=== PATIENT | male | born 1955 | race Caucasian/White ===

== ENCOUNTER → 2016-12-13 | Outpatient (CLI) | payer BC ==
[~2016-12-13] MED LIST: ACHD5005 PO; AMLO5TAB2 PO; AMOX-358 PO; ASP325T PO; CALC-9 PO; CLON1PAT14; CYAN10006 PO; CYCL10TA9 PO; FENO135C PO; FENO45CA; FINA5TAB6 PO; FRSM20T PO; FURO20TA4 PO; GABA-488 PO; GABA300C PO; GABA600T2 PO; GBPN100C PO; HYDR-3062 PO; HYDR-34 PO; HYDR-3820 PO; LEVO5TAB12 PO; MELA1TAB10 PO; MELO-195 PO; META800T PO; MULT-608 PO; NEBI5TAB8 PO; NFNEB10T PO; OMEG1CAP51 PO; POTA10CA43 PO; POTA20PA3 PO; PRED5TAB PO; TAMS0.4C2 PO; TRAM50TA2 PO; VITA-187 PO
[2016-12-13 06:46] LABS: MEAN PLATELET VOLUME 10.1 FL (7.4-10.4); RED BLOOD COUNT 5.18 10^6/uL (4.35-5.85); RED CELL DISTRIBUTION WIDTH 14.5 % (10.0-14.5); WHITE BLOOD COUNT 8.5 10^3/uL (4.3-11.0)
[2016-12-13 07:14] LABS: ALANINE AMINOTRANSFERASE 23 U/L (0-55); ANION GAP 11 MMOL/L (5-14); ASPARTATE AMINO TRANSFERASE 22 U/L (5-34); BILIRUBIN,TOTAL 0.5 MG/DL (0.1-1.0); BLOOD UREA NITROGEN 24 MG/DL (7-18); BUN/CREATININE RATIO 23; CALCIUM 9.7 MG/DL (8.5-10.1); CARBON DIOXIDE 23 MMOL/L (21-32); CHLORIDE 106 MMOL/L (98-107); CHOLESTEROL 244 MG/DL (< 200); CREATININE SERUM 1.06 MG/DL (0.60-1.30); DIRECT LDL 160 MG/DL (1-129); GFR ESTIMATED > 60; GLUCOSE 96 MG/DL (70-105); POTASSIUM 3.8 MMOL/L (3.6-5.0); SODIUM 140 MMOL/L (135-145); TOTAL PROTEIN 7.3 GM/DL (6.4-8.2); VLDL CHOLESTEROL 86 MG/DL (5-40)
[2016-12-13 07:44] LABS: TRIGLYCERIDES 430 MG/DL (<150)
== END ==
LOC: LAB 06:04
PROVIDERS: ATTEND Internal Medicine
DX: Z00.00 Encounter for general adult medical examination without abnormal findings (principal); E29.8 Other testicular dysfunction
CPT/HCPCS: 36415; 80053; 80061; 82306; 84153; 84403; 85027

== ENCOUNTER → 2017-06-08 | Outpatient (CLI) | payer BC | LOC: LAB 07:03 | PROVIDERS: ATTEND Internal Medicine | DX: M06.89 Other specified rheumatoid arthritis, multiple sites (principal) | CPT/HCPCS: 36415; 82550; 84550; 85652; 86038; 86039; 86141; 86162; 86200; 86235; 86255; 86430 ==

== ENCOUNTER → 2017-07-27 | Outpatient (CLI) | payer BC ==
[2017-07-27 08:15] LABS: HEMOGLOBIN 14.8 G/DL (13.3-17.7); MEAN PLATELET VOLUME 9.8 FL (7.4-10.4); RED BLOOD COUNT 5.41 10^6/uL (4.35-5.85); RED CELL DISTRIBUTION WIDTH 15.3 % (10.0-14.5); WHITE BLOOD COUNT 7.9 10^3/uL (4.3-11.0)
[2017-07-27 08:34] LABS: ALANINE AMINOTRANSFERASE 25 U/L (0-55); ALBUMIN 4.1 GM/DL (3.2-4.5); ALKALINE PHOSPHATASE 80 U/L (40-136); BILIRUBIN,TOTAL 0.4 MG/DL (0.1-1.0); BUN/CREATININE RATIO 18; CALCIUM 9.1 MG/DL (8.5-10.1); CARBON DIOXIDE 21 MMOL/L (21-32); CHLORIDE 108 MMOL/L (98-107); CREATININE SERUM 0.93 MG/DL (0.60-1.30); GFR ESTIMATED > 60; GLUCOSE 109 MG/DL (70-105); POTASSIUM 3.7 MMOL/L (3.6-5.0); SODIUM 140 MMOL/L (135-145); TOTAL PROTEIN 7.8 GM/DL (6.4-8.2)
== END ==
LOC: LAB 08:02
PROVIDERS: ATTEND Internal Medicine
DX: N18.3 Chronic kidney disease, stage 3 (moderate) (principal)
CPT/HCPCS: 36415; 80053; 85027

== ENCOUNTER → 2017-12-22 | Outpatient (CLI) | payer BC ==
[~2017-12-22] MED LIST changes: -AMLO5TAB2 PO; +AMLO5TAB7 PO
[2017-12-22 06:36] LABS: BASOPHILS % (AUTO) 1 % (0-10); EOSINOPHILS # (AUTO) 0.3 10^3/uL (0.0-0.3); EOSINOPHILS % (AUTO) 4 % (0-10); HEMATOCRIT 44 % (40-54); HEMOGLOBIN 14.8 G/DL (13.3-17.7); LYMPHOCYTES % (AUTO) 24 % (12-44); MEAN CORPUSCULAR HEMOGLOBIN 29 PG (25-34); MEAN CORPUSCULAR HGB CONC 34 G/DL (32-36); MEAN CORPUSCULAR VOLUME 87 FL (80-99); MEAN PLATELET VOLUME 9.4 FL (7.4-10.4); MONOCYTES # (AUTO) 0.7 X 10^3 (0.0-1.0); MONOCYTES % (AUTO) 9 % (0-12); NEUTROPHILS # (AUTO) 5.3 X 10^3 (1.8-7.8); NEUTROPHILS % (AUTO) 63 % (42-75); PLATELET COUNT 213 10^3/uL (130-400); RED BLOOD COUNT 5.05 10^6/uL (4.35-5.85); RED CELL DISTRIBUTION WIDTH 14.4 % (10.0-14.5); WHITE BLOOD COUNT 8.4 10^3/uL (4.3-11.0)
[2017-12-22 06:51] LABS: ALANINE AMINOTRANSFERASE 28 U/L (0-55); ALBUMIN 4.3 GM/DL (3.2-4.5); ALKALINE PHOSPHATASE 77 U/L (40-136); BILIRUBIN,TOTAL 0.6 MG/DL (0.1-1.0); BUN/CREATININE RATIO 16; CALCIUM 9.5 MG/DL (8.5-10.1); CARBON DIOXIDE 24 MMOL/L (21-32); CHLORIDE 105 MMOL/L (98-107); CREATININE SERUM 0.99 MG/DL (0.60-1.30); GFR ESTIMATED > 60; GLUCOSE 108 MG/DL (70-105); POTASSIUM 3.5 MMOL/L (3.6-5.0); SODIUM 140 MMOL/L (135-145); TOTAL PROTEIN 7.6 GM/DL (6.4-8.2)
== END ==
LOC: LAB 06:11
PROVIDERS: ATTEND Internal Medicine
DX: L40.59 Other psoriatic arthropathy (principal); Z79.899 Other long term (current) drug therapy
CPT/HCPCS: 36415; 80053; 85025

== ENCOUNTER → 2018-09-04 | Outpatient (CLI) | payer BC ==
[~2018-09-04] MED LIST changes: -AMLO5TAB7 PO; +AMLO5TAB9 PO; -GABA600T2 PO; +GBPN600T PO
[2018-09-04 06:41] LABS: BASOPHILS # (AUTO) 0.1 10^3/uL (0.0-0.1); BASOPHILS % (AUTO) 1 % (0-10); EOSINOPHILS # (AUTO) 0.2 10^3/uL (0.0-0.3); EOSINOPHILS % (AUTO) 3 % (0-10); HEMATOCRIT 45 % (40-54); LYMPHOCYTES % (AUTO) 23 % (12-44); MEAN CORPUSCULAR HEMOGLOBIN 28 PG (25-34); MEAN CORPUSCULAR HGB CONC 34 G/DL (32-36); MEAN CORPUSCULAR VOLUME 83 FL (80-99); MEAN PLATELET VOLUME 9.8 FL (7.4-10.4); MONOCYTES # (AUTO) 0.8 X 10^3 (0.0-1.0); MONOCYTES % (AUTO) 9 % (0-12); NEUTROPHILS # (AUTO) 5.5 X 10^3 (1.8-7.8); NEUTROPHILS % (AUTO) 64 % (42-75); PLATELET COUNT 209 10^3/uL (130-400); RED CELL DISTRIBUTION WIDTH 14.3 % (10.0-14.5); WHITE BLOOD COUNT 8.6 10^3/uL (4.3-11.0)
[2018-09-04 06:54] LABS: ALANINE AMINOTRANSFERASE 31 U/L (0-55); ALBUMIN 4.3 GM/DL (3.2-4.5); ALKALINE PHOSPHATASE 100 U/L (40-136); BILIRUBIN,TOTAL 0.7 MG/DL (0.1-1.0); BUN/CREATININE RATIO 15; CALCIUM 9.5 MG/DL (8.5-10.1); CARBON DIOXIDE 23 MMOL/L (21-32); CHLORIDE 107 MMOL/L (98-107); CHOLESTEROL 229 MG/DL (< 200); CREATININE SERUM 1.17 MG/DL (0.60-1.30); GFR ESTIMATED > 60; GLUCOSE 111 MG/DL (70-105); HDL CHOLESTEROL 31 MG/DL (40-60); SODIUM 141 MMOL/L (135-145); TOTAL PROTEIN 7.7 GM/DL (6.4-8.2); TRIGLYCERIDES 366 MG/DL (<150); VLDL CHOLESTEROL 73 MG/DL (5-40)
== END ==
LOC: LAB 06:20
PROVIDERS: ATTEND Internal Medicine Cardiovascular Disease
DX: R07.9 Chest pain, unspecified (principal); R06.09 Other forms of dyspnea; I10 Essential (primary) hypertension; E78.2 Mixed hyperlipidemia; G47.33 Obstructive sleep apnea (adult) (pediatric); Z98.890 Other specified postprocedural states
CPT/HCPCS: 36415; 80053; 80061; 84443; 85025

== ENCOUNTER → 2018-09-12 | Outpatient (CLI) | payer BC ==
[~2018-09-12] VITALS: Ht 188 cm; Wt 124.7 kg
[~2018-09-12] MED LIST changes: +ASPI-983 PO; +CALC600T80 PO; +CHOL20003 PO; +LOSA25TA41 PO; +MELA10CA2 PO; +MV,M1TAB4 PO; +OMG1KC PO; +REGADENOSON 0.4 MG/5 ML SYR (LEXISCAN) IV ONE; +ROSU10TA22 PO; +TAMS0.4C98 PO; +VITA1CAP19 PO
[2018-09-12] MEDS: CATHETER FLUSH 10 ML SYR IV PRN ×2 (11:49→13:18)
[2018-09-12 13:15] VITALS: BP 159/95
--- NOTE | 2018-09-12 20:00 | STRESS TEST ---
DATE OF SERVICE: 09/12/2018 LEXISCAN MYOVIEW STRESS TEST REPORT REFERRING PHYSICIAN: Dr. Hunter Morales. Baseline heart rate is 67. Baseline blood pressure 159/95. Baseline EKG is sinus rhythm with no ischemic changes. In summary, the patient was injected with 10.64 mCi of technetium-99 Myoview and the resting images were obtained. Then, the patient received 0.4 mg of Lexiscan, followed by 29.3 mCi of technetium-99 Myoview. Throughout the test, there were no EKG changes. The resting and stress images were reviewed and compared in the short axis, horizontal long axis, and vertical long axis views. Review of the images showed diaphragmatic attenuation with reversible ischemia involving the mid to apical inferior wall and inferolateral wall. SSS is 7, SDS 5, TID value 1.02. On the gated images, the left ventricle appeared to be in normal size with normal contractility. Calculated ejection fraction 54%. IN CONCLUSION: 1. The patient tolerated Lexiscan well. 2. Diaphragmatic attenuation with reversible ischemia involving the mid to apical inferior wall and inferolateral wall. 3. Normal left ventricular size with normal contractility. Calculated ejection fraction 54%. Job ID: [id number] DocumentID: [id number] Dictated Date: 09/12/2018 16:31:17 Gravity Flow Irrigator Date: 09/12/2018 20:00:09 Dictated By: ELIER LUGO MD
== END ==
LOC: CARD 11:38
PROVIDERS: ATTEND Internal Medicine Cardiovascular Disease
DX: R07.9 Chest pain, unspecified (principal); R06.09 Other forms of dyspnea; I10 Essential (primary) hypertension; E78.2 Mixed hyperlipidemia; G47.33 Obstructive sleep apnea (adult) (pediatric); Z98.890 Other specified postprocedural states
CPT/HCPCS: 78452; 93017

== ENCOUNTER → 2018-09-13 | Outpatient (CLI) | payer BC ==
[~2018-09-13] MED LIST changes: -REGADENOSON 0.4 MG/5 ML SYR (LEXISCAN) IV ONE
== END ==
LOC: CARD 09-04 06:20
PROVIDERS: ATTEND Internal Medicine Cardiovascular Disease
DX: R07.9 Chest pain, unspecified (principal); R06.09 Other forms of dyspnea; I10 Essential (primary) hypertension; E78.2 Mixed hyperlipidemia; G47.33 Obstructive sleep apnea (adult) (pediatric); Z98.890 Other specified postprocedural states; I08.0 Rheumatic disorders of both mitral and aortic valves
CPT/HCPCS: 93306

== ENCOUNTER 2018-09-14 07:39 | Day surgery (SDC) | payer BC ==
[~2018-09-14] VITALS: Ht 188 cm; Wt 124.3 kg
[~2018-09-14 07:39] MED LIST changes: -ASPI-983 PO; -CALC600T80 PO; -CHOL20003 PO; -LOSA25TA41 PO; -MELA10CA2 PO; -MV,M1TAB4 PO; -OMG1KC PO; -ROSU10TA22 PO; -TAMS0.4C98 PO; -VITA1CAP19 PO
[2018-09-14] MEDS ORDERED: HEParin (CATH LAB) 2,000 ML IV ONE (07:43)
[2018-09-14] MEDS ORDERED: NS IV 1000 ML 1,000 ML ONE (07:43)
[2018-09-14] MEDS ORDERED: LIDOCAINE 1% INJ 20 ML 20 ML VIAL ONE (07:43)
[2018-09-14] MEDS ORDERED: NS IV 1000 ML 1,000 ML IV SCH ×2 (07:53→13:56)
[2018-09-14 08:04] VITALS: BP 153/95
[2018-09-14 08:13] VITALS: BP 153/95
--- NOTE | 2018-09-14 08:23 | Diagnostic Imaging Report ---
PATIENT HISTORY: CHEST PAIN. Abnormal stress test, hypertension, shortness of breath. TECHNIQUE: Single frontal view of the chest COMPARISON: 11/16/2015 FINDINGS: Lung volumes are mildly large. No focal consolidation is seen. There is no pleural effusion or pneumothorax. The cardiac silhouette appears mildly prominent, likely due to the AP technique. No acute osseous abnormality seen. IMPRESSION: No acute pulmonary abnormality seen. Dictated by: Dictated on workstation # [id number]
[2018-09-14 08:37] LABS: INR 0.9 (0.8-1.4); PROTHROMBIN TIME PATIENT 12.9 SEC (12.2-14.7)
[2018-09-14] MEDS ORDERED: ASPI-983 PO (08:51)
[2018-09-14] MEDS ORDERED: HYDR-3820 PO (08:51)
[2018-09-14] MEDS ORDERED: CHOL20003 PO (08:51)
[2018-09-14] MEDS ORDERED: LOSA25TA41 PO (08:51)
[2018-09-14] MEDS ORDERED: GBPN600T PO (08:51)
[2018-09-14] MEDS ORDERED: TAMS0.4C98 PO (08:51)
[2018-09-14] MEDS ORDERED: OMG1KC PO (08:51)
[2018-09-14] MEDS ORDERED: CALC600T80 PO (08:51)
[2018-09-14] MEDS ORDERED: VITA1CAP19 PO (08:51)
[2018-09-14] MEDS ORDERED: MELA10CA2 PO (08:51)
[2018-09-14] MEDS ORDERED: MV,M1TAB4 PO (08:51)
[2018-09-14] MEDS ORDERED: ROSU10TA22 PO (08:51)
--- NOTE | 2018-09-14 08:54 | NUR ---
SPOKE WITH THE PATIENT AND HIS ABOUT MEDICATIONS. SHE HAD A DETAILED MEDICATION LIST WITH HER AND I COMPARED WITH THE LIST SENT OVER FROM THE OFFICE.
[2018-09-14] MEDS ORDERED: MIDAZOLAM 5 MG/5 ML (VERSED) VIAL ONE (09:30)
--- NOTE | 2018-09-14 12:56 | Cardiac Procedure Note-CS/ASA ---
Pre-Procedure Note Pre-Op Procedure Note H&P Reviewed The H&P was reviewed, patient examined and no changes noted. Date H&P Reviewed: September 14, 2018 Time H&P Reviewed: 12:55 Conscious Sedation Pre-Proced Time 12:55 ASA Score 3 For ASA 3 and 4: Consider anesthesia and medical clearance. Also, for patients with a history of failed moderate sedation consider anesthesia. Airway Lungs Heart ASA score ASA 1: a normal healthy patient ASA 2: a patient with a mild systemic disease (mid diabetes, controlled hypertension, obesity x ASA 3: a patient with a severe systemic disease that limits activity (angina, COPD, prior Myocardial infarction) ASA 4: a patient with an incapacitating disease that is a constant threat to life (CHF, renal failure) ASA 5: a moribund patient not expected to survive 24 hrs. (ruptured aneurysm) ASA 6: a declared brain- patient whose organs are being harvested. For emergent operations, add the letter E after the classification Mallampati Classification Grade 3 Sedation Plan Analgesia, Amnesia, Plan communicated to team members, Discussed options with patient/fam, Discussed risks with patient/fam The patient is an appropriate candidate to undergo the planned procedure, sedation, and anesthesia. The patient immediately re-assessed prior to indication. ELIER LUGO MD September 14, 2018 12:56
--- NOTE | 2018-09-14 13:58 | Discharge Inst-Post CATH ---
Discharge Inst-CATH/EP Post Cardiac Cath/EP D/C Inst Follow Up/Plan Appointment with Dr. LUGO's office in 2-4 weeks <b>CARDIAC CATH/EP PROCEDURE DISCHARGE INSTRUCTIONS</b> Cardiac Rehab Please be expecting a follow up call from Cardiac Rehab within in one week. ACTIVITY * Go Home directly and rest. * Limit activity of the leg (or wrist if it was used) for 7 days including aerobics, swimming, jogging, bicycling, etc. * Restrict stair-climbing for 7 days if possible, if not, climb up with your non-cath leg, then bring together on the same step. * Avoid lifting, pushing, pulling or excessive movement of the affected extremity for 7 days. * Customary sexual activity may be resumed after 2 days-use caution not to use a position that strains or causes pain to the affected extremity. * No driving for 24 hours. * NO SMOKING. * Avoid straining for bowel movements for 7 days. * Gentle walking on level ground is allowed. * Returning to work will depend on the type of procedure and the results. Your doctor will discuss this with you. CALL YOUR DOCTOR FOR ANY OF THE FOLLOWING: *If bleeding from the puncture site occurs- Apply gentle pressure to site with clean cloth and call your doctor or EMS. * If a knot or lump forms under the skin, increases in size, or causes pain. * If bruising appears to be worsening or moving further down your leg instead of disappearing. * Temperature above 101 F. CARE OF YOUR GROIN INCISION; * Bruising or purple discoloration of the skin near the puncture site is common. * You may shower only, no bathtub bathing for 5 days. Be careful to avoid slipping as your leg may feel stiff. * If a closure device was used on your femoral artery, please see the attached guide regarding care of the device and your leg. * Leave dressing on FOR 24 hours. CARE OF YOUR WRIST INCISION; * Bruising or purple discoloration of the skin near the puncture site is common. * You may shower. * DO NOT submerge wrist. * Leave dressing on FOR 24 hours. ELIER LUGO MD September 14, 2018 13:58
[2018-09-14] MEDS ORDERED: PATIENT MAY USE OWN MEDS, ALL PO SCH (14:00)
--- NOTE | 2018-09-14 14:02 | Cardiac Cath Report ---
Cardiac Cath Report Physician (s)/Concrete [employer] Mason (s) Physician ELIER LUGO MD Pre-Procedure Diagnosis Pre-Procedure Diagnosis: coronary artery disease Post-Procedure Note Procedure Start Date: September 14, 2018 Name of Procedure: Left heart catheterization Left ventriculogram Aortic arch angiogram Findings/Procedure Note PROCEDURE NOTE: 62 years old gentleman with history of hypertension, recurrent chest pain, had an abnormal stress test, scheduled for cardiac catheterization, during the procedure noted to have significant tortuosity in the thoracic aorta. I did aortic arch angiogram to evaluate the aorta. After explaining the procedure to the patient, all pros and cons were explained, all questions were answered. The patient signed the consent and then he was placed on the cardiac catheterization laboratory. Groin was prepped SL fashion local anesthesia was used. Sheath placed in the Right femoral artery. Kimber[place] right and left catheter were used to access the coronary system. Pigtail was used to access the left ventricular cavity. Left ventriculogram was done Aortic arch angiogram was done At the end of the procedure the sheath was removed. Closure device was used FINDINGS: Hemodynamics LV 160/18, end-diastolic pressure of 18 Aorta 175/98 mean of 129 ANATOMY: Left Main is free of obstructive disease Left Anterior Descending has mild disease nonobstructive disease Left Circumflex has mild disease nonobstructive disease Right Coronory Artery is tortuous artery with 40-50 percent stenosis nonobstru ctive disease LV Gram is normal in size with normal contractility estimated ejection fraction 60 percent Aorta evaluation done with aortic arch angiogram which showed some tortuosity in the aorta, no dissection or aneurysm, origin of the innominate artery, left carotid artery and left subclavian artery showed mild plaque, no significant disease CONCLUSION: 1. Mild coronary artery disease, 40-50 percent proximal right coronary artery nonobstructive disease otherwise no significant obstructive disease 2. Normal left ventricular size and systolic function test and ejection fraction 60 percent 3. Normal aortic arch and great vessels of the neck DISCUSSION AND RECOMMENDATION: continue with medical therapy no intervention is needed Anesthesia Type: Conscious Sedation Estimated blood loss (mL): 20 ml Contrast Amount: 67 ml Total Radiation Dose: 728 mGy Post-Procedure Diagnosis Post-operative diagnosis: Chest pain Coronary artery disease Hypertension Hyperlipidemia ELIER LUGO MD September 14, 2018 14:02
[2018-09-14 14:15] VITALS: BP 144/101
[2018-09-14 14:30] VITALS: BP 174/117
--- NOTE | 2018-09-14 14:37 | NUR ---
PT REQUESTING PAIN MEDICATION, REQUESTING HIS BP MEDS BE GIVEN, PT AND INFORMED TO BRING MEDICATIONS FROM HOME, STATES "CAN'T HE JUST TAKE YOURS", PT AND EDUCATED ON USE OF HOME MEDS VS HOSPITAL. NEW ORDERS RECEIVED VIA TELEPHONE TO RESUME ALL HOME MEDICATIONS.
[2018-09-14 14:45] VITALS: BP 154/106
[2018-09-14] MEDS ORDERED: HYDROcodone/APAP 10 MG/325 MG (LORTAB) TAB PO PRN (14:45)
[2018-09-14 15:00] VITALS: BP 142/99
[2018-09-14] MEDS ORDERED: HYDROcodone/APAP 10 MG/325 MG (LORTAB) TAB PO ONE (15:14)
[2018-09-14] MEDS ORDERED: ASPIRIN E.C. 81 MG (ECOTRIN) TAB PO SCH (15:24)
[2018-09-14] MEDS ORDERED: FINASTERIDE (PROSCAR) 5 MG TAB PO SCH (15:26)
[2018-09-14] MEDS ORDERED: FUROSEMIDE 20 MG (LASIX) TAB PO SCH (15:27)
[2018-09-14] MEDS ORDERED: amLODIPine 5 MG (NORVASC) TAB PO SCH (15:28)
[2018-09-14] MEDS ORDERED: LOSARTAN 25 MG (COZAAR) TAB PO SCH (15:29)
[2018-09-14] MEDS ORDERED: VITAMIN D3 1,000 UNITS (CHOLECALCIFEROL) TABLET PO SCH (17:00)
[2018-09-14] MEDS ORDERED: CALCIUM CARBONATE 600 MG (CALCARB) TAB PO SCH (17:00)
[2018-09-14] MEDS ORDERED: KCL 10 MEQ TAB (MICRO K) PO SCH (17:00)
[2018-09-14] MEDS ORDERED: GABAPENTIN 600 MG (NEURONTIN) TAB PO SCH (17:00)
[2018-09-14] MEDS ORDERED: OMEGA 3 (FISH OIL) 1000 MG CAP PO SCH (17:00)
[2018-09-14] MEDS ORDERED: TAMSULOSIN 0.4 MG (FLOMAX) CAP PO SCH (18:00)
[2018-09-14] MEDS ORDERED: CYCLOBENZAPRINE 10 MG (FLEXERIL) TAB PO SCH (21:00)
[2018-09-14] MEDS ORDERED: NEBIVOLOL 5 MG TAB (BYSTOLIC) PO SCH (21:00)
[2018-09-14] MEDS ORDERED: LORATADINE (CLARITIN) 10 MG TAB PO SCH (21:00)
[2018-09-14] MEDS ORDERED: ROSUVASTATIN 10 MG (CRESTOR) TABLET PO SCH (21:00)
[2018-09-14] MEDS ORDERED: MELATONIN 3 MG TABLET PO SCH (21:00)
[2018-09-15] MEDS ORDERED: MULTIVIT W/MINERALS TAB (THERAGRAN M) PO SCH (07:00)
[2018-09-15] MEDS ORDERED: VITAMIN B COMPLEX PO SCH (09:00)
== END 2018-09-14 18:30 | disposition home or self-care (01) ==
LOC: CATH 07:39 → ICU 14:10 → CATH 18:30
PROVIDERS: ATTEND Internal Medicine Cardiovascular Disease
DX: R07.9 Chest pain, unspecified (principal); I25.10 Atherosclerotic heart disease of native coronary artery without angina pectoris; I77.1 Stricture of artery; I10 Essential (primary) hypertension; E78.2 Mixed hyperlipidemia; G47.33 Obstructive sleep apnea (adult) (pediatric); J44.9 Chronic obstructive pulmonary disease, unspecified; R94.31 Abnormal electrocardiogram [ECG] [EKG]; M19.91 Primary osteoarthritis, unspecified site; E66.9 Obesity, unspecified; Z68.35 Body mass index [BMI] 35.0-35.9, adult; Z87.891 Personal history of nicotine dependence; Z79.82 Long term (current) use of aspirin; Z79.899 Other long term (current) drug therapy
CPT/HCPCS: 36221; 36415; 71045; 85610; 85730; 87081; 93458

== ENCOUNTER → 2020-01-22 | Outpatient (CLI) | payer OTHER ==
[~2020-01-22] MED LIST changes: +ACHYD1T PO; +ASPI-1238 PO; +CALC600T80 PO; +CHOL20003 PO; +CYAN-41 PO; -CYAN10006 PO; -HYDR-3062 PO; -HYDR-3820 PO; +LOSA25TA41 PO; +MELA10CA2 PO; +MV,M1TAB4 PO; +OMG1KC PO; +ROSU10TA22 PO; +TMSL.4C PO; +TRM50T PO; +VITA1CAP19 PO
[2020-01-22 06:15] LABS: HEMOGLOBIN 14.1 g/dL (13.3-17.7); MEAN PLATELET VOLUME 9.6 fL (9.0-12.2); WHITE BLOOD COUNT 10.4 10^3/uL (4.3-11.0)
[2020-01-22 06:38] LABS: CHLORIDE 104 MMOL/L (98-107); POTASSIUM 4.1 MMOL/L (3.6-5.0); SODIUM 139 MMOL/L (135-145)
[2020-01-22 06:39] LABS: ALBUMIN 4.1 GM/DL (3.2-4.5)
[2020-01-22 06:40] LABS: CALCIUM 9.4 MG/DL (8.5-10.1); TRIGLYCERIDES 152 MG/DL (<150); VLDL CHOLESTEROL 30 MG/DL (5-40)
[2020-01-22 06:41] LABS: GLUCOSE 105 MG/DL (70-105); TOTAL PROTEIN 7.5 GM/DL (6.4-8.2)
[2020-01-22 06:42] LABS: CARBON DIOXIDE 25 MMOL/L (21-32)
[2020-01-22 06:43] LABS: BILIRUBIN,TOTAL 0.9 MG/DL (0.1-1.0)
[2020-01-22 06:45] LABS: ALKALINE PHOSPHATASE 76 U/L (40-136); CHOLESTEROL 133 MG/DL (< 200); CREATININE SERUM 1.04 MG/DL (0.60-1.30); GFR ESTIMATED > 60
[2020-01-22 06:46] LABS: BUN/CREATININE RATIO 18
[2020-01-22 06:47] LABS: HDL CHOLESTEROL 32 MG/DL (40-60)
[2020-01-22 06:48] LABS: ALANINE AMINOTRANSFERASE 19 U/L (0-55)
== END ==
LOC: LAB 05:49
PROVIDERS: ATTEND Internal Medicine
DX: Z00.00 Encounter for general adult medical examination without abnormal findings (principal); I10 Essential (primary) hypertension; M51.06 Intervertebral disc disorders with myelopathy, lumbar region
CPT/HCPCS: 80053; 80061; 82306; 85027; 86735; 86765; G0103; 36415; 84153

== ENCOUNTER → 2020-03-25 | Outpatient (CLI) | payer OTHER ==
[~2020-03-25] MED LIST changes: +AMLO-250 PO; -AMLO5TAB9 PO
--- NOTE | 2020-03-25 13:37 | Diagnostic Imaging Report ---
PROCEDURE: US Venous Lower Ext Royal. TECHNIQUE: Multiple real-time grayscale images were obtained over the lower extremities in various projections, bilaterally. Additional duplex Doppler and color Doppler images were also obtained. INDICATION: Bilateral leg pain and cramping. FINDINGS: There is no evidence of right or left lower extremity DVT. Both lower extremity deep venous systems show normal compressibility with normal response to augmentation and Valsalva. No fluid collection or mass is detected. IMPRESSION: No evidence of right or left lower extremity DVT. Dictated by: Dictated on workstation # [id number]
== END ==
LOC: RAD 12:45
PROVIDERS: ATTEND Internal Medicine
DX: I80.203 Phlebitis and thrombophlebitis of unspecified deep vessels of lower extremities, bilateral (principal)
CPT/HCPCS: 93970

== ENCOUNTER → 2020-04-03 | Outpatient (CLI) | payer OTHER ==
[2020-04-03 11:43] LABS: CREATININE SERUM 1.04 MG/DL (0.60-1.30)
== END ==
LOC: LAB 10:53
PROVIDERS: ATTEND Internal Medicine
DX: M79.669 Pain in unspecified lower leg (principal); Z87.891 Personal history of nicotine dependence
CPT/HCPCS: 36415; 82043; 82085; 82550; 82565; 85652; 86021; 86038; 86039; 86141; 86162; 86200; 86235; 86255; 86431

== ENCOUNTER → 2020-07-13 | Outpatient (CLI) | payer OTHER | LOC: WOUNDCARE 09:45 | PROVIDERS: ATTEND Surgery | DX: T23.322A Burn of third degree of single left finger (nail) except thumb, initial encounter (principal); I89.0 Lymphedema, not elsewhere classified; W86.1XXA Exposure to industrial wiring, appliances and electrical machinery, initial encounter | CPT/HCPCS: 16020; G0463 ==

== ENCOUNTER 2020-11-01 23:17 | Inpatient (IN) | payer OTHER ==
[~2020-11-01] VITALS: Ht 190 cm; Wt 118.2 kg
[2020-11-02] VITALS (7 sets, daily range): BP systolic 132–157; BP diastolic 79–91
[2020-11-02] MEDS ORDERED: NS IV 1000 ML 1,000 ML IV SCH
[2020-11-02] MEDS ORDERED: ACETAMINOPHEN 500 MG TAB (TYLENOL) PO ONE
--- NOTE | 2020-11-02 00:03 | ED Respiratory ---
General Chief Complaint: Respiratory Problems Stated Complaint: SOB / COUGH / CONGESTION Nursing Triage Note: c/o cough, soa for a few days. History of Present Illness Date Seen by Provider: Nov 01, 2020 Time Seen by Provider: 23:48 Initial Comments Patient is a 65-year-old male who presents to the emergency department today with a chief complaint of shortness of breath, cough, upper respiratory congestion and generalized feelings of malaise and headache for the last 4 to 5 days. Patient states he has become progressively more short of breath in the last 24 to 48 hours. He feels like he cannot catch his breath. He is having some diarrhea he is having body aches. He denies earache but has a mild sore throat. No chest pain but has the shortness of breath. He states his cough is occasionally productive but mostly dry. No problems with urination. He has a history of hypertension and high cholesterol he is not a diabetic. He is not a smoker. He is not Covid vaccinated. All other review of systems reviewed and negative except as stated above. Timing/Duration: week, getting worse Severity: moderate Prior Episodes/Possible Cause: illness exposure Modifying Factors: Improves With Coughing Associated Symptoms: cough, fever/chills, headache, muscle aches, nasal congestion, shortness of breath, sore throat Allergies and Home Medications Allergies Coded Allergies: hydromorphone HCl (Unverified Allergy, Intermediate, ITCHING, HAS RECEIVED HYDROCODONE IN THE PAST, 11/16/15) fentanyl (Unverified Allergy, Mild, 12/30/08) nalbuphine (Unverified Allergy, Mild, RECEIVED MORPHINE IN OR, 11/16/15) Home Medications Amlodipine Besylate 5 Mg Tablet, 5 MG PO DAILY, (Reported) Aspirin 81 Mg Tablet.dr, 81 MG PO DAILY, (Reported) Calcium Carbonate 600 Mg Tablet, 1,200 MG PO BID, (Reported) Cholecalciferol (Vitamin D3) 2,000 Unit Capsule, 2,000 UNIT PO BID, (Reported) Cyclobenzaprine HCl 10 Mg Tablet, 10 MG PO HS, (Reported) Finasteride 5 Mg Tablet, 5 MG PO DAILY, (Reported) Furosemide 20 Mg Tablet, 20 MG PO DAILY, (Reported) Gabapentin 600 Mg Tablet, 600 MG PO QID, (Reported) Hydrocodone Bit/Acetaminophen 1 Each Tablet, 1-2 TAB PO Q6H PRN for PAIN- MODERATE, (Reported) Levocetirizine Dihydrochloride 5 Mg Tablet, 5 MG PO HS, (Reported) Losartan Potassium 25 Mg Tablet, 25 MG PO DAILY, (Reported) Melatonin 10 Mg Capsule, 10 MG PO HS, (Reported) Metaxalone 800 Mg Tablet, 800 MG PO BID, (Reported) Mv,Minerals/FA/Lycopene/Ginkgo 1 Each Tablet, 1 TAB PO DAILY, (Reported) Nebivolol HCl 10 Mg Tab, 10 MG PO HS, (Reported) [place] 3 Polyunsat Fatty Acids 1,000 Mg Cap, 1,000 MG PO DAILY, (Reported) Potassium Chloride 10 Meq Capsule.er, 10 MEQ PO BID, (Reported) Rosuvastatin Calcium 10 Mg Tablet, 10 MG PO HS, (Reported) HAS NOT STARTED YET Tamsulosin HCl 0.4 Mg Cap, 0.4 MG PO DAILY, (Reported) Tramadol HCl 50 Mg Tablet, 50 MG PO QID, (Reported) Vitamin B Complex 1 Each Capsule, 1 CAP PO DAILY, (Reported) Patient Home Medication List Home Medication List Reviewed: Yes Review of Systems Review of Systems Constitutional: see HPI, chills, fever, malaise, weakness EENTM: throat pain Respiratory: cough, short of breath Cardiovascular: no symptoms reported Gastrointestinal: diarrhea Genitourinary: no symptoms reported Musculoskeletal: muscle cramps Skin: no symptoms reported Psychiatric/Neurological: No Symptoms Reported All Other Systems Reviewed Negative Unless Noted: Yes Past Lahglre-Ilfhic-Fcrvqz Hx Patient Social History Pt feels they are or have been: No Immunizations Up To Date Tetanus Booster (TDap): Unknown Seasonal Allergies Seasonal Allergies: No Past Medical History Gallbladder, Joint Replacement, Orthopedic Respiratory: Yes Sleep Apnea Currently Using CPAP: Yes Cardiac: Yes High Cholesterol, Hypertension Neurological: No Reproductive Disorders: No Genitourinary: No Gastrointestinal: No Degenerate Disk Disease, Back Injury, Chronic Back Pain Cancer: No Blood Disorders: No Adverse Reaction/Blood Tranf: No Family Medical History Unknown family medical history No Pertinent Family Hx Physical Exam Vital Signs - First Documented 11/01/20 11/02/20 23:55 00:20 Temp 38.9 Pulse 80 Resp 24 B/P (MAP) 154/89 (110) Pulse Ox 95 O2 Delivery Nasal Cannula O2 Flow Rate 3.00 Capillary Refill : Height: 6'2.00" Weight: 274lbs. 0.0oz. 124.577549zh; 32.00 BMI Method:Stated General Appearance: WD/WN, no apparent distress Eyes: Bilateral Eye Normal Inspection, Bilateral Eye PERRL HEENT: PERRL/EOMI, other (very dry oral mucosa) Neck: full range of motion Respiratory: no respiratory distress, no accessory muscle use, wheezing Cardiovascular: regular rate, rhythm Gastrointestinal: normal bowel sounds, non tender, soft Extremities: non-tender, normal inspection, no pedal edema, no calf tenderness Neurologic/Psychiatric: alert, normal mood/affect, oriented x 3 Skin: normal color, warm/dry Focused Exam Lactate Level 11/01/20 23:45: Lactic Acid Level 1.31 Lactic Acid Level Laboratory Tests Test 11/01/20 23:45 Lactic Acid Level 1.31 MMOL/L (0.50-2.00) Progress/Results/Core Measures Suspected Sepsis SIRS Temperature: Pulse: 80 Respiratory Rate: 24 Laboratory Tests 11/01/20 23:45: White Blood Count 5.6 Blood Pressure 154 /89 Mean: 110 11/01/20 23:45: Lactic Acid Level 1.31 Laboratory Tests 11/01/20 23:45: Creatinine 1.30, INR Comment 1.0, Platelet Count 239, Total Bilirubin 0.5 Results/Orders Lab Results Laboratory Tests Test 11/01/20 23:45 11/01/20 23:57 11/02/20 00:10 Range/Units White Blood Count 5.6 4.3-11.0 10^3/uL Red Blood Count 5.13 4.30-5.52 10^6/uL Hemoglobin 13.9 13.3-17.7 g/dL Hematocrit 43 40-54 % Mean Corpuscular Volume 84 80-99 fL Mean Corpuscular Hemoglobin 27 25-34 pg Mean Corpuscular Hemoglobin Concent 32 32-36 g/dL Red Cell Distribution Width 14.6 H 10.0-14.5 % Platelet Count 239 130-400 10^3/uL Mean Platelet Volume 9.9 9.0-12.2 fL Immature Granulocyte % (Auto) 1 % Neutrophils (%) (Auto) 71 42-75 % Lymphocytes (%) (Auto) 21 12-44 % Monocytes (%) (Auto) 6 0-12 % Eosinophils (%) (Auto) 1 0-10 % Basophils (%) (Auto) 0 0-10 % Neutrophils # (Auto) 4.0 1.8-7.8 10^3/uL Lymphocytes # (Auto) 1.2 1.0-4.0 10^3/uL Monocytes # (Auto) 0.4 0.0-1.0 10^3/uL Eosinophils # (Auto) 0.1 0.0-0.3 10^3/uL Basophils # (Auto) 0.0 0.0-0.1 10^3/uL Immature Granulocyte # (Auto) 0.0 0.0-0.1 10^3/uL Prothrombin Time 13.2 12.2-14.7 SEC INR Comment 1.0 0.8-1.4 Activated Partial Thromboplast Time 28 24-35 SEC D-Dimer 1.35 H 0.00-0.49 UG/ML Sodium Level 140 135-145 MMOL/L Potassium Level 4.3 3.6-5.0 MMOL/L Chloride Level 105 98-107 MMOL/L Carbon Dioxide Level 22 21-32 MMOL/L Anion Gap 13 5-14 MMOL/L Blood Urea Nitrogen 28 H 7-18 MG/DL Creatinine 1.30 0.60-1.30 MG/DL Estimat Glomerular Filtration Rate 56 BUN/Creatinine Ratio 22 Glucose Level 94 70-105 MG/DL Lactic Acid Level 1.31 0.50-2.00 MMOL/L Calcium Level 8.7 8.5-10.1 MG/DL Corrected Calcium 8.9 8.5-10.1 MG/DL Total Bilirubin 0.5 0.1-1.0 MG/DL Aspartate Amino Transf (AST/SGOT) 46 H 5-34 U/L Alanine Aminotransferase (ALT/SGPT) 48 0-55 U/L Alkaline Phosphatase 61 40-136 U/L Total Protein 7.3 6.4-8.2 GM/DL Albumin 3.8 3.2-4.5 GM/DL Procalcitonin 0.05 <0.10 NG/ML SARS-CoV-2 RNA (RT-PCR) Detected H Not Detecte Urine Color ORANGE Urine Clarity SL CLOUDY Urine pH 5.5 5-9 Urine Specific [place] 1.015 L 1.016-1.022 Urine Protein TRACE H NEGATIVE Urine Glucose (UA) NEGATIVE NEGATIVE Urine Ketones NEGATIVE NEGATIVE Urine Nitrite NEGATIVE NEGATIVE Urine Bilirubin NEGATIVE NEGATIVE Urine Urobilinogen 1.0 < = 1.0 MG/DL Urine Leukocyte Esterase NEGATIVE NEGATIVE Urine RBC (Auto) NEGATIVE NEGATIVE Urine RBC NONE /HPF Urine WBC NONE /HPF Urine Squamous Epithelial Cells 0-2 /HPF Urine Crystals NONE /LPF Urine Bacteria NEGATIVE /HPF Urine Casts NONE /LPF Urine Mucus SMALL H /LPF Urine Culture Indicated CULTURE PENDING My Orders Orders - NETO GRAYSON MD Cbc With Automated Diff (11/01/20 23:57) Comprehensive Metabolic Panel (11/01/20 23:57) Blood Culture (11/01/20 23:57) Sputum Culture (11/01/20 23:57) Urinalysis (11/01/20 23:57) Urine Culture (11/01/20 23:57) Protime With Inr (11/01/20 23:57) Partial Thromboplastin Time (11/01/20 23:57) Ed Iv/Invasive Line Start (11/01/20 23:57) Ed Iv/Invasive Line Start (11/01/20 23:57) Vital Signs Adult Sepsis Patie Q15M (11/01/20 23:57) O2 (11/01/20 23:57) Remove Rings In Anticipation O (11/01/20 23:57) Lactic Acid Analyzer (11/01/20 23:57) Fibrin Degradation Products (11/01/20 23:57) Procalcitonin (Pct) (11/01/20 23:57) Covid 19 Inhouse Test (11/01/20 23:57) Ns Iv 1000 Ml (Sodium Chloride 0.9%) (11/02/20 00:00) Acetaminophen Tablet (Tylenol Tablet) (11/02/20 00:00) Albuterol Inhaler (Ventolin Hfa) (11/02/20 02:00) Chest 1 View, Ap/Pa Only (11/02/20 00:01) Albuterol Inhaler (Ventolin Hfa) (11/02/20 00:11) Medications Given in ED Current Medications Medications Dose Ordered Sig/Jerry Route Start Time Stop Time Status Last Admin Dose Admin Acetaminophen 1,000 mg ONCE ONCE PO 11/02/20 00:00 11/02/20 00:01 DC 11/02/20 00:21 1,000 MG Vital Signs/I&O 11/01/20 11/02/20 23:55 00:20 Temp 38.9 Pulse 80 Resp 24 B/P (MAP) 154/89 (110) Pulse Ox 95 O2 Delivery Nasal Cannula O2 Flow Rate 3.00 Capillary Refill : Blood Pressure Mean: 110 Progress Note : Time: 01:34 Progress Note Patient looks much better after IV fluids, fever is down. Pulse is in the mid 90s. Oxygen saturations 96% on 3 L. No increased work of breathing and appears comfortable. Case is discussed with Dr. Solorio who accepts the patient for admission ECG Initial ECG Impression Date: Nov 02, 2020 Initial ECG Impression Time: 00:05 Initial ECG Rate: 82 Initial ECG Rhythm: Normal Sinus Initial ECG Intervals: Normal Initial ECG Impression: Normal Departure Communication (Admissions) Time/Spoke to Admitting Phy: 01:[address] Solorio who accepts the patient for admission Impression Primary Impression: Fever Qualified Codes: R50.9 - Fever, unspecified Additional Impression: Pneumonia due to COVID-19 virus Disposition: ADMITTED INPATIENT Condition: Stable Admissions Decision to Admit Reason: Admit from ER (General) Decision to Admit/Date: Nov 02, 2020 Time/Decision to Admit Time: 01:35 Departure-Patient Inst. Referrals: ROULA WHITING APRN (PCP) Primary Care Physician NETO GRAYSON MD Nov 02, 2020 00:03
[2020-11-02 00:06] LABS: BASOPHILS % (AUTO) 0 % (0-10); EOSINOPHILS # (AUTO) 0.1 10^3/uL (0.0-0.3); EOSINOPHILS % (AUTO) 1 % (0-10); HEMATOCRIT 43 % (40-54); HEMOGLOBIN 13.9 g/dL (13.3-17.7); LYMPHOCYTES # (AUTO) 1.2 10^3/uL (1.0-4.0); LYMPHOCYTES % (AUTO) 21 % (12-44); MEAN CORPUSCULAR HEMOGLOBIN 27 pg (25-34); MEAN CORPUSCULAR HGB CONC 32 g/dL (32-36); MEAN CORPUSCULAR VOLUME 84 fL (80-99); MEAN PLATELET VOLUME 9.9 fL (9.0-12.2); MONOCYTES # (AUTO) 0.4 10^3/uL (0.0-1.0); MONOCYTES % (AUTO) 6 % (0-12); NEUTROPHILS % (AUTO) 71 % (42-75); PLATELET COUNT 239 10^3/uL (130-400); WHITE BLOOD COUNT 5.6 10^3/uL (4.3-11.0)
[2020-11-02] MEDS ORDERED: RT-ALBUTEROL INHALER HFA (VENTOLIN HFA) 18 GM IH ONE (00:11)
[2020-11-02 00:12] LABS: ALBUMIN 3.8 GM/DL (3.2-4.5); POTASSIUM 4.3 MMOL/L (3.6-5.0)
[2020-11-02 00:13] LABS: CALCIUM 8.7 MG/DL (8.5-10.1)
[2020-11-02 00:14] LABS: TOTAL PROTEIN 7.3 GM/DL (6.4-8.2)
[2020-11-02 00:16] LABS: BILIRUBIN,TOTAL 0.5 MG/DL (0.1-1.0)
[2020-11-02 00:18] LABS: CREATININE SERUM 1.3 MG/DL (0.60-1.30)
[2020-11-02 00:20] LABS: BILIRUBIN,URINE NEGATIVE (NEGATIVE); CLARITY,URINE SL CLOUDY; COLOR,URINE ORANGE; GLUCOSE, URINE (UA) NEGATIVE (NEGATIVE); KETONES,URINE NEGATIVE (NEGATIVE); LEUKOCYTE ESTERASE ,URINE NEGATIVE (NEGATIVE); NITRITE,URINE NEGATIVE (NEGATIVE); PH,URINE 5.5 (5-9); PROTEIN,URINE TRACE (NEGATIVE)
[2020-11-02] MEDS: RT-ALBUTEROL INHALER HFA (VENTOLIN HFA) 18 GM IH SCH ×7 (00:22→22:08)
[2020-11-02 00:26] LABS: BACTERIA,URINE NEGATIVE /HPF; SQUAMOUS EPITHELIAL CELL,UR 0-2 /HPF
[2020-11-02 00:29] LABS: FIBRIN DEGRADATION PRODUCTS 1.35 UG/ML (0.00-0.49); PROTHROMBIN TIME PATIENT 13.2 SEC (12.2-14.7)
[2020-11-02] MEDS ORDERED: NS IV 1000 ML 1,000 ML ONE (02:15)
[2020-11-02] MEDS: KETOROLAC 15 MG/ML VIAL IVP PRN ×2 (02:39→11:32)
[2020-11-02] MEDS: NS IV 1000 ML 1,000 ML IV SCH ×3 (02:41→19:50)
[2020-11-02] MEDS ORDERED: ACETAMINOPHEN 500 MG TAB (TYLENOL) PO PRN (02:45)
[2020-11-02] MEDS ORDERED: ONDANSETRON 4 MG/2 ML (SDV) Z0FRAN IV PRN (02:45)
[2020-11-02] MEDS ORDERED: RT-ALBUTEROL INHALER HFA (VENTOLIN HFA) 18 GM IH PRN (04:15)
--- NOTE | 2020-11-02 06:52 | Diagnostic Imaging Report ---
Indication: Sepsis Comparison: 09/14/2018 Findings: Single view of the chest demonstrates new bilateral pulmonary infiltrates. The heart is prominent. There is no pneumothorax or large effusion. Osseous structures are stable. Impression: New bilateral pulmonary infiltrates. Dictated by: Dictated on workstation # [id number]
[2020-11-02] MEDS ORDERED: NS IV 500 ML 500 ML IV SCH (08:30)
[2020-11-02] MEDS ORDERED: REMDESIVIR INJ 200 MG in NS (IVPB) 210 ML IV ONE (08:30)
--- NOTE | 2020-11-02 08:40 | History & Physical-Hospitalist ---
History of Present Illness HPI/Chief Complaint Pt is a 65yoCM with a PMH of HLD, HTN, chronic pain, BPH who presented to the ER due to shortness of breath, weakness, malaise. He is unvaccinated against COVID. He reports his symptoms started about 5 days ago. His shortness of breath has been worsening over the last two days and he still feels "rough" this morning. He continues to cough. He was found to be hypoxic and tested positive for COVID. He was admitted for further care. Source: patient Date Seen 11/02/20 Time Seen by a Provider: 08:40 Attending Physician Sania Solorio MD PCP Pallavi Gu Aprn Referring Physician Date of Admission Nov 02, 2020 at 01:34 Home Medications & Allergies Home Medications Reviewed patient Home Medication Reconciliation performed by pharmacy medication reconciliations prepress technician and/or nursing. Patients Allergies have been reviewed. Allergies Allergies Coded Allergies hydromorphone HCl (Unverified Allergy, Intermediate, ITCHING, HAS RECEIVED HYDROCODONE IN THE PAST, 11/16/15) fentanyl (Unverified Allergy, Mild, 12/30/08) nalbuphine (Unverified Allergy, Mild, RECEIVED MORPHINE IN OR, 11/16/15) Past Zppndzo-Sxhehh-Pkvtto Hx Patient Social History Tobacco Use?: No Smoking Status: Never a Smoker Substance use?: No Alcohol Use?: No Pt feels they are or have been: No Immunizations Up To Date Date of Influenza Vaccine: Apr 12, 2013 Tetanus Booster (TDap): Unknown Date of Pneumonia Vaccine: Apr 24, 2016 Seasonal Allergies Seasonal Allergies: No Current Status Communicates: Verbally Primary Language: Zambian Preferred Spoken Language: Zambian Is interpretation needed?: No Past Medical History Surgeries: Gallbladder, Joint Replacement, Orthopedic Sleep Apnea Currently Using CPAP: Yes High Cholesterol, Hypertension Degenerate Disk Disease, Back Injury, Chronic Back Pain Blood Disorders: No Adverse Reaction/Blood Tranf: No Family Medical History Reviewed Nursing Family Hx Unknown family medical history No Pertinent Family Hx Review of Systems Constitutional: chills, fever, malaise, weakness EENTM: no symptoms reported Respiratory: cough, short of breath Cardiovascular: No chest pain, No edema Gastrointestinal: abdominal pain, diarrhea, loss of appetite; No nausea, No vomiting Genitourinary: no symptoms reported Musculoskeletal: muscle pain, muscle cramps, muscle weakness Skin: no symptoms reported Psychiatric/Neurological: No Symptoms Reported Physical Exam Physical Exam Vital Signs Vital Signs - First Documented 11/01/20 11/02/20 23:55 00:20 Temp 38.9 Pulse 80 Resp 24 B/P (MAP) 154/89 (110) Pulse Ox 95 O2 Delivery Nasal Cannula O2 Flow Rate 3.00 Capillary Refill : Height, Weight, BMI Height: 6'2.00" Weight: 274lbs. 0.0oz. 124.742303ls; 32.74 BMI Method:Stated General Appearance: No Apparent Distress, WD/WN HEENT: PERRL/EOMI, Moist Mucous Membranes; No Scleral Icterus (L), No Scleral Icterus (R) Neck: Normal Inspection, Supple Respiratory: Lungs Clear, No Accessory Muscle Use, No Respiratory Distress Cardiovascular: Regular Rate, Rhythm, No Murmur Gastrointestinal: Normal Bowel Sounds, Non Tender, Soft Neurologic/Psychiatric: Alert, Oriented x3, Normal Mood/Affect Results Results/Procedures Labs Laboratory Tests 11/01/20 23:45 Patient resulted labs reviewed. Imaging: Reviewed Imaging Report Assessment/Plan Admission Diagnosis Acute hypoxic respiratory failure due to COVDI19 Admission Status: Inpatient Order (span 2 midnights) Reason for Inpatient Admission: see below Assessment and Plan Acute hypoxic respiratory failure due to COVDI19 5 days since symptoms onset Consented to Remdesivir and convalescent plasma- ordered Continue decadron Discussed natural course with patient and anticipate he may get worse before he gets better TelePulm consulted, discussed with Dr Michelle Dodson IS MAT protocol HTN HLD Continue home meds when med rec done Chronic pain Continue home meds BMI 32 No acute needs, clinically significant DVT ppx: FLORIAN Swann MD Nov 02, 2020 08:40
[2020-11-02] MEDS ORDERED: FURO40TA4 PO (10:46)
[2020-11-02] MEDS ORDERED: LOSA50TA63 PO (10:46)
[2020-11-02] MEDS ORDERED: GBPN600T PO (10:46)
[2020-11-02] MEDS ORDERED: ROPI2TAB6 PO (10:46)
[2020-11-02] MEDS ORDERED: CHOL20002 PO (10:46)
[2020-11-02] MEDS ORDERED: CALC500T64 PO (10:46)
[2020-11-02] MEDS ORDERED: PRD20T PO (10:46)
--- NOTE | 2020-11-02 12:03 | Pulmonary Consultation ---
History of Present Illness History of Present Illness Date Seen by Provider: Nov 02, 2020 Time Seen by Provider: 11:58 History of Present Illness Pulm Consult 65 M admitted to MICU for COVID PNA, Sx started about 5 d ago,on 3 lpm NC with SpO2, Started on remdesivir, decadron, and to get convalescent plasma Not having increased WOB, CXR shows new mild infiltrates with increased HS Did not get COVID vaccine, Not working hard to breath, spont RR 22-24 Has LIANA, uses CPAP Allergies and Home Medications Allergies Coded Allergies: hydromorphone HCl (Unverified Allergy, Intermediate, ITCHING, HAS RECEIVED HYDROCODONE IN THE PAST, 11/16/15) fentanyl (Unverified Allergy, Mild, 12/30/08) nalbuphine (Unverified Allergy, Mild, RECEIVED MORPHINE IN OR, 11/16/15) Home Medications Amlodipine Besylate 5 Mg Tablet, 5 MG PO DAILY, (Reported) Aspirin 81 Mg Tablet.dr, 81 MG PO DAILY, (Reported) Calcium Carbonate 500 Mg Tablet, 500 MG PO BID, (Reported) Cholecalciferol (Vitamin D3) 50 Mcg Capsule, 50 MCG PO BID, (Reported) Cyclobenzaprine HCl 10 Mg Tablet, 10 MG PO HS, (Reported) Finasteride 5 Mg Tablet, 5 MG PO DAILY, (Reported) Furosemide 40 Mg Tablet, 40 MG PO DAILY, (Reported) Gabapentin 600 Mg Tablet, 600 MG PO 0700,1200, (Reported) Gabapentin 600 Mg Tablet, 1,200 MG PO HS, (Reported) TAKES 2 (600MG) TABS Levocetirizine Dihydrochloride 5 Mg Tablet, 5 MG PO HS, (Reported) Losartan Potassium 50 Mg Tablet, 50 MG PO DAILY, (Reported) Melatonin 10 Mg Capsule, 10 MG PO HS, (Reported) Metaxalone 800 Mg Tablet, 800 MG PO BID, (Reported) Mv,Minerals/FA/Lycopene/Ginkgo 1 Each Tablet, 1 TAB PO DAILY, (Reported) Nebivolol HCl 10 Mg Tab, 10 MG PO HS, (Reported) [place] 3 Polyunsat Fatty Acids 1,000 Mg Cap, 1,000 MG PO DAILY, (Reported) Potassium Chloride 10 Meq Capsule.er, 10 MEQ PO BID, (Reported) LAST FILLED 08-06-2020 #60/30 DAY SUPPLY Prednisone 20 Mg Tab, 20 MG PO DAILY, (Reported) Ropinirole HCl 2 Mg Tablet, 2 MG PO HS, (Reported) Rosuvastatin Calcium 10 Mg Tablet, 10 MG PO HS, (Reported) Tamsulosin HCl 0.4 Mg Cap, 0.4 MG PO DAILY, (Reported) Tramadol HCl 50 Mg Tablet, 50 MG PO QID PRN for PAIN-MODERATE (5-7), (Reported) Past Medical/Social/Family Hx Patient Social History Tobacco Use?: No Smoking Status: Never a Smoker Substance use?: No Alcohol Use?: No Pt stated abuse/neglect: No Immunizations Up To Date Tetanus Booster (TDap): Unknown Date of Pneumonia Vaccine: Apr 24, 2016 Current Status Communicates: Verbally Primary Language: Romanian Preferred Spoken Language: Romanian Is interpretation needed?: No Implanted or Applied Medical D: CPAP Past Medical History BPH, HTN, chronic back pain, HLD, LIANA on CPAP Review of Systems Constitutional: no symptoms reported Respiratory: see HPI Cardiovascular: no symptoms reported Sepsis Event Evaluation Height, Weight, BMI Height: 6'2.00" Weight: 274lbs. 0.0oz. 124.026914xj; 32.74 BMI Method:Stated Exam Exam Patient acknowledged, consented, and participated in this virtual visit which was conducted using real time audio/video Vital Signs Date Time Temp Pulse Resp B/P (MAP) Pulse Ox O2 Delivery O2 Flow Rate FiO2 11/02/20 11:29 36.1 80 18 149/82 (104) 96 Nasal Cannula 0.50 11/02/20 09:54 95 Nasal Cannula 0.50 11/02/20 08:02 96 Nasal Cannula 1.00 11/02/20 07:56 36.0 80 140/84 (102) 97 Nasal Cannula 2.00 11/02/20 06:47 98 Nasal Cannula 2.00 11/02/20 04:03 38.9 80 95 11/02/20 04:00 132/80 (97) 94 Nasal Cannula 2.00 11/02/20 02:18 36.9 75 18 136/82 (100) 95 Nasal Cannula 2.00 11/02/20 02:05 76 18 127/76 (110) 95 Nasal Cannula 3.00 11/02/20 00:20 Nasal Cannula 3.00 11/01/20 23:55 38.9 80 24 154/89 (110) 95 I & O 11/02/20 07:00 Intake Total 1150 ml Output Total 300 ml Balance 850 ml Height & Weight Height: 6'2.00" Weight: 274lbs. 0.0oz. 124.311835cs; 32.74 BMI Method:Stated General Appearance: No Apparent Distress, WD/WN HEENT: PERRL/EOMI, Moist Mucous Membranes; No Scleral Icterus (L), No Scleral Icterus (R) Neck: Normal Inspection, Supple Respiratory: Lungs Clear, No Accessory Muscle Use, No Respiratory Distress, Other (not working hard to breathe) Cardiovascular: Regular Rate, Rhythm, No Murmur Gastrointestinal: normal bowel sounds, non tender, soft Neurologic/Psychiatric: Alert, Oriented x3, Normal Mood/Affect Results Lab Laboratory Tests 11/01/20 23:45 Assessment/Plan Assessment/Plan Mild Sx but needs to be watched for worsening oxygenation, will continue present meds for DARRELL HIGH MD Nov 02, 2020 12:03
[2020-11-02] MEDS: KCL 10 MEQ TAB (MICRO K) PO SCH (17:44)
[2020-11-02] MEDS: ENOXAPARIN 40 MG/0.4 ML (LOVENOX) SYR SQ SCH (19:48)
[2020-11-02] MEDS: rOPINIRole 1 MG (REQUIP) TABLET PO SCH (19:49)
[2020-11-02] MEDS: ROSUVASTATIN 10 MG (CRESTOR) TABLET PO SCH (19:49)
[2020-11-02] MEDS: GABAPENTIN 600 MG (NEURONTIN) TAB PO SCH (19:49)
[2020-11-02] MEDS: LORATADINE (CLARITIN) 10 MG TAB PO SCH (19:49)
[2020-11-02] MEDS: MELATONIN 10 MG TABLET PO SCH (19:49)
[2020-11-02] MEDS: CYCLOBENZAPRINE 10 MG (FLEXERIL) TAB PO SCH (19:50)
[2020-11-02] MEDS ORDERED: METAXALONE 800 MG PO SCH (21:00)
[2020-11-02] MEDS ORDERED: LEVOCETIRIZINE 5 MG TAB (XYZAL) NON-FORMULARY PO SCH (21:00)
[2020-11-02] MEDS ORDERED: NON-FORMULARY MEDICATION 1 EA EA (Potassium Chloride 10 MEQ) PO SCH (21:00)
[2020-11-02] MEDS ORDERED: NON-FORMULARY MEDICATION 1 EA EA (Nebivolol HCl (Bystolic) 10 MG) PO SCH (21:00)
[2020-11-02] MEDS ORDERED: NON-FORMULARY MEDICATION 1 EA EA (Ropinirole HCl 2 MG) PO SCH (21:00)
[2020-11-02] MEDS ORDERED: NON-FORMULARY MEDICATION 1 EA EA (Melatonin 10 MG) PO SCH (21:00)
[2020-11-02] MEDS ORDERED: RX-CYCLOBENZAPRINE 10 MG (FLEXERIL) TAB PPK#3 PO SCH (21:00)
[2020-11-03] VITALS: BP 139/88
[2020-11-03] MEDS: RT-ALBUTEROL INHALER HFA (VENTOLIN HFA) 18 GM IH SCH ×6 (02:12→21:27)
[2020-11-03 04:00] VITALS: BP 128/81
[2020-11-03 04:52] LABS: HEMATOCRIT 39 % (40-54); HEMOGLOBIN 12.6 g/dL (13.3-17.7); MEAN CORPUSCULAR HEMOGLOBIN 27 pg (25-34); MEAN CORPUSCULAR HGB CONC 32 g/dL (32-36); MEAN CORPUSCULAR VOLUME 83 fL (80-99); PLATELET COUNT 274 10^3/uL (130-400); WHITE BLOOD COUNT 4.8 10^3/uL (4.3-11.0)
[2020-11-03 04:58] LABS: ALBUMIN 3.2 GM/DL (3.2-4.5); CHLORIDE 112 MMOL/L (98-107); POTASSIUM 4.7 MMOL/L (3.6-5.0); SODIUM 142 MMOL/L (135-145)
[2020-11-03 04:59] LABS: CALCIUM 8.1 MG/DL (8.5-10.1)
[2020-11-03 05:01] LABS: GLUCOSE 137 MG/DL (70-105); TOTAL PROTEIN 6.3 GM/DL (6.4-8.2)
[2020-11-03 05:02] LABS: BILIRUBIN,TOTAL 0.5 MG/DL (0.1-1.0); CARBON DIOXIDE 20 MMOL/L (21-32)
[2020-11-03 05:04] LABS: ALKALINE PHOSPHATASE 52 U/L (40-136); CREATININE SERUM 0.75 MG/DL (0.60-1.30); GFR ESTIMATED > 60
[2020-11-03 05:05] LABS: BUN/CREATININE RATIO 23
[2020-11-03 05:07] LABS: ALANINE AMINOTRANSFERASE 30 U/L (0-55)
[2020-11-03] MEDS: GABAPENTIN 600 MG (NEURONTIN) TAB PO SCH ×3 (06:10→20:03)
[2020-11-03] MEDS: NS IV 1000 ML 1,000 ML IV SCH ×2 (06:11→17:34)
--- NOTE | 2020-11-03 07:12 | Progress Note - Hospitalist ---
Subjective HPI/CC On Admission Date Seen by Provider: Nov 03, 2020 Time Seen by Provider: 07:08 Pt is a 65yoCM with a PMH of HLD, HTN, chronic pain, BPH who presented to the ER due to shortness of breath, weakness, malaise. He is unvaccinated against COVID. He reports his symptoms started about 5 days ago. His shortness of breath has been worsening over the last two days and he still feels "rough" this morning. He continues to cough. He was found to be hypoxic and tested positive for COVID. He was admitted for further care. Subjective/Events-last exam Pt reports feeling ok but still "rough." slightly better than yesterday. Has some mild chest "discomfort." Focused Exam Lactate Level 11/01/20 23:45: Lactic Acid Level 1.31 Objective Exam Vital Signs Vital Signs Date Time Temp Pulse Resp B/P (MAP) Pulse Ox O2 Delivery O2 Flow Rate FiO2 11/03/20 06:51 95 Nasal Cannula 2.00 11/03/20 04:00 128/81 (97) 11/03/20 00:00 36.0 62 18 Capillary Refill : General Appearance: No Apparent Distress, Chronically ill Respiratory: No Accessory Muscle Use; No Crackles; Decreased Breath Sounds, Other (on 2lpm NC) Cardiovascular: Regular Rate, Rhythm, No Murmur Gastrointestinal: Normal Bowel Sounds, Non Tender, Soft Extremity: No Calf Tenderness, No Pedal Edema Neurologic/Psychiatric: Alert, Oriented x3 Results/Procedures Lab Laboratory Tests 11/03/20 04:25 Patient resulted labs reviewed. Imaging: Reviewed Imaging Report Assessment/Plan Assessment and Plan Assess & Plan/Chief Complaint Acute hypoxic respiratory failure due to COVDI19 Chest discomfort Symptom onset about 10/27 Consented to Remdesivir and convalescent plasma- ordered, awaiting arrival of Continue decadron Discussed natural course with patient and anticipate he may get worse before he gets better, he expresses understanding again today TelePulm consulted, appreciate recs Lovenox IS MAT protocol Chest symptoms likely due to COVID but will check EKG and troponin, continue on tele HTN HLD Continue home meds Chronic pain Continue home meds BMI 32 No acute needs, clinically significant DVT ppx: LailanoFLORIAN Brasher MD Nov 03, 2020 07:12
[2020-11-03 07:52] VITALS: BP 137/87
[2020-11-03] MEDS: KCL 10 MEQ TAB (MICRO K) PO SCH ×2 (07:59→17:33)
[2020-11-03] MEDS: ASPIRIN E.C. 81 MG (ECOTRIN) TAB PO SCH (07:59)
[2020-11-03] MEDS: FUROSEMIDE 40 MG (LASIX) TAB PO SCH (08:00)
[2020-11-03] MEDS: FINASTERIDE (PROSCAR) 5 MG TAB PO SCH (08:00)
[2020-11-03] MEDS: TAMSULOSIN 0.4 MG (FLOMAX) CAP PO SCH (08:00)
[2020-11-03] MEDS: LOSARTAN 50 MG (COZAAR) TAB PO SCH (08:00)
[2020-11-03] MEDS: amLODIPine 5 MG (NORVASC) TAB PO SCH (08:00)
[2020-11-03] MEDS: REMDESIVIR INJ 100 MG in NS (IVPB) 230 ML IV SCH (08:45)
--- NOTE | 2020-11-03 10:04 | Pulmonary Progress Note ---
Subjective Date Seen by a Provider: Nov 03, 2020 Time Seen by a Provider: 09:59 Subjective/Events-last exam Patient today states that he is feeling somewhat better. He is currently on 2 L nasal cannula. Oxygen saturation is 94%. He was on a CPAP as he used to be on a CPAP at night at home. Currently switch her back to oxygen via nasal cannula. He has occasional dry cough. No fever present. Appetite is good. I have reviewed with the LEAN SPECIALIST Olga and also made a video visit and discussed with the patient. I have reviewed his x-rays and labs Sepsis Event Evaluation Height, Weight, BMI Height: 6'2.00" Weight: 274lbs. 0.0oz. 124.945140nh; 32.74 BMI Method:Stated Focused Exam Lactate Level 11/01/20 23:45: Lactic Acid Level 1.31 Exam Exam Patient acknowledged, consented, and participated in this virtual visit which was conducted using real time audio/video Vital Signs Date Time Temp Pulse Resp B/P (MAP) Pulse Ox O2 Delivery O2 Flow Rate FiO2 11/03/20 08:05 96 Nasal Cannula 2.00 11/03/20 07:52 36.0 62 20 137/87 (104) 94 Nasal Cannula 2.00 11/03/20 06:51 95 Nasal Cannula 2.00 11/03/20 04:00 128/81 (97) 94 Nasal Cannula 2.00 11/03/20 02:12 96 Nasal Cannula 2.00 11/03/20 00:00 36.0 62 18 95 Nasal Cannula 2.00 11/03/20 00:00 139/88 (105) Room Air 11/02/20 22:09 95 Room Air 11/02/20 20:00 36.0 67 20 157/91 (113) 98 Room Air 11/02/20 20:00 97 Nasal Cannula 2.00 11/02/20 18:29 97 Room Air 11/02/20 16:00 35.8 86 18 150/79 (102) 96 Room Air 11/02/20 14:57 Room Air 11/02/20 14:50 96 Room Air 11/02/20 11:29 36.1 80 18 149/82 (104) 96 Nasal Cannula 0.50 I & O 11/03/20 07:00 Intake Total 3600 ml Output Total 2150 ml Balance 1450 ml Height & Weight Height: 6'2.00" Weight: 274lbs. 0.0oz. 124.639002ry; 32.74 BMI Method:Stated General Appearance: No Apparent Distress HEENT: PERRL/EOMI, Moist Mucous Membranes; No Scleral Icterus (L), No Scleral Icterus (R) Neck: Normal Inspection, Supple Respiratory: No Accessory Muscle Use; No Crackles; Decreased Breath Sounds, Other (on 2lpm NC) Cardiovascular: Regular Rate, Rhythm, No Murmur Gastrointestinal: normal bowel sounds, non tender, soft Extremity: No Calf Tenderness, No Pedal Edema Neurologic/Psychiatric: Alert, Oriented x3 Results Lab Laboratory Tests 11/01/20 23:45 11/03/20 04:25 Assessment/Plan Assessment/Plan 1. Acute Covid viral pneumonia. 2. Hypoxic respiratory failure 3. History of sleep apnea. Recommendations 1. We will continue IV Decadron 2. Remdesivir as ordered 3. Convalescent plasma is ordered and awaiting to be arrived. 4. DVT prophylaxis 5. Continue symptomatic treatment and monitor for oxygenation abnormalities. Reviewed with the LEAN SPECIALIST. Time spent with patient (mins): 30 JENNIFER GROVER MD Nov 03, 2020 10:04
[2020-11-03 12:57] VITALS: BP 131/83
[2020-11-03 16:01] VITALS: BP 132/78
[2020-11-03 19:57] VITALS: BP 138/85
[2020-11-03] MEDS: ROSUVASTATIN 10 MG (CRESTOR) TABLET PO SCH (20:03)
[2020-11-03] MEDS: CYCLOBENZAPRINE 10 MG (FLEXERIL) TAB PO SCH (20:03)
[2020-11-03] MEDS: ENOXAPARIN 40 MG/0.4 ML (LOVENOX) SYR SQ SCH (20:03)
[2020-11-03] MEDS: MELATONIN 10 MG TABLET PO SCH (20:03)
[2020-11-03] MEDS: LORATADINE (CLARITIN) 10 MG TAB PO SCH (20:03)
[2020-11-03] MEDS: rOPINIRole 1 MG (REQUIP) TABLET PO SCH (20:03)
[2020-11-04 00:01] VITALS: BP 144/90
[2020-11-04] MEDS: RT-ALBUTEROL INHALER HFA (VENTOLIN HFA) 18 GM IH SCH ×5 (02:20→22:00)
[2020-11-04] MEDS: NS IV 1000 ML 1,000 ML IV SCH ×2 (03:47→14:16)
[2020-11-04 04:06] LABS: ALBUMIN 3.3 GM/DL (3.2-4.5); CHLORIDE 111 MMOL/L (98-107); POTASSIUM 4.2 MMOL/L (3.6-5.0); SODIUM 144 MMOL/L (135-145)
[2020-11-04 04:07] LABS: CALCIUM 8.2 MG/DL (8.5-10.1)
[2020-11-04 04:08] LABS: GLUCOSE 134 MG/DL (70-105)
[2020-11-04 04:09] LABS: TOTAL PROTEIN 6.3 GM/DL (6.4-8.2)
[2020-11-04 04:10] LABS: BILIRUBIN,TOTAL 0.5 MG/DL (0.1-1.0); CARBON DIOXIDE 20 MMOL/L (21-32)
[2020-11-04 04:12] LABS: ALKALINE PHOSPHATASE 53 U/L (40-136); CREATININE SERUM 0.77 MG/DL (0.60-1.30); GFR ESTIMATED > 60
[2020-11-04 04:13] LABS: BUN/CREATININE RATIO 21
[2020-11-04 04:15] LABS: ALANINE AMINOTRANSFERASE 28 U/L (0-55)
[2020-11-04] MEDS: GABAPENTIN 600 MG (NEURONTIN) TAB PO SCH ×3 (06:02→20:27)
[2020-11-04 07:45] VITALS: BP 155/95
[2020-11-04] MEDS: FINASTERIDE (PROSCAR) 5 MG TAB PO SCH (08:29)
[2020-11-04] MEDS: ASPIRIN E.C. 81 MG (ECOTRIN) TAB PO SCH (08:29)
[2020-11-04] MEDS: amLODIPine 5 MG (NORVASC) TAB PO SCH (08:29)
[2020-11-04] MEDS: FUROSEMIDE 40 MG (LASIX) TAB PO SCH (08:29)
[2020-11-04] MEDS: REMDESIVIR INJ 100 MG in NS (IVPB) 230 ML IV SCH (08:29)
[2020-11-04] MEDS: LOSARTAN 50 MG (COZAAR) TAB PO SCH (08:30)
[2020-11-04] MEDS: KCL 10 MEQ TAB (MICRO K) PO SCH ×2 (08:30→16:28)
[2020-11-04] MEDS: TAMSULOSIN 0.4 MG (FLOMAX) CAP PO SCH (08:30)
--- NOTE | 2020-11-04 08:37 | Progress Note - Hospitalist ---
Subjective HPI/CC On Admission Date Seen by Provider: Nov 04, 2020 Time Seen by Provider: 08:35 Pt is a 65yoCM with a PMH of HLD, HTN, chronic pain, BPH who presented to the ER due to shortness of breath, weakness, malaise. He is unvaccinated against COVID. He reports his symptoms started about 5 days ago. His shortness of breath has been worsening over the last two days and he still feels "rough" this morning. He continues to cough. He was found to be hypoxic and tested positive for COVID. He was admitted for further care. Subjective/Events-last exam Pt repors feeling ok. Not much better or worse but chest pain seems worse today. Describes as central chest pain. Focused Exam Lactate Level 11/01/20 23:45: Lactic Acid Level 1.31 Objective Exam Vital Signs Vital Signs Date Time Temp Pulse Resp B/P (MAP) Pulse Ox O2 Delivery O2 Flow Rate FiO2 11/04/20 07:45 35.8 64 18 155/95 (115) 97 Nasal Cannula 1.00 Capillary Refill : General Appearance: No Apparent Distress, WD/WN Respiratory: Chest Non Tender, Lungs Clear, No Respiratory Distress Cardiovascular: Regular Rate, Rhythm, No Murmur Neurologic/Psychiatric: Alert, Oriented x3 Results/Procedures Lab Laboratory Tests 11/04/20 03:33 Patient resulted labs reviewed. Imaging: Reviewed Imaging Report Assessment/Plan Assessment and Plan Assess & Plan/Chief Complaint Acute hypoxic respiratory failure due to COVDI19 Chest discomfort Symptom onset about 77 Consented to Remdesivir and convalescent plasma- ordered, awaiting arrival of still- will call blood bank today to assess status Continue decadron TelePulm consulted, appreciate recs [place] IS MAT protocol Chest pain Troponin and EKG normal yesterday Repeat today Discussed with Dr Robert who will see in consultation HTN HLD Continue home meds Chronic pain Continue home meds BMI 32 No acute needs, clinically significant DVT ppx: FLORIAN Swann MD Nov 04, 2020 08:37
[2020-11-04 12:00] VITALS: BP 133/79
[2020-11-04 15:51] VITALS: BP 146/79
--- NOTE | 2020-11-04 16:20 | Consultation-Cardiology ---
HPI-Cardiology Cardiology Consultation: Date of Consultation 11/04/20 Date of Admission Attending Physician Polina Ramon MD Admitting Physician Pallavi Gu Aprn Consulting Physician DUONG REN JR, MD HPI: Time Seen by a Provider: 14:45 Chief Complaint: Reason for consultation: Chest pain. I had the pleasure of seeing Duong on the medical/surgical unit today. He was admitted to the hospital 2 days ago after he presented to the emergency room wi th a several day history of cough and shortness of breath. On the day of admission, he tells me he was also lightheaded and somewhat confused. His urged him to come to the emergency room for further evaluation. At that time he was diagnosed with Covid and admitted to the intensive care unit. He states that since having the cough, every time he takes a deep breath he feels a discomfort in the left and right side of his chest at the sternal margin. If he take shallow breaths he does not have any chest discomfort. This chest discomfort has persisted for the 2 days that he has been in the hospital. As such, a cardiology consultation was requested. He does state that he had cardiomyopathy in the past and was treated for this and improved. He was pre viously being seen in our office but has not been seen in several years. Prior to developing Covid, he denied any chest discomfort. Prior to this hospitalization he did not report any significant dyspnea, paroxysmal nocturnal dyspnea, orthopnea, palpitations, lightheadedness, syncope, or lower extremity edema. Review of Systems-Cardiology Review of Systems Other comments Review of 10 organ systems is as per the history of present illness, otherwise negative. All Other Systems Reviewed Negative Unless Noted: Yes [id number]-[id number]-Pcaomo Hx Patient Social History Marrital Status: Smoking Status: Never a Smoker Have you traveled recently?: No Alcohol Use?: No Pt feels they are or have been: No Immunizations Up To Date Tetanus Booster (TDap): Unknown Date of Pneumonia Vaccine: Apr 24, 2016 Date of Influenza Vaccine: Apr 12, 2013 Past Medical History PMH As described under Assessment. Family Medical History Family History: Unknown family medical history Allergies and Home Medications Allergies Coded Allergies: hydromorphone HCl (Unverified Allergy, Intermediate, ITCHING, HAS RECEIVED HYDROCODONE IN THE PAST, 11/16/15) fentanyl (Unverified Allergy, Mild, 12/30/08) nalbuphine (Unverified Allergy, Mild, RECEIVED MORPHINE IN OR, 11/16/15) Home Medications Amlodipine Besylate 5 Mg Tablet, 5 MG PO DAILY, (Reported) Last Action: Continued Aspirin 81 Mg Tablet.dr, 81 MG PO DAILY, (Reported) Last Action: Continued Calcium Carbonate 500 Mg Tablet, 500 MG PO BID, (Reported) Last Action: Held Cholecalciferol (Vitamin D3) 50 Mcg Capsule, 50 MCG PO BID, (Reported) Last Action: Held Cyclobenzaprine HCl 10 Mg Tablet, 10 MG PO HS, (Reported) Last Action: Continued Finasteride 5 Mg Tablet, 5 MG PO DAILY, (Reported) Last Action: Continued Furosemide 40 Mg Tablet, 40 MG PO DAILY, (Reported) Last Action: Continued Gabapentin 600 Mg Tablet, 600 MG PO 0700,1200, (Reported) Last Action: Continued Gabapentin 600 Mg Tablet, 1,200 MG PO HS, (Reported) TAKES 2 (600MG) TABS Last Action: Continued Levocetirizine Dihydrochloride 5 Mg Tablet, 5 MG PO HS, (Reported) Last Action: Continued Losartan Potassium 50 Mg Tablet, 50 MG PO DAILY, (Reported) Last Action: Continued Melatonin 10 Mg Capsule, 10 MG PO HS, (Reported) Last Action: Converted Metaxalone 800 Mg Tablet, 800 MG PO BID, (Reported) Last Action: Continued Mv,Minerals/FA/Lycopene/Ginkgo 1 Each Tablet, 1 TAB PO DAILY, (Reported) Last Action: Held Nebivolol HCl 10 Mg Tab, 10 MG PO HS, (Reported) Last Action: Converted [place] 3 Polyunsat Fatty Acids 1,000 Mg Cap, 1,000 MG PO DAILY, (Reported) Last Action: Held Potassium Chloride 10 Meq Capsule.er, 10 MEQ PO BID, (Reported) LAST FILLED 08-06-2020 #60/30 DAY SUPPLY Last Action: Converted Prednisone 20 Mg Tab, 20 MG PO DAILY, (Reported) Last Action: Held Ropinirole HCl 2 Mg Tablet, 2 MG PO HS, (Reported) Last Action: Converted Rosuvastatin Calcium 10 Mg Tablet, 10 MG PO HS, (Reported) Last Action: Continued Tamsulosin HCl 0.4 Mg Cap, 0.4 MG PO DAILY, (Reported) Last Action: Continued Tramadol HCl 50 Mg Tablet, 50 MG PO QID PRN for PAIN-MODERATE (5-7), (Reported) Last Action: Continued Patient Home Medication List Home Medication List Reviewed: Yes Exam Vital Signs Vital Signs Date Time Temp Pulse Resp B/P (MAP) Pulse Ox O2 Delivery O2 Flow Rate FiO2 11/04/20 15:51 36.2 64 20 146/79 (101) 93 Room Air 11/04/20 15:15 21 11/04/20 07:45 1.00 Physical Exam General: Alert. No acute distress. Well nourished and appears stated age. Eye: Extraocular movements are intact. Conjunctivae are clear. There are no xanthelasma. HENT: Normocephalic. Atraumatic. Carotid pulsations 2/2 without bruits. Neck: Jugular venous pressure does not appear elevated. No thyromegaly appreciated. Respiratory: Lungs have some scattered inspiratory wheezes. Respirations are non-labored. Breath sounds are equal. Symmetrical chest wall expansion. Cardiovascular: Normal rate. Regular rhythm. No murmur. No gallop. Point of maximal impulse is not appear displaced. Good pulses equal in all extremities. No edema. Gastrointestinal: Soft. Normal bowel sounds. Skin: Skin turgor is normal. There is no pallor. Musculoskeletal: No kyphosis or scoliosis appreciated. Neurologic: Alert and oriented to person, place, time. Cranial nerves 3-12 appear grossly intact. The patient has good motor tone strength in the upper and lower extremities bilaterally. Psychiatric: Cooperative. Appropriate mood & affect. Labs Laboratory Tests Test 11/04/20 03:30 11/04/20 03:33 Range/Units Troponin I < 0.028 <0.028 NG/ML Sodium Level 144 135-145 MMOL/L Potassium Level 4.2 3.6-5.0 MMOL/L Chloride Level 111 H 98-107 MMOL/L Carbon Dioxide Level 20 L 21-32 MMOL/L Anion Gap 13 5-14 MMOL/L Blood Urea Nitrogen 16 7-18 MG/DL Creatinine 0.77 0.60-1.30 MG/DL Estimat Glomerular Filtration Rate > 60 BUN/Creatinine Ratio 21 Glucose Level 134 H 70-105 MG/DL Calcium Level 8.2 L 8.5-10.1 MG/DL Corrected Calcium 8.8 8.5-10.1 MG/DL Total Bilirubin 0.5 0.1-1.0 MG/DL Aspartate Amino Transf (AST/SGOT) 24 5-34 U/L Alanine Aminotransferase (ALT/SGPT) 28 0-55 U/L Alkaline Phosphatase 53 40-136 U/L Total Protein 6.3 L 6.4-8.2 GM/DL Albumin 3.3 3.2-4.5 GM/DL Radiology CARDIAC CATHETERIZATION (09/14/2018): 1. Mild coronary artery disease, 40-50 percent proximal right coronary artery nonobstructive disease otherwise no significant obstructive disease 2. Normal left ventricular size and systolic function test and ejection fraction 60 percent 3. Normal aortic arch and great vessels of the neck ECG Impression ECG Comment Sinus rhythm with left atrial abnormality, otherwise unremarkable tracing. Diagnosis/Problems Diagnosis/Problems (1) Chest pain Assessment & Plan: He has no acute ST changes and 2 negative troponin levels despite almost constant chest discomfort over the past 2 days. I suspect this is related to a musculoskeletal disorder from coughing. Nonetheless, given his previous history of a cardiomyopathy, at some point he warrants noninvasive cardiac testing. Since this does not appear to be an acute cardiac syndrome, I recommend waiting until he is discharged home and after 2 weeks of quarantine, we can arrange for outpatient nuclear stress test and echocardiogram. He should continue on aspirin, beta-stefan, and statin medication. (2) Coronary artery disease without angina pectoris Assessment & Plan: As above, his current chest pain sounds more consistent with a musculoskeletal disorder as opposed to an acute coronary syndrome. I recommend he continue the present guideline directed medical therapy. Once he is discharged and recovers from Covid, we can have him undergo outpatient noninvasive cardiac testing. If his clinical status changes while he is here in the hospital, then we may need to consider further evaluation with a cardiac catheterization. Due to his Covid infection, we are trying to avoid excessive testing on these patients to decrease the amount of contact with hospital employees. (3) Cardiomyopathy Assessment & Plan: His most recent echocardiogram from August 2018 shows a normal ejection fraction. He should continue on the present combination of medications. We will plan to obtain another assessment of his ejection fraction at the time of his outpatient noninvasive cardiac testing. (4) Essential hypertension Assessment & Plan: His blood pressures are intermittently elevated. If this persists, we may need to make some adjustments to his antihypertensive medication. (5) Mixed hyperlipidemia Assessment & Plan: Continue statin medication. DUONG REN JR, MD Nov 04, 2020 16:20
[2020-11-04] MEDS: CYCLOBENZAPRINE 10 MG (FLEXERIL) TAB PO SCH (20:26)
[2020-11-04] MEDS: ROSUVASTATIN 10 MG (CRESTOR) TABLET PO SCH (20:26)
[2020-11-04] MEDS: MELATONIN 10 MG TABLET PO SCH (20:26)
[2020-11-04] MEDS: ENOXAPARIN 40 MG/0.4 ML (LOVENOX) SYR SQ SCH (20:27)
[2020-11-04] MEDS: LORATADINE (CLARITIN) 10 MG TAB PO SCH (20:27)
[2020-11-04] MEDS: rOPINIRole 1 MG (REQUIP) TABLET PO SCH (20:27)
[2020-11-04 23:19] VITALS: BP 144/86
[2020-11-05] MEDS: RT-ALBUTEROL INHALER HFA (VENTOLIN HFA) 18 GM IH SCH ×2 (02:00→06:55)
[2020-11-05 03:48] VITALS: BP 145/83
[2020-11-05] MEDS: GABAPENTIN 600 MG (NEURONTIN) TAB PO SCH ×2 (06:18→12:46)
[2020-11-05 08:00] VITALS: BP 157/91
[2020-11-05] MEDS: FUROSEMIDE 40 MG (LASIX) TAB PO SCH (09:28)
[2020-11-05] MEDS: TAMSULOSIN 0.4 MG (FLOMAX) CAP PO SCH (09:28)
[2020-11-05] MEDS: KCL 10 MEQ TAB (MICRO K) PO SCH (09:28)
[2020-11-05] MEDS: LOSARTAN 50 MG (COZAAR) TAB PO SCH (09:28)
[2020-11-05] MEDS: FINASTERIDE (PROSCAR) 5 MG TAB PO SCH (09:28)
[2020-11-05] MEDS: amLODIPine 5 MG (NORVASC) TAB PO SCH (09:28)
[2020-11-05] MEDS: ASPIRIN E.C. 81 MG (ECOTRIN) TAB PO SCH (09:28)
[2020-11-05] MEDS: REMDESIVIR INJ 100 MG in NS (IVPB) 230 ML IV SCH (09:50)
[2020-11-05 09:52] VITALS: BP 145/83
--- NOTE | 2020-11-05 10:05 | Cardiology Progress Note ---
Progress Note-Cardiology Events since last exam Date Seen by Provider: Nov 05, 2020 Time Seen by Provider: 10:00 Events since last exam We are seeing him for chest pain. He states his chest discomfort has resolved. His breathing is improved. He denies palpitations, syncope, or lower extremity edema. He wants to go home. Vitals Last set of Vitals Signs Vital Signs 11/04/20 11/05/20 11/05/20 11/05/20 11/05/20 07:45 02:00 03:48 06:56 09:52 Temp 36.2 Pulse 62 Resp 20 B/P (MAP) 145/83 (103) Pulse Ox 96 O2 Delivery Room Air O2 Flow Rate 1.00 FiO2 21 Exam Vital Signs Vital Signs Date Time Temp Pulse Resp B/P (MAP) Pulse Ox O2 Delivery O2 Flow Rate FiO2 11/05/20 09:52 36.2 62 96 11/05/20 06:56 Room Air 11/05/20 03:48 20 145/83 (103) 11/05/20 02:00 21 11/04/20 07:45 1.00 Physical Exam I did not examine the patient today due to his Covid status. Diagnosis/Problems Diagnosis/Problems (1) Chest pain Assessment & Plan: He has no acute ST changes and 2 negative troponin levels despite almost constant chest discomfort over the past 2 days. I suspect this is related to a musculoskeletal disorder from coughing. His chest discomfort has now resolved. We will have our office arrange for an outpatient nuclear stress test and echocardiogram in approximately 2 weeks after he completes his quarantine. He will then follow-up with Dr. Cassidy in our office in 3 weeks. At this time, cardiology will sign off. Please call if you have other questions or concerns. (2) Coronary artery disease without angina pectoris Assessment & Plan: As above, his current chest pain sounds more consistent with a musculoskeletal disorder as opposed to an acute coronary syndrome. I recommend he continue the present guideline directed medical therapy with aspirin, beta-stefan and statin medication. As above, our office will arrange for outpatient testing and follow-up. I have placed an order in the chart for the nurse to get this information into the patient's departure summary. (3) Cardiomyopathy Assessment & Plan: His most recent echocardiogram from August 2018 showed a normal ejection fraction. He should continue on the present combination of medications. We will plan to obtain another assessment of his ejection fraction at the time of his outpatient noninvasive cardiac testing as outlined above. (4) Essential hypertension Assessment & Plan: His blood pressures are intermittently elevated. If this persists, we may need to make some adjustments to his antihypertensive medication. (5) Mixed hyperlipidemia Assessment & Plan: Continue statin medication. DUONG REN JR, MD Nov 05, 2020 10:05
--- NOTE | 2020-11-05 12:34 | Discharge Inst-Simple/Standard ---
Discharge Inst-Standard Patient Instructions/Follow Up Plan of Care/Instructions/FU: Please continue to take your medications as written. Please follow up with your primary care doctor to follow up this hospital stay. Activity as Tolerated: Yes Discharge Diet: No Restrictions Return to The Hospital For: Chest pain, shortness of breath, fever, weakness, confusion, low oxygen saturation, if you feel you are getting worse. FLORIAN ANDERSON MD Nov 05, 2020 12:34
--- NOTE | 2020-11-05 12:37 | Discharge Summary ---
Diagnosis/Chief Complaint Date of Admission Nov 02, 2020 at 08:00 Date of Discharge Discharge Date: Nov 05, 2020 Admission Diagnosis Acute hypoxic respiratory failure due to COVDI19 Primary Care No,Local Physician Discharge Diagnosis (1) Chest pain Assessment & Plan: He has no acute ST changes and 2 negative troponin levels despite almost constant chest discomfort over the past 2 days. I suspect this is related to a musculoskeletal disorder from coughing. His chest discomfort has now resolved. We will have our office arrange for an outpatient nuclear stress test and echocardiogram in approximately 2 weeks after he completes his quarantine. He will then follow-up with Dr. Cassidy in our office in 3 weeks. At this time, cardiology will sign off. Please call if you have other questions or concerns. (2) Coronary artery disease without angina pectoris Assessment & Plan: As above, his current chest pain sounds more consistent with a musculoskeletal disorder as opposed to an acute coronary syndrome. I recommend he continue the present guideline directed medical therapy with aspirin, beta-stefan and statin medication. As above, our office will arrange for outpatient testing and follow-up. I have placed an order in the chart for the nurse to get this information into the patient's departure summary. (3) Cardiomyopathy Assessment & Plan: His most recent echocardiogram from August 2018 showed a normal ejection fraction. He should continue on the present combination of medications. We will plan to obtain another assessment of his ejection fraction at the time of his outpatient noninvasive cardiac testing as outlined above. (4) Essential hypertension Assessment & Plan: His blood pressures are intermittently elevated. If this persists, we may need to make some adjustments to his antihypertensive medication. (5) Mixed hyperlipidemia Assessment & Plan: Continue statin medication. Discharge Summary Discharge Physical Exam Allergies: Coded Allergies: hydromorphone HCl (Unverified Allergy, Intermediate, ITCHING, HAS RECEIVED HYDROCODONE IN THE PAST, 11/16/15) fentanyl (Unverified Allergy, Mild, 12/30/08) nalbuphine (Unverified Allergy, Mild, RECEIVED MORPHINE IN OR, 11/16/15) Vitals & I&Os Vital Signs Date Time Temp Pulse Resp B/P (MAP) Pulse Ox O2 Delivery O2 Flow Rate FiO2 11/05/20 11:13 60 92 11/05/20 09:52 36.2 11/05/20 08:00 20 157/91 (113) Room Air 11/05/20 02:00 21 11/04/20 07:45 1.00 General Appearance: No Apparent Distress, WD/WN Respiratory: No Respiratory Distress Cardiovascular: Regular Rate, Rhythm, No Murmur Neurologic/Psychiatric: Alert, Oriented x3 Hospital Course Patient was admitted with acute hypoxic respiratory failure due to COVID-19. He was treated with Decadron and Remdesivir. Convalescent plasma was ordered but due to national backorder did not receive it prior to discharge. He did well and was able to be titrated off of oxygen completely. He was discharged home in stable and improved condition to follow-up with his primary care provider. Labs (last 24 hrs) Microbiology 11/02/20 Blood Culture - Preliminary, Resulted No growth 11/02/20 Urine Culture - Final, Complete NO GROWTH Patient resulted labs reviewed. Imaging: Reviewed Imaging Report Discussion & Recommendations Discharge Planning: >30 minutes discharge planning Discharge Home Medications: Active Scripts Active Reported Furosemide 40 Mg Tablet 40 Mg PO DAILY Prednisone 20 Mg Tab 20 Mg PO DAILY Ropinirole HCl 2 Mg Tablet 2 Mg PO HS Losartan Potassium 50 Mg Tablet 50 Mg PO DAILY Gabapentin 600 Mg Tablet 1,200 Mg PO HS TAKES 2 (600MG) TABS Vitamin D3 (Cholecalciferol (Vitamin D3)) 50 Mcg Capsule 50 Mcg PO BID Calcium Carbonate 500 Mg Tablet 500 Mg PO BID Gabapentin 600 Mg Tablet 600 Mg PO 0700,1200 Aspirin EC (Aspirin) 81 Mg Tablet.dr 81 Mg PO DAILY Crestor (Rosuvastatin Calcium) 10 Mg Tablet 10 Mg PO HS Flomax (Tamsulosin HCl) 0.4 Mg Cap 0.4 Mg PO DAILY Melatonin 10 Mg Capsule 10 Mg PO HS Fish Oil 1,000 mg Capsule ([place] 3 Polyunsat Fatty Acids) 1,000 Mg Cap 1,000 Mg PO DAILY One Daily Men's 50+ Tablet (Mv,Minerals/FA/Lycopene/Ginkgo) 1 Each Tablet 1 Tab PO DAILY Bystolic (Nebivolol HCl) 10 Mg Tab 10 Mg PO HS Metaxalone 800 Mg Tablet 800 Mg PO BID Levocetirizine Dihydrochloride 5 Mg Tablet 5 Mg PO HS Amlodipine Besylate 5 Mg Tablet 5 Mg PO DAILY Potassium Chloride 10 Meq Capsule.er 10 Meq PO BID LAST FILLED 08-06-2020 #60/30 DAY SUPPLY Cyclobenzaprine HCl 10 Mg Tablet 10 Mg PO HS Tramadol HCl 50 Mg Tablet 50 Mg PO QID PRN Finasteride 5 Mg Tablet 5 Mg PO DAILY Instructions to patient/family Please see electronic discharge instructions given to patient. Copy Copies To 1: MATTHEW CEDENO KATELYN M MD Nov 05, 2020 12:37
[2020-11-05 14:20] VITALS: BP 145/83
== END 2020-11-05 14:20 | disposition home or self-care (01) | DRG 177 ==
LOC: EDUNIT# 23:17 → ER 23:19 → ICU 11-02 01:34 → OBSVTOIN 11-02 08:00 → 4TH 11-04 09:32
PROVIDERS: ADMIT Internal Medicine; ATTEND Family Medicine
PROC: XW033E5 Introduction of Remdesivir Anti-infective into Peripheral Vein, Percutaneous Approach, New Technology Group 5 (ICD-10-PCS; principal; 2020-11-02)
DX: U07.1 COVID-19 (principal); J12.82 Pneumonia due to coronavirus disease 2019; J96.01 Acute respiratory failure with hypoxia; I42.9 Cardiomyopathy, unspecified; I25.10 Atherosclerotic heart disease of native coronary artery without angina pectoris; I10 Essential (primary) hypertension; E78.00 Pure hypercholesterolemia, unspecified; E78.2 Mixed hyperlipidemia; G47.33 Obstructive sleep apnea (adult) (pediatric); N40.0 Benign prostatic hyperplasia without lower urinary tract symptoms; Z88.6 Allergy status to analgesic agent; Z79.82 Long term (current) use of aspirin; Z79.52 Long term (current) use of systemic steroids
CPT/HCPCS: 36415; 71045; 80053; 81000; 83605; 84145; 84484; 85025; 85027; 85379; 85610; 85730; 86900; 86901; 87040; 87088; 87636; 93005; 94640; 94664; 94761; G0378

== ENCOUNTER → 2021-01-27 | Outpatient (CLI) | payer OTHER ==
[~2021-01-27] MED LIST changes: +CALC500T64 PO; +CHOL20002 PO; +FURO40TA4 PO; +LOSA50TA63 PO; +PRD20T PO; +ROPI2TAB6 PO
== END ==
LOC: LABNPT 06:34
PROVIDERS: ATTEND Orthopaedic Surgery
DX: Z01.812 Encounter for preprocedural laboratory examination (principal); Z20.822 Contact with and (suspected) exposure to COVID-19
CPT/HCPCS: 87635

== ENCOUNTER 2021-02-17 10:54 | Outpatient (RCR) | payer OTHER ==
[~2021-02-17 10:54] MED LIST changes: +CYCL10TA25 PO; -CYCL10TA9 PO
== END 2021-04-14 14:49 | disposition home or self-care (01) ==
PROVIDERS: ATTEND Physician Assistant Medical
DX: Z98.890 Other specified postprocedural states (principal); Z96.611 Presence of right artificial shoulder joint

== ENCOUNTER 2021-06-28 19:11 | Observation (INO) | payer OTHER ==
[~2021-06-28] VITALS: Ht 188 cm; Wt 141.3 kg
[2021-06-28] MEDS ORDERED: NITROGLYCERIN 2% OINT 1 GM UNIT DOSE PACKET TOP STA (19:21)
[2021-06-28] MEDS ORDERED: ASPIRIN 81 MG CHEW (CHILDREN'S ASA) PO ONE (19:30)
[2021-06-28 19:37] LABS: BASOPHILS # (AUTO) 0.1 10^3/uL (0.0-0.1); BASOPHILS % (AUTO) 1 % (0-10); EOSINOPHILS # (AUTO) 0.3 10^3/uL (0.0-0.3); EOSINOPHILS % (AUTO) 3 % (0-10); HEMATOCRIT 40 % (40-54); HEMOGLOBIN 12.4 g/dL (13.3-17.7); LYMPHOCYTES # (AUTO) 1.9 10^3/uL (1.0-4.0); LYMPHOCYTES % (AUTO) 19 % (12-44); MEAN CORPUSCULAR HEMOGLOBIN 27 pg (25-34); MEAN CORPUSCULAR HGB CONC 31 g/dL (32-36); MEAN CORPUSCULAR VOLUME 86 fL (80-99); MEAN PLATELET VOLUME 9.5 fL (9.0-12.2); MONOCYTES % (AUTO) 10 % (0-12); NEUTROPHILS # (AUTO) 6.7 10^3/uL (1.8-7.8); NEUTROPHILS % (AUTO) 67 % (42-75); PLATELET COUNT 216 10^3/uL (130-400); WHITE BLOOD COUNT 10.1 10^3/uL (4.3-11.0)
--- NOTE | 2021-06-28 19:52 | ED Cardiac General ---
History of Present Illness General Chief Complaint: Chest Pain Stated Complaint: SOA - CHEST PAIN Nursing Triage Note: Pt arrives via POV from PCP in [place] for c/o chest pain et SOB; onset "four to five days ago." Pt reports gaining 30lbs over the last week. Reports hx of kidney failure, denies hx of CHF. 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 DENIES ANY CARDIAC HISTORY, ONLY HTN AND HIGH TRIGLYCERIDES, AND DENIES ANY PRIOR CARDIAC PROCEDURES ( ON REVIEW OF OLD RECORDS, PT HAD A CARDIAC CATH DONE HERE 08/[address] LUGO--WITH MILD CAD/NO INTERVENTION AT THAT TIME) TOOK 1 HYDROCODONE AT NOON--TAKES FOR CHRONIC BACK PAIN/GENERALIZED PAIN TOOK HIS REGULAR MORNING MEDICATIONS, NO OTHER MEDICATIONS TODAY STATES HE HAS BEEN ON PREDNISONE FOR A LONG TIME FOR HIS BACK PAIN, BUT HAS NOT HAD ANY FOR THE LAST FEW DAYS STATES HE INCREASED HIS LASIX FROM 40 MG A DAY TO 60 MG A DAY IN THE LAST FEW DAYS SYMPTOMS ARE NOT ANY DIFFERENT TODAY HAS NOT SOUGHT CARE UNTIL TODAY WENT TO HIS PCP, DR. RICCO MUÑIZ IN [place] TODAY, AND WAS TOLD TO GO TO [facility]--STATES HE WENT THERE AND "DIDN'T WANT TO WAIT", SO LEFT WITHOUT BEING SEEN AND DROVE HERE HAS NOT HAD COVID OR FLU VACCINES STATES HE HAD COVID LAST OCTOBER AND WAS HOSPITALIZED HERE FOR SEVERAL DAYS HAD AN APPOINTMENT LAST WEEK WITH DR. LUGO FOR THIS PROBLEM, BUT "MISSED IT" AND HAS NOT ATTEMPTED TO RESCHEDULE STATES HE HAS A NEW PT APPOINTMENT AT THIS MONDAY WITH NEUROLOGY/NEUROSURGEON FOR HIS CHRONIC BACK AND BILATERAL LEG PAIN. 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 RICCO MUÑIZ, [place] HAS SEEN DR. LUGO FOR CARDIOLOGY FOR "ENLARGED HEART" Allergies and Home Medications Allergies Coded Allergies: hydromorphone HCl (Unverified Allergy, Intermediate, ITCHING, HAS RECEIVED HYDROCODONE IN THE PAST, 11/16/15) fentanyl (Unverified Allergy, Mild, 12/30/08) nalbuphine (Unverified Allergy, Mild, RECEIVED MORPHINE IN OR, 11/16/15) LIV Inhibitors (Verified Allergy, Unknown, 06/28/21) Patient Home Medication List Home Medication List Reviewed: Yes Amlodipine Besylate (Amlodipine Besylate) 5 Mg Tablet, 5 MG PO DAILY, (Reported) Entered as Reported by: GABRIELLE SHELTON on 11/17/15 1052 Aspirin (Aspirin EC) 81 Mg Tablet.dr, 81 MG PO DAILY, (Reported) Entered as Reported by: ANIRUDH PHILIPPE on 09/14/18 0851 Calcium Carbonate (Calcium Carbonate) 500 Mg Tablet, 500 MG PO BID, (Reported) Entered as Reported by: STONE ROBIN on 11/02/20 1046 Cholecalciferol (Vitamin D3) (Vitamin D3) 50 Mcg Capsule, 50 MCG PO BID, (Reported) Entered as Reported by: STONE ROBIN on 11/02/20 1046 Cyclobenzaprine HCl (Cyclobenzaprine HCl) 10 Mg Tablet, 10 MG PO HS, (Reported) Entered as Reported by: GABRIELLE SHELTON on 11/17/15 1052 Finasteride (Finasteride) 5 Mg Tablet, 5 MG PO DAILY, (Reported) Entered as Reported by: GABRIELLE SHELTON on 11/17/15 1052 Furosemide (Furosemide) 40 Mg Tablet, 40 MG PO DAILY, (Reported) Entered as Reported by: STONE ROBIN on 11/02/20 1046 Gabapentin (Gabapentin) 600 Mg Tablet, 600 MG PO 0700,1200, (Reported) Entered as Reported by: ANIRUDH PHILIPPE on 09/14/18 0851 Gabapentin (Gabapentin) 600 Mg Tablet, 1,200 MG PO HS, (Reported) Entered as Reported by: STONE ROBIN on 11/02/20 1046 Levocetirizine Dihydrochloride (Levocetirizine Dihydrochloride) 5 Mg Tablet, 5 MG PO HS, (Reported) Entered as Reported by: GABRIELLE SHELTON on 11/17/15 1052 Losartan Potassium (Losartan Potassium) 50 Mg Tablet, 50 MG PO DAILY, (Reported) Entered as Reported by: STONE ROBIN on 11/02/20 1046 Melatonin (Melatonin) 10 Mg Capsule, 10 MG PO HS, (Reported) Entered as Reported by: ANIRUDH PHILIPPE on 09/14/18 0851 Metaxalone (Metaxalone) 800 Mg Tablet, 800 MG PO BID, (Reported) Entered as Reported by: GABRIELLE SHELTON on 11/17/15 1052 Mv,Minerals/FA/Lycopene/Ginkgo (One Daily Men's 50+ Tablet) 1 Each Tablet, 1 TAB PO DAILY, (Reported) Entered as Reported by: ANIRUDH PHILIPPE on 09/14/18 08 Nebivolol HCl (Bystolic) 10 Mg Tab, 10 MG PO HS, (Reported) Entered as Reported by: GABRIELLE SHELTON on 11/17/15 1052 [place] 3 Polyunsat Fatty Acids (Fish Oil 1,000 mg Capsule) 1,000 Mg Cap, 1,000 MG PO DAILY, (Reported) Entered as Reported by: ANIRUDH PHILIPPE on 09/14/18 08 Potassium Chloride (Potassium Chloride) 10 Meq Capsule.er, 10 MEQ PO BID, (Reported) Entered as Reported by: GABRIELLE SHELTON on 11/17/15 105 Prednisone (Prednisone) 20 Mg Tab, 20 MG PO DAILY, (Reported) Entered as Reported by: STONE ROBIN on 11/02/20 1046 Ropinirole HCl (Ropinirole HCl) 2 Mg Tablet, 2 MG PO HS, (Reported) Entered as Reported by: STONE ROBIN on 11/02/20 1046 Rosuvastatin Calcium (Crestor) 10 Mg Tablet, 10 MG PO HS, (Reported) Entered as Reported by: ANIRUDH PHILIPPE on 09/14/18 0851 Tamsulosin HCl (Flomax) 0.4 Mg Cap, 0.4 MG PO DAILY, (Reported) Entered as Reported by: ANIRUDH PHILIPPE on 09/14/18 08 Tramadol HCl (Tramadol HCl) 50 Mg Tablet, 50 MG PO QID PRN for PAIN-MODERATE (5- 7), (Reported) Entered as Reported by: GABRIELLE SHELTON on 11/17/15 1052 Review of Systems Review of Systems Constitutional: no symptoms reported; No diaphoresis EENTM: No Symptoms Reported Respiratory: See HPI, Orthopnea, Shortness of Air Cardiovascular: See HPI, Chest Pain, Edema; Denies Lightheadedness, Denies Palpitations, Denies Syncope Gastrointestinal: Abdomen Distended; Denies Abdominal Pain, Denies Nausea, Denies Vomiting Genitourinary: See HPI Musculoskeletal: see HPI Skin: no symptoms reported Psychiatric/Neurological: No Symptoms Reported Endocrine: No Symptoms Reported Hematologic/Lymphatic: No Symptoms Reported Past Pmfuoyc-Jnspof-Wrymwh Hx Patient Social History Tobacco Use?: No ( A TEEN,NONE SINCE) Use of E-Cig and/or Vaping dev: No Substance use?: No Alcohol Use?: No Pt feels they are or have been: No Immunizations Up To Date Tetanus Booster (TDap): Unknown Influenza Vaccine Up-to-Date: No; Not Current Seasonal Allergies Seasonal Allergies: No Past Medical History Surgeries: Yes Appendectomy, Cardiac, Gallbladder, Joint Replacement, Orthopedic Respiratory: Yes Sleep Apnea Currently Using CPAP: Yes Cardiac: Yes ("ENLARGED HEART" ) Chronic Edema/Swelling, High Cholesterol, Hypertension Neurological: No Reproductive Disorders: No Genitourinary: Yes Prostate Problems Gastrointestinal: Yes (PT REPORTS PEPTIC ULCER A TEEN; C. DIF 2015) Abdominal Hernia, Crohns Disease, C-Diff, Ulcer Musculoskeletal: Yes (CHRONIC BILATERAL LEG PAIN; CHRONIC NECK AND BACK PAIN ) Degenerate Disk Disease, Back Injury, Chronic Back Pain Endocrine: No HEENT: No (GLASSES) Cancer: No Psychosocial: No Integumentary: No Blood Disorders: No Adverse Reaction/Blood Tranf: No Family Medical History Unknown family medical history No Pertinent Family Hx SOCIAL HISTORY : -SMOKED A TEEN, NO SMOKING SINCE -ETOH--DENIES USE -DRUGS--DENIES USE PAST SURGICAL HISTORY: -APPENDECTOMY 10/[address] CATHERINE -LEFT HIP REPLACEMENT 2004 -BACK SURGERY X 2 IN 2003 -C-SPINE SURGERY 2003 -LEFT INGUINAL HERNIA REPAIR CHILD -CHOLECYSTECTOMY CARDIAC CATH [address] LUGO--ESSENTIALLY NORMAL -CARDIAC CATH 08/[address] LUGO: CONCLUSION: 1. Mild coronary artery disease, 40-50 percent proximal right coronary artery nonobstructive disease otherwise no significant obstructive disease 2. Normal left ventricular size and systolic function test and ejection fraction 60 percent 3. Normal aortic arch and great vessels of the neck Physical Exam Vital Signs Vital Signs - First Documented Capillary Refill : Less Than 3 Seconds Height, Weight, BMI Height: 6'2.00" Weight: 274lbs. 0.0oz. 124.510432sd; 39.00 BMI Method:Stated General Appearance: No Apparent Distress, WD/WN, Obese Neck: Full Range of Motion, Normal Inspection, Non Tender, Supple; No Carotid Bruit, No JVD Respiratory: Normal Breath Sounds, No Accessory Muscle Use, No Respiratory Distress Cardiovascular: Regular Rate, Rhythm, No JVD, No Murmur Gastrointestinal: Non Tender, Other (LARGE, ROTUND, FIRM. 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 Norm as Tested Skin: Normal Color, Warm/Dry, Tattoos/Piercings (MULTIPLE TATTOOS, SOME VULGAR) Progress/Results/Core Measures Results/Orders Lab Results Laboratory Tests Test 06/28/21 19:24 06/28/21 19:30 06/28/21 20:06 06/28/21 22:12 Range/Units Influenza Type A (RT-PCR) Not Detected Not Detecte Influenza Type B (RT-PCR) Not Detected Not Detecte SARS-CoV-2 RNA (RT-PCR) Not Detected Not Detecte White Blood Count 10.1 4.3-11.0 10^3/uL Red Blood Count 4.64 4.30-5.52 10^6/uL Hemoglobin 12.4 L 13.3-17.7 g/dL Hematocrit 40 40-54 % Mean Corpuscular Volume 86 80-99 fL Mean Corpuscular Hemoglobin 27 25-34 pg Mean Corpuscular Hemoglobin Concent 31 L 32-36 g/dL Red Cell Distribution Width 15.0 H 10.0-14.5 % Platelet Count 216 130-400 10^3/uL Mean Platelet Volume 9.5 9.0-12.2 fL Immature Granulocyte % (Auto) 1 % Neutrophils (%) (Auto) 67 42-75 % Lymphocytes (%) (Auto) 19 12-44 % Monocytes (%) (Auto) 10 0-12 % Eosinophils (%) (Auto) 3 0-10 % Basophils (%) (Auto) 1 0-10 % Neutrophils # (Auto) 6.7 1.8-7.8 10^3/uL Lymphocytes # (Auto) 1.9 1.0-4.0 10^3/uL Monocytes # (Auto) 1.0 0.0-1.0 10^3/uL Eosinophils # (Auto) 0.3 0.0-0.3 10^3/uL Basophils # (Auto) 0.1 0.0-0.1 10^3/uL Immature Granulocyte # (Auto) 0.1 0.0-0.1 10^3/uL Prothrombin Time 13.0 12.2-14.7 SEC INR Comment 0.9 0.8-1.4 Activated Partial Thromboplast Time 31 24-35 SEC D-Dimer 1.12 H 0.00-0.49 UG/ML Sodium Level 140 135-145 MMOL/L Potassium Level 3.7 3.6-5.0 MMOL/L Chloride Level 102 98-107 MMOL/L Carbon Dioxide Level 25 21-32 MMOL/L Anion Gap 13 5-14 MMOL/L Blood Urea Nitrogen 13 7-18 MG/DL Creatinine 1.11 0.60-1.30 MG/DL Estimat Glomerular Filtration Rate 74 BUN/Creatinine Ratio 12 Glucose Level 111 H 70-105 MG/DL Calcium Level 8.9 8.5-10.1 MG/DL Corrected Calcium 9.0 8.5-10.1 MG/DL Magnesium Level 2.1 1.6-2.4 MG/DL Total Bilirubin 0.8 0.1-1.0 MG/DL Aspartate Amino Transf (AST/SGOT) 23 5-34 U/L Alanine Aminotransferase (ALT/SGPT) 22 0-55 U/L Alkaline Phosphatase 65 40-136 U/L Total Creatine Kinase 125 30-200 U/L Creatine Kinase MB 2.5 <6.6 NG/ML Myoglobin 60.5 10.0-92.0 NG/ML Troponin I < 0.028 < 0.028 <0.028 NG/ML B-Type Natriuretic Peptide 56.8 <100.0 PG/ML Total Protein 7.1 6.4-8.2 GM/DL Albumin 3.9 3.2-4.5 GM/DL Amylase Level 29 25-125 U/L Lipase 18 8-78 U/L TSH [place] Testing 3.75 0.35-4.94 UIU/ML Urine Color YELLOW Urine Clarity CLEAR Urine pH 7.0 5-9 Urine Specific [place] 1.010 L 1.016-1.022 Urine Protein NEGATIVE NEGATIVE Urine Glucose (UA) NEGATIVE NEGATIVE Urine Ketones NEGATIVE NEGATIVE Urine Nitrite NEGATIVE NEGATIVE Urine Bilirubin NEGATIVE NEGATIVE Urine Urobilinogen 0.2 < = 1.0 MG/DL Urine Leukocyte Esterase NEGATIVE NEGATIVE Urine RBC (Auto) NEGATIVE NEGATIVE Urine RBC NONE /HPF Urine WBC NONE /HPF Urine Squamous Epithelial Cells NONE /HPF Urine Renal Epithelial Cells NONE /HPF Urine Crystals NONE /LPF Urine Bacteria NEGATIVE /HPF Urine Casts NONE /LPF Urine Mucus NEGATIVE /LPF Urine Culture Indicated NO My Orders Orders - KIRA SOUZA DO Cbc With Automated Diff (06/28/21 19:21) Magnesium (06/28/21 19:21) Chest 1 View, Ap/Pa Only (06/28/21 19:21) Ekg Tracing (06/28/21 19:21) Comprehensive Metabolic Panel (06/28/21 19:21) Myoglobin Serum (06/28/21 19:21) Protime With Inr (06/28/21 19:21) Partial Thromboplastin Time (06/28/21 19:21) O2 (06/28/21 19:21) Monitor-Rhythm Ecg Trace Only (06/28/21 19:21) Ed Iv/Invasive Line Start (06/28/21 19:21) Creatine Kinase (06/28/21 19:21) Creatine Kinase Mb (06/28/21 19:21) Lipase (06/28/21 19:21) Amylase (06/28/21 19:21) Bnp Jose (06/28/21 19:21) Fibrin Degradation Products (06/28/21 19:21) Troponin I [place] (06/28/21 19:21) Nitroglycerin Ointment (Nitrobid Ointme (06/28/21 19:21) Aspirin Chewable Tablet (Baby Aspirin Ch (06/28/21 19:30) Thyroid Analyzer (06/28/21 19:21) Ua Culture If Indicated (06/28/21 19:21) Bladder Scan (06/28/21 19:21) Covid 19 Inhouse Test (06/28/21 19:21) Influenza A And B By Pcr (06/28/21 19:21) Isolation Central Supply Req (06/28/21 19:21) Ct Angio Chest W (06/28/21 20:28) Iohexol Injection (Omnipaque 350 Mg/Ml 1 (06/28/21 21:00) Received Contrast (Hold Metformin- Contr (06/28/21 21:00) Sodium Chloride Flush (Catheter Flush Sy (06/28/21 21:00) Ekg Tracing (06/28/21 22:07) Troponin I [place] (06/28/21 22:07) Medications Given in ED Current Medications Medications Dose Ordered Sig/Jerry Route Start Time Stop Time Status Last Admin Dose Admin Aspirin 324 mg ONCE ONCE PO 06/28/21 19:30 06/28/21 19:31 DC 06/28/21 19:30 324 MG Iohexol 100 ml ONCE ONCE IV 06/28/21 21:00 06/28/21 21:01 DC 06/28/21 21:17 100 ML Sodium Chloride 10 ml NEEDED PRN IV 06/28/21 21:00 06/28/21 21:18 10 ML Vital Signs/I&O 06/28/21 06/28/21 19:15 19:15 Temp 36.8 Pulse 87 Resp 18 B/P (MAP) 208/112 (144) Pulse Ox 95 95 O2 Delivery Room Air Room Air Blood Pressure Mean: 144 Progress Progress Note : Progress Note GIVEN ASPIRIN AND NITROPASTE BP DOWN AND CHEST PAIN EASED REPEAT EKG AND TROPONIN NORMAL/UNCHANGED. Initial ECG Impression Date: Jun 28, 2021 Initial ECG Impression Time: 19:14 Initial ECG Rate: 81 Initial ECG Rhythm: Normal Sinus EKG : EKG Time: 22:05 Rate: 71 Rhythm: Normal Sinus ECG Comparisson: Unchanged Diagnostic Imaging Comments CXR--PER RADIOLOGIST REPORT There is cardiomegaly and mild pulmonary venous congestion. No significant overt edema is identified. Aeration of lungs is improved when compared to previous study. There is no evidence of pneumothorax or significant pleural effusion. IMPRESSION: Cardiomegaly and pulmonary venous congestion without significant overt edema. CTA CHEST--PER RADIOLOGIST REPORT AT 2135 There is good opacification of pulmonary arteries without intraluminal filling defect. Thoracic aorta is of normal caliber. There is mild dependent atelectasis in the lung bases, greater on the right. Otherwise, no consolidation is identified in the lungs. There is no significant pleural or pericardial fluid. No pathologically enlarged adenopathy is identified. The gallbladder is surgically absent. IMPRESSION: No CTA evidence of pulmonary embolism although there is mild dependent atelectasis in the lung bases, greater on the right. Reviewed: Reviewed by Me Departure Communication (Admissions) 2299--SPOKE WITH DR. GARZA, NURSING HOME AIDE, ADVISES ADMIT TO HOSPITALIST WITH CARDIOLOGY TO CONSULT. ORDERS NOTED TO DC NITROPASTE AND GIVE NORVASC 10 MG NOW AND DAILY 2309--SPOKE WITH DR. SANDOVAL, HOSPITALIST. ACCEPTS PT FOR ADMIT. Impression Primary Impression: Chest pain Additional Impressions: HTN (hypertension) Edema Disposition: ADMITTED INPATIENT Condition: Improved Admissions Decision to Admit Reason: Admit from ER (General) Decision to Admit/Date: Jun 28, 2021 Time/Decision to Admit Time: 23:00 Departure-Patient Inst. Referrals: ELIER LUGO MD, SAMUEL K JR, DO (PCP) Primary Care Physician Add. Discharge Instructions: All discharge instructions reviewed with patient and/or family. Voiced un derstanding. KIRA SOUZA DO Jun 28, 2021 19:52
[2021-06-28 19:54] LABS: INR 0.9 (0.8-1.4)
[2021-06-28 20:04] LABS: ALBUMIN 3.9 GM/DL (3.2-4.5); BILIRUBIN,TOTAL 0.8 MG/DL (0.1-1.0); CALCIUM 8.9 MG/DL (8.5-10.1); CREATININE SERUM 1.11 MG/DL (0.60-1.30); MAGNESIUM 2.1 MG/DL (1.6-2.4); POTASSIUM 3.7 MMOL/L (3.6-5.0); TOTAL PROTEIN 7.1 GM/DL (6.4-8.2)
[2021-06-28 20:05] LABS: CREATINE KINASE MB 2.5 NG/ML (<6.6)
--- NOTE | 2021-06-28 20:07 | Diagnostic Imaging Report ---
INDICATION: Chest pain AP view of the chest is obtained with comparison made to study of 11/02/2020. There is cardiomegaly and mild pulmonary venous congestion. No significant overt edema is identified. Aeration of lungs is improved when compared to previous study. There is no evidence of pneumothorax or significant pleural effusion. IMPRESSION: Cardiomegaly and pulmonary venous congestion without significant overt edema. Dictated by: Dictated on workstation # [id number]
[2021-06-28 20:11] LABS: BILIRUBIN,URINE NEGATIVE (NEGATIVE); CLARITY,URINE CLEAR; COLOR,URINE YELLOW; GLUCOSE, URINE (UA) NEGATIVE (NEGATIVE); KETONES,URINE NEGATIVE (NEGATIVE); LEUKOCYTE ESTERASE ,URINE NEGATIVE (NEGATIVE); NITRITE,URINE NEGATIVE (NEGATIVE); PROTEIN,URINE NEGATIVE (NEGATIVE)
[2021-06-28 20:17] LABS: BACTERIA,URINE NEGATIVE /HPF
[2021-06-28 20:17] LABS: TSH (THYROID ANALYZER) 3.75 UIU/ML (0.35-4.94)
[2021-06-28] MEDS ORDERED: HOLD METFORMIN - RECEIVED CONTRAST 20 ML VIAL IV SCH (21:00)
[2021-06-28] MEDS ORDERED: IOHEXOL 350 MG/ML 100 ML (OMNIPAQUE 350) VIAL IV ONE (21:00)
[2021-06-28] MEDS ORDERED: CATHETER FLUSH 10 ML SYR IV PRN (21:00)
--- NOTE | 2021-06-28 21:32 | Diagnostic Imaging Report ---
PROCEDURE: CT angiography of the chest with contrast. TECHNIQUE: Multiple contiguous axial images were obtained through the chest after uneventful bolus administration of intravenous contrast. 3D reconstructed CTA MIP acquisitions were also performed. Auto Exposure Controls were utilized during the CT exam to meet ALARA standards for radiation dose reduction. INDICATION: High probability for pulmonary embolism with chest pain There is good opacification of pulmonary arteries without intraluminal filling defect. Thoracic aorta is of normal caliber. There is mild dependent atelectasis in the lung bases, greater on the right. Otherwise, no consolidation is identified in the lungs. There is no significant pleural or pericardial fluid. No pathologically enlarged adenopathy is identified. The gallbladder is surgically absent. IMPRESSION: No CTA evidence of pulmonary embolism although there is mild dependent atelectasis in the lung bases, greater on the right. Dictated by: Dictated on workstation # [id number]
[2021-06-28] MEDS ORDERED: amLODIPine 10 MG (NORVASC) TAB PO ONE (23:15)
[2021-06-29] VITALS (10 sets, daily range): BP systolic 117–179; BP diastolic 70–101
[2021-06-29] MEDS ORDERED: CATHETER FLUSH 10 ML SYR IVP PRN (01:00)
[2021-06-29] MEDS ORDERED: morphine INJ 4 MG/ML 1 ML (VIAL/SYRINGE) IV PRN (01:15)
[2021-06-29] MEDS ORDERED: NITROGLYCERIN 0.4 MG SL TABS BTL 25'S SL PRN (01:15)
[2021-06-29] MEDS ORDERED: ONDANSETRON 4 MG/2 ML (SDV) Z0FRAN IV PRN (01:15)
[2021-06-29 05:10] LABS: TRIGLYCERIDES 161 MG/DL (<150); VLDL CHOLESTEROL 32 MG/DL (5-40)
[2021-06-29 05:15] LABS: CHOLESTEROL 144 MG/DL (< 200)
[2021-06-29 05:16] LABS: HDL CHOLESTEROL 37 MG/DL (40-60)
[2021-06-29] MEDS ORDERED: FUROSEMIDE 20 MG (LASIX) TAB PO SCH (07:00)
[2021-06-29] MEDS: CATHETER FLUSH 10 ML SYR IVP SCH ×3 (07:09→21:13)
--- NOTE | 2021-06-29 08:21 | History & Physical-Hospitalist ---
History of Present Illness HPI/Chief Complaint Pt is a 65yoCM with past medical history of hypertension hyperlipidemia who presented to the emergency department due to chest pain and lower extremity edema. He states it came on all of a sudden roughly 4 or 5 days ago. He has never had anything similar to this. He has a long history of chronic back pain and is supposed to be seeing a neurosurgeon in the future for evaluation and thought it may be due to that. He developed shortness of breath with ambulation as well. He denies orthopnea. He does complain of chest tightness in the center of his chest. He states this does not radiate anywhere else. He denies any jaw pain, nausea, vomiting. Source: patient Date Seen 06/29/21 Time Seen by a Provider: 07:45 Attending Physician Khai Morley MD PCP Hunter Morales Jr,DO Referring Physician Date of Admission Jun 28, 2021 at 23:00 Home Medications & Allergies Home Medications Reviewed patient Home Medication Reconciliation performed by pharmacy medication reconciliations heating technician and/or nursing. Patients Allergies have been reviewed. Allergies Allergies Coded Allergies hydromorphone HCl (Unverified Allergy, Intermediate, ITCHING, HAS RECEIVED HYDROCODONE IN THE PAST, 11/16/15) fentanyl (Unverified Allergy, Mild, 12/30/08) nalbuphine (Unverified Allergy, Mild, RECEIVED MORPHINE IN OR, 11/16/15) LIV Inhibitors (Verified Allergy, Unknown, 06/28/21) Past Nnhgcqk-Pinwnx-Kzishl Hx Patient Social History Employed/Student: employed Tobacco Use?: No Smoking Status: Never a Smoker Use of E-Cig and/or Vaping dev: No Substance use?: No Alcohol Use?: No Pt feels they are or have been: No Immunizations Up To Date Date of Influenza Vaccine: Jan 29, 2021 Tetanus Booster (TDap): Unknown Date of Pneumonia Vaccine: Apr 24, 2016 Seasonal Allergies Seasonal Allergies: No Current Status Advance Directives: No Communicates: Verbally Primary Language: Lithuanian Preferred Spoken Language: Lithuanian Is interpretation needed?: No Implanted or Applied Medical D: None Past Medical History Surgeries: Appendectomy, Cardiac, Gallbladder, Joint Replacement, Orthopedic Sleep Apnea Currently Using CPAP: Yes Chronic Edema/Swelling, High Cholesterol, Hypertension Prostate Problems Abdominal Hernia, Crohns Disease, C-Diff, Ulcer Degenerate Disk Disease, Back Injury, Chronic Back Pain Blood Disorders: No Adverse Reaction/Blood Tranf: No BPH, HTN, chronic back pain, HLD, LIANA on CPAP Family Medical History Reviewed Nursing Family Hx Unknown family medical history No Pertinent Family Hx SOCIAL HISTORY : -SMOKED A TEEN, NO SMOKING SINCE -ETOH--DENIES USE -DRUGS--DENIES USE PAST SURGICAL HISTORY: -APPENDECTOMY 10/[address] CATHERINE -LEFT HIP REPLACEMENT 2004 -BACK SURGERY X 2 IN 2003 -C-SPINE SURGERY 2003 -LEFT INGUINAL HERNIA REPAIR CHILD -CHOLECYSTECTOMY CARDIAC CATH [address] LUGO--ESSENTIALLY NORMAL -CARDIAC CATH 08/[address] LUGO: CONCLUSION: 1. Mild coronary artery disease, 40-50 percent proximal right coronary artery nonobstructive disease otherwise no significant obstructive disease 2. Normal left ventricular size and systolic function test and ejection fraction 60 percent 3. Normal aortic arch and great vessels of the neck Review of Systems Constitutional: No chills, No fever EENTM: no symptoms reported Respiratory: dyspnea on exertion; No orthopnea; short of breath Cardiovascular: see HPI, chest pain, edema Gastrointestinal: No abdominal pain, No constipation, No diarrhea, No nausea, No vomiting Genitourinary: No decreased output, No frequency, No hesitancy Musculoskeletal: no symptoms reported Skin: no symptoms reported Psychiatric/Neurological: No Symptoms Reported Physical Exam Physical Exam Vital Signs Vital Signs - First Documented Capillary Refill : Less Than 3 Seconds Height, Weight, BMI Height: 6'2.00" Weight: 274lbs. 0.0oz. 124.749237qk; 40.00 BMI Method:Stated General Appearance: No Apparent Distress, Chronically ill, Obese HEENT: PERRL/EOMI, Moist Mucous Membranes Neck: Normal Inspection, Supple Respiratory: Lungs Clear, No Respiratory Distress Cardiovascular: Regular Rate, Rhythm, No JVD, No Murmur Gastrointestinal: Normal Bowel Sounds, Non Tender, Soft Extremity: Normal Capillary Refill, Pedal Edema Neurologic/Psychiatric: Alert, Oriented x3, Normal Mood/Affect Results Results/Procedures Labs Laboratory Tests 06/28/21 19:30 Patient resulted labs reviewed. Imaging: Reviewed Imaging Films Imaging [facility], [place] NAME: DUONG RODRÍGUEZ [facility] REC#: [id number] PT STATUS: REG ER : 1955 PHYSICIAN: KIRA SOUZA DO ADMIT DATE: 06/28/21/ER Signed Date of Exam:06/28/21 CHEST 1 VIEW, AP/PA ONLY INDICATION: Chest pain AP view of the chest is obtained with comparison made to study of 11/02/2020. There is cardiomegaly and mild pulmonary venous congestion. No significant overt edema is identified. Aeration of lungs is improved when compared to previous study. There is no evidence of pneumothorax or significant pleural effusion. IMPRESSION: Cardiomegaly and pulmonary venous congestion without significant overt edema. Dictated by: Dictated on workstation # [id number] Dict: 06/28/212003 Trans: 06/28/212053 [facility] [id number] Interpreted by: SAIDA DAVIS MD Electronically signed by: SAIDA DAVIS MD 06/28/212053 [facility], [place] NAME: DUONG RODRÍGUEZ [facility] REC#: [id number] PT STATUS: ADM Daija : 1955 PHYSICIAN: KIRA SOUZA DO ADMIT DATE: 06/28/21/ICU Signed Date of Exam:06/28/21 CT ANGIO CHEST W PROCEDURE: CT angiography of the chest with contrast. TECHNIQUE: Multiple contiguous axial images were obtained through the chest after uneventful bolus administration of intravenous contrast. 3D reconstructed CTA MIP acquisitions were also performed. Auto Exposure Controls were utilized during the CT exam to meet ALARA standards for radiation dose reduction. INDICATION: High probability for pulmonary embolism with chest pain There is good opacification of pulmonary arteries without intraluminal filling defect. Thoracic aorta is of normal caliber. There is mild dependent atelectasis in the lung bases, greater on the right. Otherwise, no consolidation is identified in the lungs. There is no significant pleural or pericardial fluid. No pathologically enlarged adenopathy is identified. The gallbladder is surgically absent. IMPRESSION: No CTA evidence of pulmonary embolism although there is mild dependent atelectasis in the lung bases, greater on the right. Dictated by: Dictated on workstation # [id number] Dict: 06/28/212125 Trans: 06/29/2144 B [id number] Interpreted by: SAIDA DAVIS MD Electronically signed by: SAIDA DAVIS MD 06/29/21 0844 [facility] [place], [place] NAME: DUONG RODRÍGUEZ [facility] REC#: [id number] PT STATUS: ADM Daija : 1955 PHYSICIAN: LASHONDA BROOKS ADMIT DATE: 06/28/21/ICU Draft Date of Exam:06/29/21 US VENOUS LOWER EXT DONNA PROCEDURE: US Venous Lower Ext Donna. TECHNIQUE: Multiple real-time grayscale images were obtained over the lower extremities in various projections, bilaterally. Additional duplex Doppler and color Doppler images were also obtained. INDICATION: Lower extremity swelling and pain. COMPARISON: None. FINDINGS: Visualized deep and superficial venous system is patent. There is no DVT. IMPRESSION: Negative lower extremity venous Doppler. Dictated on workstation # [id number] Dict: 06/29/21 1006 Trans: 06/29/21 1008 [id number] Interpreted by: VERONICA CHAVEZ Electronically signed by: Assessment/Plan Admission Diagnosis Chest pain Admission Status: Observation Assessment and Plan Chest pain Lower extremity edema Troponins negative Echo ordered Cardiology consulted telemetry Concerning for heart failure but no known history Continue IV lasix HTN HLD Continue home meds BP improved with Norvasc Chronic back pain Continue home meds DVT ppx: Lovenox Diagnosis/Problems Diagnosis/Problems (1) Mixed hyperlipidemia (2) Essential hypertension (3) HTN (hypertension) Status: Acute Qualifiers: Hypertension type: primary hypertension Qualified Codes: I10 - Essential (primary) hypertension (4) Coronary artery disease without angina pectoris Status: Chronic Qualifiers: Coronary Disease-Associated Artery/Lesion type: unspecified vessel or lesion type [place] vs. transplanted heart: [place] heart Qualified Codes: I25.10 - Atherosclerotic heart disease of [place] coronary artery without angina pectoris (5) Edema Status: Acute (6) Chest pain Clinical Quality Measures AMI/AHF: ASA po Prior to arrival: FLORIAN Garcia MD Jun 29, 2021 08:21
[2021-06-29] MEDS: CALCIUM CARBONATE 600 MG (CALCARB) TAB PO SCH ×2 (08:51→20:07)
[2021-06-29] MEDS: CYANOCOBALAMIN 1,000 MCG (VITAMIN B-12) TABLET PO SCH (08:51)
[2021-06-29] MEDS: VITAMIN D3 25 MCG (1,000 UNITS) TABLET PO SCH ×2 (08:51→20:08)
[2021-06-29] MEDS: ASPIRIN E.C. 81 MG (ECOTRIN) TAB PO SCH (08:51)
[2021-06-29] MEDS: MAGNESIUM OXIDE (MAG-OX)400 MG TAB PO SCH ×2 (08:51→17:36)
[2021-06-29] MEDS: GABAPENTIN 600 MG (NEURONTIN) TAB PO SCH ×2 (08:52→12:47)
[2021-06-29] MEDS: ZINC SULFATE 220 MG CAPSULE PO SCH (08:52)
[2021-06-29] MEDS: OMEGA 3 (FISH OIL) 1000 MG CAP PO SCH ×3 (08:52→17:36)
[2021-06-29] MEDS: predniSONE 20 MG TAB PO SCH (08:52)
[2021-06-29] MEDS: MULTIVIT W/MINERALS TAB (THERAGRAN M) PO SCH (08:52)
--- NOTE | 2021-06-29 08:52 | Consultation-Cardiology ---
HPI-Cardiology Cardiology Consultation Date of Consultation 06/29/21 Date of Admission Time Seen by Provider: 08:47 Indication: Peripheral edema HPI 65-year-old gentleman with history of hypertension, has been having worsening pedal edema over the past few days associated with increasing shortness of breath, weight gain. Denied any chest pain. No palpitation. No syncope or camilla r syncopal episodes. No claudications. Reported that his dyspnea is mainly related to his weight gain and edema. Home Medications & Allergies Allergies: Coded Allergies: hydromorphone HCl (Unverified Allergy, Intermediate, ITCHING, HAS RECEIVED HYDROCODONE IN THE PAST, 11/16/15) fentanyl (Unverified Allergy, Mild, 12/30/08) nalbuphine (Unverified Allergy, Mild, RECEIVED MORPHINE IN OR, 11/16/15) LIV Inhibitors (Verified Allergy, Unknown, 06/28/21) Home Medication List Reviewed: Yes HZN-Ksejqc-Mrwcgk Hx Patient Social History Marital Status: Employed/Student: employed Smoking Status: Never a Smoker Recent Hopitalizations: No Have you traveled recently?: No Alcohol Use?: No Immunizations Up To Date Tetanus Booster (TDap): Unknown Date of Pneumonia Vaccine: Apr 24, 2016 Date of Influenza Vaccine: Jan 29, 2021 Past Medical History Discussed below Family Medical History Significant Family History: No Pertinent Family Hx Family Medical Hx Noncontributory Family History: Unknown family medical history Review of Systems-General Review of Systems Constitutional: no symptoms reported; No diaphoresis EENTM: see HPI, no symptoms reported Respiratory: see HPI; No cough; dyspnea on exertion; No hemoptysis, No orthopnea, No phlegm, No short of breath, No stridor, No wheezing, No other Cardiovascular: see HPI; No chest pain; edema; No Hx of Intervention, No palpitations, No syncope, No vascular heart diseas, No other Gastrointestinal: no symptoms reported, see HPI Genitourinary: no symptoms reported, see HPI Musculoskeletal: see HPI Skin: no symptoms reported Psychiatric/Neurological: No Symptoms Reported Reviewed Test Results Reviewed Test Results Lab Laboratory Tests Test 06/28/21 19:24 06/28/21 19:30 06/28/21 20:06 06/28/21 22:12 Range/Units Influenza Type A (RT-PCR) Not Detected Not Detecte Influenza Type B (RT-PCR) Not Detected Not Detecte SARS-CoV-2 RNA (RT-PCR) Not Detected Not Detecte White Blood Count 10.1 4.3-11.0 10^3/uL Red Blood Count 4.64 4.30-5.52 10^6/uL Hemoglobin 12.4 L 13.3-17.7 g/dL Hematocrit 40 40-54 % Mean Corpuscular Volume 86 80-99 fL Mean Corpuscular Hemoglobin 27 25-34 pg Mean Corpuscular Hemoglobin Concent 31 L 32-36 g/dL Red Cell Distribution Width 15.0 H 10.0-14.5 % Platelet Count 216 130-400 10^3/uL Mean Platelet Volume 9.5 9.0-12.2 fL Immature Granulocyte % (Auto) 1 % Neutrophils (%) (Auto) 67 42-75 % Lymphocytes (%) (Auto) 19 12-44 % Monocytes (%) (Auto) 10 0-12 % Eosinophils (%) (Auto) 3 0-10 % Basophils (%) (Auto) 1 0-10 % Neutrophils # (Auto) 6.7 1.8-7.8 10^3/uL Lymphocytes # (Auto) 1.9 1.0-4.0 10^3/uL Monocytes # (Auto) 1.0 0.0-1.0 10^3/uL Eosinophils # (Auto) 0.3 0.0-0.3 10^3/uL Basophils # (Auto) 0.1 0.0-0.1 10^3/uL Immature Granulocyte # (Auto) 0.1 0.0-0.1 10^3/uL Prothrombin Time 13.0 12.2-14.7 SEC INR Comment 0.9 0.8-1.4 Activated Partial Thromboplast Time 31 24-35 SEC D-Dimer 1.12 H 0.00-0.49 UG/ML Sodium Level 140 135-145 MMOL/L Potassium Level 3.7 3.6-5.0 MMOL/L Chloride Level 102 98-107 MMOL/L Carbon Dioxide Level 25 21-32 MMOL/L Anion Gap 13 5-14 MMOL/L Blood Urea Nitrogen 13 7-18 MG/DL Creatinine 1.11 0.60-1.30 MG/DL Estimat Glomerular Filtration Rate 74 BUN/Creatinine Ratio 12 Glucose Level 111 H 70-105 MG/DL Calcium Level 8.9 8.5-10.1 MG/DL Corrected Calcium 9.0 8.5-10.1 MG/DL Magnesium Level 2.1 1.6-2.4 MG/DL Total Bilirubin 0.8 0.1-1.0 MG/DL Aspartate Amino Transf (AST/SGOT) 23 5-34 U/L Alanine Aminotransferase (ALT/SGPT) 22 0-55 U/L Alkaline Phosphatase 65 40-136 U/L Total Creatine Kinase 125 30-200 U/L Creatine Kinase MB 2.5 <6.6 NG/ML Myoglobin 60.5 10.0-92.0 NG/ML Troponin I < 0.028 < 0.028 <0.028 NG/ML B-Type Natriuretic Peptide 56.8 <100.0 PG/ML Total Protein 7.1 6.4-8.2 GM/DL Albumin 3.9 3.2-4.5 GM/DL Amylase Level 29 25-125 U/L Lipase 18 8-78 U/L TSH [place] Testing 3.75 0.35-4.94 UIU/ML Urine Color YELLOW Urine Clarity CLEAR Urine pH 7.0 5-9 Urine Specific [place] 1.010 L 1.016-1.022 Urine Protein NEGATIVE NEGATIVE Urine Glucose (UA) NEGATIVE NEGATIVE Urine Ketones NEGATIVE NEGATIVE Urine Nitrite NEGATIVE NEGATIVE Urine Bilirubin NEGATIVE NEGATIVE Urine Urobilinogen 0.2 < = 1.0 MG/DL Urine Leukocyte Esterase NEGATIVE NEGATIVE Urine RBC (Auto) NEGATIVE NEGATIVE Urine RBC NONE /HPF Urine WBC NONE /HPF Urine Squamous Epithelial Cells NONE /HPF Urine Renal Epithelial Cells NONE /HPF Urine Crystals NONE /LPF Urine Bacteria NEGATIVE /HPF Urine Casts NONE /LPF Urine Mucus NEGATIVE /LPF Urine Culture Indicated NO Test 06/29/21 04:45 Range/Units Triglycerides Level 161 H <150 MG/DL Cholesterol Level 144 < 200 MG/DL LDL Cholesterol Direct 88 1-129 MG/DL VLDL Cholesterol 32 5-40 MG/DL HDL Cholesterol 37 L 40-60 MG/DL Physical Exam Physical Exam Vital Signs Vital Signs - First Documented Capillary Refill : Less Than 3 Seconds Height, Weight, BMI Height: 6'2.00" Weight: 274lbs. 0.0oz. 124.423160hc; 40.00 BMI Method:Stated General Appearance: No Apparent Distress, WD/WN, Obese Eyes: Bilateral Eye Normal Inspection, Bilateral Eye PERRL, Bilateral Eye EOMI HEENT: PERRL/EOMI, TMs Normal, Normal ENT Inspection, Pharynx Normal, Moist Mucous Membranes Neck: Full Range of Motion, Normal Inspection, Non Tender, Supple; No Carotid Bruit, No JVD Respiratory: Normal Breath Sounds, No Accessory Muscle Use, No Respiratory Distress Cardiovascular: Regular Rate, Rhythm, No JVD, No Murmur Gastrointestinal: Non Tender, Other (LARGE, ROTUND, FIRM. ) Back: Normal Inspection, No CVA Tenderness, No Vertebral Tenderness Extremity: Pedal Edema (3+ EDEMA TO LEGS BILATERALLY WITH CHRONIC VENOUS STASIS CHANGES BILATERALLY) Neurologic/Psychiatric: Alert, Oriented x3, No Motor/Sensory Deficits, Normal Mood/Affect, heel varnisher II-XII Norm as Tested Skin: Normal Color, Warm/Dry, Tattoos/Piercings (MULTIPLE TATTOOS, SOME VULGAR) Lymphatic: No Adenopathy A/P-Cardiology Admission Diagnosis Peripheral edema Coronary artery disease Hypertension Hyperlipidemia Assessment/Plan Peripheral edema, fluid overload, mildly due to chronic venous insufficiency. I will evaluate venous Doppler study and would consider formal venous study as an outpatient. Started on diuretics. Continue to monitor closely. BNP and cardiac enzymes were normal, awaiting 2D echocardiogram Hypertension, poorly controlled, maintained on multiple medications. Discontinue amlodipine Patient was started on Coreg 25 twice daily, I will change losartan to 100 mg daily and add hydrochlorothiazide 25 mg daily Coronary artery disease, mild per cardiac catheterization done in August 2018, had mildly elevated left ventricular end-diastolic pressure of 18 at that time. Hyperlipidemia, maintained on rosuvastatin. Continue to monitor Arthritis. Managed and followed by primary care physician Obesity, BMI 40, we discussed weight loss Clinical Quality Measures AMI/AHF: ASA po Prior to arrival: ELIER Tapia MD Jun 29, 2021 08:52
[2021-06-29] MEDS: LORATADINE (CLARITIN) 10 MG TAB PO SCH (08:53)
[2021-06-29] MEDS: TAMSULOSIN 0.4 MG (FLOMAX) CAP PO SCH (08:53)
[2021-06-29] MEDS: KCL 10 MEQ TAB (MICRO K) PO SCH ×2 (08:53→17:36)
[2021-06-29] MEDS: FINASTERIDE (PROSCAR) 5 MG TAB PO SCH (08:53)
[2021-06-29] MEDS ORDERED: LOSARTAN 50 MG (COZAAR) TAB PO SCH (09:00)
[2021-06-29] MEDS ORDERED: amLODIPine 10 MG (NORVASC) TAB PO SCH (09:00)
[2021-06-29] MEDS: LOSARTAN 100 MG (COZAAR) TABLET PO SCH (09:12)
[2021-06-29] MEDS: FUROSEMIDE 40 MG/4 ML INJ (LASIX) IVP SCH ×2 (09:40→17:37)
--- NOTE | 2021-06-29 10:08 | Diagnostic Imaging Report ---
PROCEDURE: US Venous Lower Ext [place]. TECHNIQUE: Multiple real-time grayscale images were obtained over the lower extremities in various projections, bilaterally. Additional duplex Doppler and color Doppler images were also obtained. INDICATION: Lower extremity swelling and pain. COMPARISON: None. FINDINGS: Visualized deep and superficial venous system is patent. There is no DVT. IMPRESSION: Negative lower extremity venous Doppler. Dictated by: Dictated on workstation # [id number]
[2021-06-29] MEDS ORDERED: CLC600T PO (12:13)
[2021-06-29] MEDS ORDERED: FURO20TA4 PO (12:13)
[2021-06-29] MEDS ORDERED: HYDR-3820 PO (12:13)
[2021-06-29] MEDS ORDERED: MAGN250T31 PO (12:13)
[2021-06-29] MEDS ORDERED: PRED5TAB PO (12:13)
[2021-06-29] MEDS ORDERED: CHOL-34 PO (12:13)
[2021-06-29] MEDS ORDERED: ZINC50TA58 PO (12:13)
[2021-06-29] MEDS ORDERED: CYAN-41 PO (12:13)
[2021-06-29] MEDS ORDERED: rOPINIRole 1 MG (REQUIP) TABLET PO SCH (21:00)
[2021-06-29] MEDS ORDERED: MELATONIN 10 MG TABLET PO SCH (21:00)
[2021-06-29] MEDS ORDERED: CYCLOBENZAPRINE 10 MG (FLEXERIL) TAB PO SCH (21:00)
[2021-06-29] MEDS ORDERED: GABAPENTIN 600 MG (NEURONTIN) TAB PO SCH (21:00)
[2021-06-29] MEDS ORDERED: ROSUVASTATIN 10 MG (CRESTOR) TABLET PO SCH (21:00)
[2021-06-30] VITALS: BP 100/66
[2021-06-30 04:00] VITALS: BP 101/69
[2021-06-30] MEDS: CATHETER FLUSH 10 ML SYR IVP SCH (05:31)
[2021-06-30] MEDS: CYANOCOBALAMIN 1,000 MCG (VITAMIN B-12) TABLET PO SCH (06:10)
[2021-06-30] MEDS: predniSONE 20 MG TAB PO SCH (06:10)
[2021-06-30] MEDS: MULTIVIT W/MINERALS TAB (THERAGRAN M) PO SCH (06:10)
[2021-06-30] MEDS: FUROSEMIDE 40 MG/4 ML INJ (LASIX) IVP SCH (06:10)
[2021-06-30 07:39] VITALS: BP 122/72
[2021-06-30] MEDS: FINASTERIDE (PROSCAR) 5 MG TAB PO SCH (07:57)
[2021-06-30] MEDS: GABAPENTIN 600 MG (NEURONTIN) TAB PO SCH (07:57)
[2021-06-30] MEDS: MAGNESIUM OXIDE (MAG-OX)400 MG TAB PO SCH (07:57)
[2021-06-30] MEDS: TAMSULOSIN 0.4 MG (FLOMAX) CAP PO SCH (07:57)
[2021-06-30] MEDS: ZINC SULFATE 220 MG CAPSULE PO SCH (07:57)
[2021-06-30] MEDS: LORATADINE (CLARITIN) 10 MG TAB PO SCH (07:57)
[2021-06-30] MEDS: CALCIUM CARBONATE 600 MG (CALCARB) TAB PO SCH (07:57)
[2021-06-30] MEDS: ASPIRIN E.C. 81 MG (ECOTRIN) TAB PO SCH (07:57)
[2021-06-30] MEDS: LOSARTAN 100 MG (COZAAR) TABLET PO SCH (07:58)
[2021-06-30] MEDS: VITAMIN D3 25 MCG (1,000 UNITS) TABLET PO SCH (07:58)
[2021-06-30] MEDS: KCL 10 MEQ TAB (MICRO K) PO SCH (07:58)
[2021-06-30] MEDS: OMEGA 3 (FISH OIL) 1000 MG CAP PO SCH (07:58)
[2021-06-30 08:25] LABS: POTASSIUM 3.3 MMOL/L (3.6-5.0)
[2021-06-30 08:26] LABS: CALCIUM 9.6 MG/DL (8.5-10.1)
[2021-06-30 08:30] LABS: CREATININE SERUM 1.58 MG/DL (0.60-1.30)
--- NOTE | 2021-06-30 08:54 | Discharge Summary ---
Diagnosis/Chief Complaint Date of Admission Jun 28, 2021 at 23:00 Date of Discharge Discharge Date: Jun 30, 2021 Admission Diagnosis Chest pain Primary Care Hunter Morales Jr,DO Discharge Diagnosis (1) Mixed hyperlipidemia (2) Essential hypertension (3) HTN (hypertension) Status: Acute (4) Coronary artery disease without angina pectoris Status: Chronic (5) Edema Status: Acute (6) Chest pain Discharge Summary Discharge Physical Exam Allergies: Coded Allergies: hydromorphone HCl (Unverified Allergy, Intermediate, ITCHING, HAS RECEIVED HYDROCODONE IN THE PAST, 11/16/15) fentanyl (Unverified Allergy, Mild, 12/30/08) nalbuphine (Unverified Allergy, Mild, RECEIVED MORPHINE IN OR, 11/16/15) LIV Inhibitors (Verified Allergy, Unknown, 06/28/21) Vitals & I&Os Vital Signs Date Time Temp Pulse Resp B/P (MAP) Pulse Ox O2 Delivery O2 Flow Rate FiO2 06/30/21 07:39 36.3 71 18 122/72 (89) Room Air 06/30/21 04:00 91 General Appearance: No Apparent Distress, WD/WN Respiratory: Lungs Clear, No Respiratory Distress Cardiovascular: Regular Rate, Rhythm, No Murmur Gastrointestinal: Normal Bowel Sounds, Soft Extremity: Swelling Neurologic/Psychiatric: Alert, Oriented x3 Hospital Course Patient was admitted to the hospital secondary to chest pain and lower extremity edema. He had negative troponins that were trended. He underwent an echo which revealed an EF of 55% with no diastolic dysfunction or valvular abnormalities. Edema was thought to be due to venous insufficiency. He also had venous ultrasounds of his bilateral lower extremities done which were negative. Cardiology was consulted and recommended outpatient follow-up for further vascular evaluation at Dr. Cassidy's clinic and outpatient stress test. He was discharged home in stable condition. Labs (last 24 hrs) Laboratory Tests 06/30/21 08:00: Sodium Level 138, Potassium Level 3.3L, Chloride Level 101, Carbon Dioxide Level 24, Anion Gap 13, Blood Urea Nitrogen 23H, Creatinine 1.58H, Estimat Glomerular Filtration Rate 49, BUN/Creatinine Ratio 15, Glucose Level 159H, Calcium Level 9.6 Patient resulted labs reviewed. Pending Labs Laboratory Tests 06/30/21 08:00: Sodium Level 138, Potassium Level 3.3, Chloride Level 101, Carbon Dioxide Level 24, Anion Gap 13, Blood Urea Nitrogen 23, Creatinine 1.58, Estimat Glomerular Filtration Rate 49, BUN/Creatinine Ratio 15, Glucose Level 159, Calcium Level 9.6 Imaging: Reviewed Imaging Films Discussion & Recommendations Discharge Planning: >30 minutes discharge planning Discharge Home Medications: Active Scripts Active Reported Magnesium 250 Mg Tablet 250 Mg PO BID Vitamin B-12 (Cyanocobalamin (Vitamin B-12)) 1,000 Mcg Tablet 1,000 Mcg PO DAILY Zinc 50 Mg Tablet 50 Mg PO DAILY Hydrocodone-Acetamin 10-325 mg (Hydrocodone/Acetaminophen) 1 Each Tablet 1 Each PO Q6H PRN Prednisone 5 Mg Tablet 10 Mg PO DAILY TAKES 2 (5MG) TABS Furosemide 20 Mg Tablet 20 Mg PO DAILY Vitamin D3 (Cholecalciferol (Vitamin D3)) 25 Mcg Tablet 25 Mcg PO BID Calcium Carbonate 600 Mg Tablet 600 Mg PO BID Ropinirole HCl 2 Mg Tablet 2 Mg PO HS Losartan Potassium 50 Mg Tablet 25 Mg PO DAILY TAKES OF A 50MG Gabapentin 600 Mg Tablet 1,200 Mg PO HS TAKES 2 (600MG) TABS LAST FILLED 05-13-2021 #120/30 DAY SUPPLY Gabapentin 600 Mg Tablet 600 Mg PO 0700,1200 LAST FILLED 05-13-2021 #120/30 DAY SUPPLY Aspirin EC (Aspirin) 81 Mg Tablet.dr 81 Mg PO HS Crestor (Rosuvastatin Calcium) 10 Mg Tablet 10 Mg PO HS Flomax (Tamsulosin HCl) 0.4 Mg Cap 0.4 Mg PO DAILY Melatonin 10 Mg Capsule 10 Mg PO HS Fish Oil 1,000 mg Capsule (Carmel 3 Polyunsat Fatty Acids) 1,000 Mg Cap 1,000 Mg PO DAILY One Daily Men's 50+ Tablet (Mv,Minerals/FA/Lycopene/Ginkgo) 1 Each Tablet 1 Tab PO DAILY Bystolic (Nebivolol HCl) 10 Mg Tab 10 Mg PO HS Metaxalone 800 Mg Tablet 800 Mg PO BID LAST FILLED 05-17-2021 #60/30 DAY SUPPLY Levocetirizine Dihydrochloride 5 Mg Tablet 5 Mg PO HS Amlodipine Besylate 5 Mg Tablet 5 Mg PO DAILY Potassium Chloride 10 Meq Capsule.er 10 Meq PO BID LAST FILLED 05-22-2021 #60/30 DAY SUPPLY Cyclobenzaprine HCl 10 Mg Tablet 10 Mg PO HS Tramadol HCl 50 Mg Tablet 50 Mg PO QID PRN Finasteride 5 Mg Tablet 5 Mg PO DAILY LAST FILLED 05-17-2021 #30/ DAY SUPPLY Instructions to patient/family Please see electronic discharge instructions given to patient. Clinical Quality Measures AMI/AHF: ASA po Prior to arrival: No Problem Qualifiers (1) HTN (hypertension): Hypertension type: primary hypertension Qualified Codes: I10 - Essential (primary) hypertension (2) Coronary artery disease without angina pectoris: Coronary Disease-Associated Artery/Lesion type: unspecified vessel or lesion type [place] vs. transplanted heart: [place] heart Qualified Codes: I25.10 - Atherosclerotic heart disease of [place] coronary artery without angina pectoris FLORIAN ANDERSON MD Jun 30, 2021 08:54
--- NOTE | 2021-06-30 08:56 | Discharge Inst-Simple/Standard ---
Discharge Inst-Standard Patient Instructions/Follow Up Plan of Care/Instructions/FU: Please continue take your medications as written. Please follow-up with Dr. Morales and Dr. Cassidy to follow-up this hospital stay. Please keep your appointment with the neurosurgeon as already scheduled for your back issues, Activity as Tolerated: Yes Discharge Diet: Low Sodium Diet, Cardiac Diet Return to The Hospital For: Chest pain, shortness of breath, abdominal pain, worsening lower extremity swelling, fever, weakness, if you feel you are getting worse. FLORIAN ANDERSON MD Jun 30, 2021 08:56
--- NOTE | 2021-06-30 09:58 | Cardiology Progress Note ---
Subjective Date Seen by Provider: Jun 30, 2021 Time Seen by Provider: 08:15 Subjective/Events-last exam Patient is sitting up in bed, denies any further episode of chest pain. Peripheral edema is improving. Objective-Cardiology Exam Last Set of Vital Signs Vital Signs 06/30/21 06/30/21 06/30/21 07:39 08:00 12:00 Temp 36.6 Pulse 71 Resp 18 B/P (MAP) 122/72 (89) Pulse Ox 96 O2 Delivery Room Air I&O Intake and Output 06/30/21 00:00 Intake Total 2250 ml Output Total 6000 ml Balance -3750 ml Intake Oral 2250 ml Output Urine Total 6000 ml # Voids 3 Daily Weight Change No General: Alert, Oriented X3, Cooperative HEENT: Atraumatic Neck: Supple Lungs: Clear to Auscultation, Normal Air Movement Heart: Regular Rate, Normal S1, Normal S2 Abdomen: Normal Bowel Sounds, Soft Extremities: Other (+2 edema BLE) Skin: No Rashes, No Significant Lesion Neuro: Normal Speech, Cranial Nerves 3-12 NL Psych/Mental Status: Mental Status NL, Mood NL Results Lab Laboratory Tests 06/30/21 08:00 A/P-Cardiology Admission Diagnosis Peripheral edema Coronary artery disease Hypertension Hyperlipidemia Assessment/Plan Chest pain, nonspecific etiology, resolved. Cardiac enzymes negative. EKG showing no acute ST changes. Will plan for stress test as outpatient. Peripheral edema, fluid overload, mildly due to chronic venous insufficiency. I will evaluate venous Doppler study and would consider formal venous study as an outpatient. Started on diuretics. Continue to monitor closely. BNP and cardiac enzymes were normal Hypertension, blood pressure much better controlled. Amlodipine was discontinued. Currently on Coreg 25mg BID, losartan 100mg daily and HCTZ 25mg. Coronary artery disease, mild per cardiac catheterization done in August 2018, had mildly elevated left ventricular end-diastolic pressure of 18 at that time. Hyperlipidemia, maintained on rosuvastatin. Continue to monitor Arthritis. Managed and followed by primary care physician Obesity, BMI 40, we discussed weight loss OK for discharge from cardiology standpoint. Will plan for stress test as outpatient and f/u in our office after. I discussed the management plan with Lashonda, discussed the management plan with Dr. Tristen Benoit for discharge and follow-up as an outpatient Planning to evaluate stress test as an outpatient Discharge medication were discussed. LASHONDA BROOKS Jun 30, 2021 09:58 ELIER LUGO MD Jun 30, 2021 15:09
[2021-06-30] MEDS ORDERED: HYDR25TA4 PO (10:50)
[2021-06-30] MEDS ORDERED: LOSA100T57 PO (10:50)
[2021-06-30] MEDS ORDERED: FURO20TA4 PO (10:50)
== END 2021-06-30 12:30 | disposition home or self-care (01) ==
LOC: EDUNIT# 19:11 → ER 19:13 → ICU 23:00
PROVIDERS: ADMIT Internal Medicine; ATTEND Internal Medicine
DX: R07.9 Chest pain, unspecified (principal); I25.10 Atherosclerotic heart disease of native coronary artery without angina pectoris; E78.2 Mixed hyperlipidemia; I10 Essential (primary) hypertension; R60.0 Localized edema; M19.90 Unspecified osteoarthritis, unspecified site; E66.9 Obesity, unspecified; G89.29 Other chronic pain; M54.9 Dorsalgia, unspecified; Z79.899 Other long term (current) drug therapy; Z79.82 Long term (current) use of aspirin; Z68.41 Body mass index [BMI] 40.0-44.9, adult; Z87.891 Personal history of nicotine dependence
CPT/HCPCS: 36415; 71045; 71275; 80048; 80053; 80061; 81000; 82150; 82550; 82553; 83690; 83735; 83874; 83880; 84443; 84484; 85025; 85379; 85610; 85730; 87636; 93005; 93041; 93306; 93970

== ENCOUNTER → 2021-07-12 | Outpatient (CLI) | payer OTHER ==
[~2021-07-12] VITALS: Ht 187 cm; Wt 127.0 kg
[~2021-07-12] MED LIST changes: +CATHETER FLUSH 10 ML SYR IVP PRN; +CHOL-34 PO; +CLC600T PO; +HYDR-3820 PO; +HYDR25TA4 PO; +LOSA100T57 PO; +MAGN250T31 PO; +REGADENOSON 0.4 MG/5 ML SYR (LEXISCAN) IV ONE; +ZINC50TA58 PO
[2021-07-12 09:07] VITALS: BP 157/79
--- NOTE | 2021-07-12 11:09 | Cardiology Stress Test Report ---
Stress Test Report Date of Procedure/Referring: Date of Procedure: Jul 12, 2021 Nancy Farris Admitting Physician Hunter Morales Jr,DO Indications: CP Baseline Heart Rate: 76 Baseline Blood Pressure: Blood Pressure Systolic: 157 Blood Pressure Diastolic: 79 Baseline Vitals Vital Signs Date Time Temp Pulse Resp B/P (MAP) Pulse Ox O2 Delivery O2 Flow Rate FiO2 07/12/21 09:07 76 157/79 (105) Baseline EKG: Baseline EKG: NSR Summary After explaining the procedure to the patient, he signed a consent and then brought to the stress nuclear laboratory. Patient received 0.4 mg Lexiscan for stress test, ECG, heart rate and blood pressure were monitored continuously. Resting and stress dose of radio tracer were injected, imaging was acquired and reviewed in short axis, horizontal long axis and vertical long axis views. TID: 1.04 SSS: 5 SDS: 1 EF: 62 1. Patient tolerated Lexiscan well 2. Occasional premature ventricular contractions and ventricular trigeminy was noted during test 3. Diaphragmatic attenuation with mild reversible ischemia involving the mid to apical anterolateral and inferolateral wall 4. Normal left ventricular size, EF 62% ELIER LUGO MD Jul 12, 2021 11:09
== END ==
LOC: CARD 08:45
PROVIDERS: ATTEND Physician Assistant
DX: R07.9 Chest pain, unspecified (principal)
CPT/HCPCS: 78452; 93017

== ENCOUNTER 2021-08-02 10:43 | Observation (INO) | payer OTHER ==
[~2021-08-02] VITALS: Ht 187 cm; Wt 131.0 kg
[2021-08-02] VITALS (19 sets, daily range): BP systolic 112–156; BP diastolic 65–120
[~2021-08-02 10:43] MED LIST changes: -CATHETER FLUSH 10 ML SYR IVP PRN; -REGADENOSON 0.4 MG/5 ML SYR (LEXISCAN) IV ONE
--- NOTE | 2021-08-02 11:23 | ED Chest Pain ---
General Chief Complaint: Chest Pain Stated Complaint: CHEST PAIN / SOA Nursing Triage Note: PT AMB TO RM 4 PT CO OF CHEST PAIN RADIATING DOWN L ARM AND SOA, PT STATES STARTED MONDAY DESCRIBES PRESSURE. PT HAS LOWER EXT EDEMA THAT HAS INCREASED OVER PAST FEW DAYS. PT HAS HEART HX AND SEES DR CASSIDY. Source: patient, spouse Exam Limitations: no limitations History of Present Illness Date Seen by Provider: Aug 02, 2021 Time Seen by Provider: 11:06 Initial Comments Patient ER by private conveyance chief complaint of chest pressure 7 out of 10 progressively mounting since Monday, 3 days ago. He is not been feeling well for the past week getting more winded feeling more weight gain from fluids and swelling in his legs and now into his abdomen. He recently had his amlodipine stopped his losartan was increased from 25 to 100 mg daily and his Lasix was increased from 20 mg to 40 mg twice daily but he does not feel like he is putting out any urine. He has a history of coronary disease but no interventions or stents other than a heart cath by Dr. Cassidy. Primary care by Dr. Muñiz and in [place]. No cough fevers or chills. Not on a blood thinner. He has a history of hypertension hyperlipidemia and has not smoked in many decades. He is not diabetic. Allergies and Home Medications Allergies Coded Allergies: hydromorphone HCl (Unverified Allergy, Intermediate, ITCHING, HAS RECEIVED HYDROCODONE IN THE PAST, 11/16/15) fentanyl (Unverified Allergy, Mild, 12/30/08) nalbuphine (Unverified Allergy, Mild, RECEIVED MORPHINE IN OR, 11/16/15) LIV Inhibitors (Verified Allergy, Unknown, 06/28/21) Patient Home Medication List Home Medication List Reviewed: Yes Aspirin (Aspirin EC) 81 Mg Tablet., 81 MG PO HS, (Reported) Entered as Reported by: ANIRUDH PHILIPPE on 09/14/18 0851 Calcium Carbonate (Calcium Carbonate) 600 Mg Tablet, 600 MG PO BID, (Reported) Entered as Reported by: STONE ROBIN on 06/29/21 1213 Cholecalciferol (Vitamin D3) (Vitamin D3) 25 Mcg Tablet, 25 MCG PO BID, (Reported) Entered as Reported by: STONE ROBIN on 06/29/21 1213 Cyanocobalamin (Vitamin B-12) (Vitamin B-12) 1,000 Mcg Tablet, 1,000 MCG PO D BONITA, (Reported) Entered as Reported by: STONE ROBIN on 06/29/21 1213 Cyclobenzaprine HCl (Cyclobenzaprine HCl) 10 Mg Tablet, 10 MG PO HS, (Reported) Entered as Reported by: GABRIELLE SHELTON on 11/17/15 1052 Finasteride (Finasteride) 5 Mg Tablet, 5 MG PO DAILY, (Reported) Entered as Reported by: GABRIELLE SHELTON on 11/17/15 1052 Furosemide (Furosemide) 20 Mg Tablet, 20 MG PO BID Prescribed by: FLORIAN ANDERSON on 06/30/21 1050 Gabapentin (Gabapentin) 600 Mg Tablet, 600 MG PO 0700,1200, (Reported) Entered as Reported by: ANIRUDH PHILIPPE on 09/14/18 0851 Gabapentin (Gabapentin) 600 Mg Tablet, 1,200 MG PO HS, (Reported) Entered as Reported by: STONE ROBIN on 11/02/20 1046 Hydrochlorothiazide (Hydrochlorothiazide) 25 Mg Tablet, 25 MG PO DAILY Prescribed by: FLORIAN ANDERSON on 06/30/21 1050 Hydrocodone/Acetaminophen (Hydrocodone-Acetamin 10-325 mg) 1 Each Tablet, 1 EACH PO Q6H PRN for PAIN-MODERATE (5-7), (Reported) Entered as Reported by: STONE ROBIN on 06/29/21 1213 Levocetirizine Dihydrochloride (Levocetirizine Dihydrochloride) 5 Mg Tablet, 5 MG PO HS, (Reported) Entered as Reported by: GABRIELLE SHELTON on 11/17/15 1052 Losartan Potassium (Losartan Potassium) 100 Mg Tablet, 100 MG PO DAILY Prescribed by: FLORIAN ANDERSON on 06/30/21 1050 Magnesium (Magnesium) 250 Mg Tablet, 250 MG PO BID, (Reported) Entered as Reported by: STONE ROBIN on 06/29/21 1213 Melatonin (Melatonin) 10 Mg Capsule, 10 MG PO HS, (Reported) Entered as Reported by: ANIRUDH PHILIPPE on 09/14/18 0851 Metaxalone (Metaxalone) 800 Mg Tablet, 800 MG PO BID, (Reported) Entered as Reported by: GABRIELLE SHELTON on 11/17/15 1052 Mv,Minerals/FA/Lycopene/Ginkgo (One Daily Men's 50+ Tablet) 1 Each Tablet, 1 TAB PO DAILY, (Reported) Entered as Reported by: ANIRUDH PHILIPPE on 09/14/18 0851 Nebivolol HCl (Bystolic) 10 Mg Tab, 10 MG PO HS, (Reported) Entered as Reported by: GABRIELLE SHELTON on 11/17/15 1052 [place] 3 Polyunsat Fatty Acids (Fish Oil 1,000 mg Capsule) 1,000 Mg Cap, 1,000 MG PO DAILY, (Reported) Entered as Reported by: ANIRUDH PHILIPPE on 09/14/18 0851 Potassium Chloride (Potassium Chloride) 10 Meq Capsule.er, 10 MEQ PO BID, (Reported) Entered as Reported by: GABRIELLE SHELTON on 11/17/15 105 Prednisone (Prednisone) 5 Mg Tablet, 10 MG PO DAILY, (Reported) Entered as Reported by: STONE ROBIN on 06/29/21 1213 Ropinirole HCl (Ropinirole HCl) 2 Mg Tablet, 2 MG PO HS, (Reported) Entered as Reported by: STONE ROBIN on 11/02/20 1046 Rosuvastatin Calcium (Crestor) 10 Mg Tablet, 10 MG PO HS, (Reported) Entered as Reported by: ANIRUDH PHILIPPE on 09/14/18 0851 Tamsulosin HCl (Flomax) 0.4 Mg Cap, 0.4 MG PO DAILY, (Reported) Entered as Reported by: ANIRUDH PHILIPPE on 09/14/18 0851 Tramadol HCl (Tramadol HCl) 50 Mg Tablet, 50 MG PO QID PRN for PAIN-MODERATE (5-7), (Reported) Entered as Reported by: GABRIELLE SHELTON on 11/17/15 1052 Zinc (Zinc) 50 Mg Tablet, 50 MG PO DAILY, (Reported) Entered as Reported by: STONE ROBIN on 06/29/21 1213 Review of Systems Review of Systems Constitutional: No chills, No diaphoresis; weakness EENTM: No Blurred Vision, No Double Vision Respiratory: Denies Cough; Shortness of Air, SOA With Exertion Cardiovascular: See HPI, Chest Pain; Denies Edema, Denies Lightheadedness, Denies Palpitations, Denies Syncope Gastrointestinal: See HPI, Abdomen Distended; Denies Abdominal Pain Genitourinary: Denies Burning, Denies Discharge Musculoskeletal: No back pain, No joint pain; other (Bilateral pedal edema) All Other Systems Reviewed Negative Unless Noted: Yes Past Vifyfie-Nzyjtq-Dtnlec Hx Patient Social History Tobacco Use?: No Substance use?: No Alcohol Use?: No Pt feels they are or have been: No Immunizations Up To Date Tetanus Booster (TDap): Unknown Seasonal Allergies Seasonal Allergies: No Past Medical History Surgery/Hospitalization HX: CHF, HTN Surgeries: Yes Appendectomy, Cardiac, Gallbladder, Joint Replacement, Orthopedic Respiratory: Yes Sleep Apnea Currently Using CPAP: Yes Cardiac: Yes ("ENLARGED HEART" ) Chronic Edema/Swelling, High Cholesterol, Hypertension Neurological: No Reproductive Disorders: No Genitourinary: Yes Prostate Problems Gastrointestinal: Yes (PT REPORTS PEPTIC ULCER A TEEN; C. DIF 2015) Abdominal Hernia, Crohns Disease, C-Diff, Ulcer Musculoskeletal: Yes (CHRONIC BILATERAL LEG PAIN; CHRONIC NECK AND BACK PAIN ) Degenerate Disk Disease, Back Injury, Chronic Back Pain Endocrine: No HEENT: No (GLASSES) Cancer: No Psychosocial: No Integumentary: No Blood Disorders: No Adverse Reaction/Blood Tranf: No Family Medical History Unknown family medical history No Pertinent Family Hx SOCIAL HISTORY : -SMOKED A TEEN, NO SMOKING SINCE -ETOH--DENIES USE -DRUGS--DENIES USE PAST SURGICAL HISTORY: -APPENDECTOMY 10/[address] CATHERINE -LEFT HIP REPLACEMENT 2004 -BACK SURGERY X 2 IN 2003 -C-SPINE SURGERY 2003 -LEFT INGUINAL HERNIA REPAIR CHILD -CHOLECYSTECTOMY CARDIAC CATH [address] CASSIDY--ESSENTIALLY NORMAL -CARDIAC CATH 08/[address] CASSIDY: CONCLUSION: 1. Mild coronary artery disease, 40-50 percent proximal right coronary artery nonobstructive disease otherwise no significant obstructive disease 2. Normal left ventricular size and systolic function test and ejection fraction 60 percent 3. Normal aortic arch and great vessels of the neck Physical Exam Vital Signs Vital Signs - First Documented 08/02/21 10:50 Temp 36.4 Pulse 71 Resp 31 B/P (MAP) 118/81 (93) Pulse Ox 99 Capillary Refill : Less Than 3 Seconds Height, Weight, BMI Height: 6'2.00" Weight: 274lbs. 0.0oz. 124.369505jb; 37.00 BMI Method:Stated General Appearance: Mild Distress, Obese HEENT: PERRL/EOMI, Moist Mucous Membranes Neck: Full Range of Motion, Normal Inspection Respiratory: Lungs Clear, Normal Breath Sounds, No Accessory Muscle Use, No Respiratory Distress Cardiovascular: Regular Rate, Rhythm, Normal Peripheral Pulses Gastrointestinal: Normal Bowel Sounds, Non Tender, Soft Extremity: Non Tender, No Calf Tenderness, Pedal Edema (Bilateral 1-2+ pedal edema up to the lower abdomen) Neurologic/Psychiatric: Alert, Oriented x3 Skin: Normal Color, Warm/Dry Progress/Results/Core Measures Results/Orders Lab Results Laboratory Tests Test 08/02/21 10:55 Range/Units White Blood Count 10.0 4.3-11.0 10^3/uL Red Blood Count 4.99 4.30-5.52 10^6/uL Hemoglobin 13.3 13.3-17.7 g/dL Hematocrit 41 40-54 % Mean Corpuscular Volume 82 80-99 fL Mean Corpuscular Hemoglobin 27 25-34 pg Mean Corpuscular Hemoglobin Concent 32 32-36 g/dL Red Cell Distribution Width 14.5 10.0-14.5 % Platelet Count 266 130-400 10^3/uL Mean Platelet Volume 9.6 9.0-12.2 fL Immature Granulocyte % (Auto) 0 % Neutrophils (%) (Auto) 69 42-75 % Lymphocytes (%) (Auto) 19 12-44 % Monocytes (%) (Auto) 8 0-12 % Eosinophils (%) (Auto) 4 0-10 % Basophils (%) (Auto) 1 0-10 % Neutrophils # (Auto) 6.8 1.8-7.8 10^3/uL Lymphocytes # (Auto) 1.9 1.0-4.0 10^3/uL Monocytes # (Auto) 0.8 0.0-1.0 10^3/uL Eosinophils # (Auto) 0.4 H 0.0-0.3 10^3/uL Basophils # (Auto) 0.1 0.0-0.1 10^3/uL Immature Granulocyte # (Auto) 0.0 0.0-0.1 10^3/uL Prothrombin Time 13.8 12.2-14.7 SEC INR Comment 1.0 0.8-1.4 Activated Partial Thromboplast Time 30 24-35 SEC Sodium Level 143 135-145 MMOL/L Potassium Level 3.9 3.6-5.0 MMOL/L Chloride Level 105 98-107 MMOL/L Carbon Dioxide Level 24 21-32 MMOL/L Anion Gap 14 5-14 MMOL/L Blood Urea Nitrogen 19 H 7-18 MG/DL Creatinine 1.19 0.60-1.30 MG/DL Estimat Glomerular Filtration Rate 68 BUN/Creatinine Ratio 16 Glucose Level 112 H 70-105 MG/DL Calcium Level 9.5 8.5-10.1 MG/DL Corrected Calcium 9.3 8.5-10.1 MG/DL Magnesium Level 2.4 1.6-2.4 MG/DL Total Bilirubin 0.9 0.1-1.0 MG/DL Aspartate Amino Transf (AST/SGOT) 21 5-34 U/L Alanine Aminotransferase (ALT/SGPT) 19 0-55 U/L Alkaline Phosphatase 74 40-136 U/L Myoglobin 55.0 10.0-92.0 NG/ML Troponin I < 0.028 <0.028 NG/ML B-Type Natriuretic Peptide 93.4 <100.0 PG/ML Total Protein 7.5 6.4-8.2 GM/DL Albumin 4.2 3.2-4.5 GM/DL My Orders Orders - BRANDON HOLDEN Ekg Tracing (08/02/21 10:55) Continuous Ekg Monitoring (08/02/21 10:55) Cbc With Automated Diff (08/02/21 11:17) Magnesium (08/02/21 11:17) Chest 1 View, Ap/Pa Only (08/02/21 11:17) Comprehensive Metabolic Panel (08/02/21 11:17) Myoglobin Serum (08/02/21 11:17) Protime With Inr (08/02/21 11:17) Partial Thromboplastin Time (08/02/21 11:17) O2 (08/02/21 11:17) Lipid Panel (08/03/21 06:00) Ed Iv/Invasive Line Start (08/02/21 11:) Bnp Jose (08/02/21 11:17) Troponin I Jose (08/02/21 11:17) Nitroglycerin 0.4 Mg Btl 25's (Nitrostat (08/02/21 11:30) Aspirin Chewable Tablet (Baby Aspirin Ch (08/02/21 11:30) Medications Given in ED Current Medications Medications Dose Ordered Sig/Jerry Route Start Time Stop Time Status Last Admin Dose Admin Aspirin 324 mg ONCE ONCE PO 08/02/21 11:30 08/02/21 11:31 DC 08/02/21 11:41 324 MG Nitroglycerin 0.4 mg UD PRN SL 08/02/21 11:30 08/02/21 11:42 0.4 MG Vital Signs/I&O 08/02/21 10:50 Temp 36.4 Pulse 71 Resp 31 B/P (MAP) 118/81 (93) Pulse Ox 99 Blood Pressure Mean: 93 Progress Progress Note #1: Time: : Progress Note Given some aspirin nitro and work him up for heart failure versus unstable angina. Progress Note #2: Time: :34 Progress Note After 2 doses of nitroglycerin the patient's pain is significantly better, his blood pressure is down from the 140 systolic range to 116/83. He says his chest pressure is down to a 5 out of 10 compared to a 7 out of 10 when he arrived. He states he is comfortable and does not want anything else for it right now. Initial ECG Impression Date: Aug 02, 2021 Initial ECG Impression Time: 10:51 Initial ECG Rate: 74 Initial ECG Rhythm: Normal Sinus Initial ECG Intervals: Normal Initial ECG Impression: Normal Comment Normal sinus rhythm without clinically relevant ST elevation or depression Diagnostic Imaging Diagonstic Imaging: Xray Plain Films/CT/US/NM/MRI: chest Comments [facility], [place] NAME: DUONG RODRÍGUEZ [facility] REC#: [id number] PT STATUS: REG ER : 1955 PHYSICIAN: BRANDON HOLDEN MD ADMIT DATE: 08/02/21/ER Draft Date of Exam:08/02/21 CHEST 1 VIEW, AP/PA ONLY CLINICAL INDICATION: Patient complains of chest pain radiating down the left arm with shortness of air. EXAM: Portable chest x-ray, upright view. COMPARISON: Chest x-ray dated 06/28/2021. FINDINGS: Lungs/pleura: The lungs are clear. There is no pneumothorax. There is no pleural effusion. Mediastinum: Unremarkable. Pulmonary vasculature: Unremarkable. Heart: Unremarkable. Bones/extrathoracic soft tissue: There are degenerative spurs involving the thoracic spine. IMPRESSION: There is no radiographic evidence of acute cardiopulmonary process. Dictated on workstation # [id number] Dict: 08/02/21 1153 Trans: 08/02/21 1155 [id number] Interpreted by: CADEN WEBB MD Electronically signed by: Reviewed: Reviewed by Me Departure Communication (Admissions) Time/Spoke to Admitting Phy: 12:41 Dr. Solorio agrees to observe the patient n.p.o. at midnight and consult cardiology. Time/Spoke to Consulting Phy: 12:40 Discussed the case with Dr. Cassidy and he agrees with observation. He is okay with another dose of nitroglycerin. Impression Primary Impression: ACS (acute coronary syndrome) Additional Impressions: Chest pressure Dependent edema Disposition: ADMITTED INPATIENT Condition: Stable Admissions Decision to Admit Reason: Admit from ER (General) Decision to Admit/Date: Aug 02, 2021 Time/Decision to Admit Time: 12:40 Departure-Patient Inst. Referrals: MORA MUÑIZ JR, DO (PCP/Family) Primary Care Physician BRANDON HOLDEN Aug 02, 2021 11:22
[2021-08-02 11:26] LABS: BASOPHILS # (AUTO) 0.1 10^3/uL (0.0-0.1); BASOPHILS % (AUTO) 1 % (0-10); EOSINOPHILS # (AUTO) 0.4 10^3/uL (0.0-0.3); EOSINOPHILS % (AUTO) 4 % (0-10); HEMATOCRIT 41 % (40-54); HEMOGLOBIN 13.3 g/dL (13.3-17.7); LYMPHOCYTES # (AUTO) 1.9 10^3/uL (1.0-4.0); LYMPHOCYTES % (AUTO) 19 % (12-44); MEAN CORPUSCULAR HEMOGLOBIN 27 pg (25-34); MEAN CORPUSCULAR HGB CONC 32 g/dL (32-36); MEAN CORPUSCULAR VOLUME 82 fL (80-99); MEAN PLATELET VOLUME 9.6 fL (9.0-12.2); MONOCYTES # (AUTO) 0.8 10^3/uL (0.0-1.0); MONOCYTES % (AUTO) 8 % (0-12); NEUTROPHILS # (AUTO) 6.8 10^3/uL (1.8-7.8); NEUTROPHILS % (AUTO) 69 % (42-75); PLATELET COUNT 266 10^3/uL (130-400)
[2021-08-02 11:29] LABS: ALBUMIN 4.2 GM/DL (3.2-4.5); POTASSIUM 3.9 MMOL/L (3.6-5.0)
[2021-08-02 11:30] LABS: CALCIUM 9.5 MG/DL (8.5-10.1)
[2021-08-02] MEDS ORDERED: ASPIRIN 81 MG CHEW (CHILDREN'S ASA) PO ONE (11:30)
[2021-08-02] MEDS ORDERED: NITROGLYCERIN 0.4 MG SL TABS BTL 25'S SL PRN ×2 (11:30→14:00)
[2021-08-02 11:31] LABS: PROTHROMBIN TIME PATIENT 13.8 SEC (12.2-14.7)
[2021-08-02 11:32] LABS: TOTAL PROTEIN 7.5 GM/DL (6.4-8.2)
[2021-08-02 11:33] LABS: BILIRUBIN,TOTAL 0.9 MG/DL (0.1-1.0)
[2021-08-02 11:35] LABS: CREATININE SERUM 1.19 MG/DL (0.60-1.30)
[2021-08-02 11:38] LABS: MAGNESIUM 2.4 MG/DL (1.6-2.4)
--- NOTE | 2021-08-02 11:56 | Diagnostic Imaging Report ---
CLINICAL INDICATION: Patient complains of chest pain radiating down the left arm with shortness of air. EXAM: Portable chest x-ray, upright view. COMPARISON: Chest x-ray dated 06/28/2021. FINDINGS: Lungs/pleura: The lungs are clear. There is no pneumothorax. There is no pleural effusion. Mediastinum: Unremarkable. Pulmonary vasculature: Unremarkable. Heart: Unremarkable. Bones/extrathoracic soft tissue: There are degenerative spurs involving the thoracic spine. IMPRESSION: There is no radiographic evidence of acute cardiopulmonary process. Dictated by: Dictated on workstation # [id number]
[2021-08-02] MEDS ORDERED: CATHETER FLUSH 10 ML SYR IVP PRN (13:45)
[2021-08-02] MEDS ORDERED: REGADENOSON 0.4 MG/5 ML SYR (LEXISCAN) IV ONE (13:45)
[2021-08-02] MEDS ORDERED: ONDANSETRON 4 MG/2 ML (SDV) Z0FRAN IV PRN (13:45)
[2021-08-02] MEDS ORDERED: ACETAMINOPHEN 325 MG TABLET PO PRN (13:45)
[2021-08-02] MEDS ORDERED: morphine INJ 4 MG/ML 1 ML (VIAL/SYRINGE) IV PRN (14:00)
[2021-08-02] MEDS ORDERED: LOSA100T57 PO (14:42)
[2021-08-02] MEDS ORDERED: FURO20TA4 PO (14:42)
[2021-08-02] MEDS ORDERED: ASCO500T75 PO (14:42)
[2021-08-02] MEDS ORDERED: HYDR25TA4 PO (14:42)
[2021-08-02] MEDS ORDERED: MAGN500T PO (14:42)
[2021-08-02] MEDS ORDERED: NS IV 1000 ML 1,000 ML ONE (15:04)
[2021-08-02] MEDS ORDERED: HEParin (CATH LAB) 2,000 ML IV ONE (15:04)
[2021-08-02] MEDS ORDERED: LIDOCAINE 1% INJ 50 ML (XYLOCAINE) VIAL ONE (15:04)
[2021-08-02] MEDS ORDERED: VERAPAMIL 5 MG/2 ML (CALAN) VIAL IV ONE (15:16)
[2021-08-02] MEDS ORDERED: MIDAZOLAM 5 MG/5 ML (VERSED) VIAL ONE (15:16)
[2021-08-02] MEDS ORDERED: NITRO DRIP 25000 MCG/D5W 0 ML IV ONE (15:16)
[2021-08-02] MEDS ORDERED: HEParin 1000 UNIT/ML (10ML VIAL) FOR BOLUS ONE (15:16)
[2021-08-02] MEDS ORDERED: RT-ALBUTEROL SULF 2.5 MG/3 ML PRE-MIX VIAL INH PRN (15:45)
[2021-08-02] MEDS ORDERED: PATIENT MAY USE OWN MEDS, ALL PO SCH (16:30)
--- NOTE | 2021-08-02 16:32 | Conscious Sedation/ASA ---
Conscious Sedation Pre-Proced Time 15:00 ASA Score 3 For ASA 3 and 4: Consider anesthesia and medical clearance. Also, for patients with a history of failed moderate sedation consider anesthesia. Airway Lungs Heart ASA score ASA 1: a normal healthy patient ASA 2: a patient with a mild systemic disease (mid diabetes, controlled hypertension, obesity ASA 3: a patient with a severe systemic disease that limits activity (angina, COPD, prior Myocardial infarction) ASA 4: a patient with an incapacitating disease that is a constant threat to life (CHF, renal failure) ASA 5: a moribund patient not expected to survive 24 hrs. (ruptured aneurysm) ASA 6: a declared brain- patient whose organs are being harvested. For emergent operations, add the letter E after the classification Mallampati Classification Grade 3 Sedation Plan Analgesia, Amnesia, Plan communicated to team members, Discussed options with patient/fam, Discussed risks with patient/fam The patient is an appropriate candidate to undergo the planned procedure, sedation, and anesthesia. The patient immediately re-assessed prior to indication. ELIER LUGO MD Aug 02, 2021 16:32
--- NOTE | 2021-08-02 16:39 | Consultation-Cardiology ---
HPI-Cardiology Cardiology Consultation Date of Consultation 08/02/21 Date of Admission Time Seen by Provider: 15:00 Indication: Chest pain HPI 65-year-old gentleman with history of mild coronary artery disease, hypertension hyperlipidemia. Patient had borderline stress test in June 2021. We decided with conservative management due to his known mild coronary artery disease from 2018. We discussed proceeding with a cardiac catheterization if he becomes symptomatic. He came into the emergency room for increasing chest pain on exertion. Worsening today, pedal edema, dyspnea on exertion. Cardiac enzymes were negative. Due to his abnormal stress test I decided to proceed with cardiac catheterization Home Medications & Allergies Allergies: Coded Allergies: hydromorphone HCl (Unverified Allergy, Intermediate, ITCHING, HAS RECEIVED HYDROCODONE IN THE PAST, 11/16/15) fentanyl (Unverified Allergy, Mild, 12/30/08) nalbuphine (Unverified Allergy, Mild, RECEIVED MORPHINE IN OR, 11/16/15) LIV Inhibitors (Verified Allergy, Unknown, 06/28/21) Home Medication List Reviewed: Yes [id number] Hx Patient Social History Marital Status: Employed/Student: employed Recent Hopitalizations: No Have you traveled recently?: No Alcohol Use?: No Immunizations Up To Date Tetanus Booster (TDap): Unknown Date of Pneumonia Vaccine: Apr 24, 2016 Date of Influenza Vaccine: Jan 29, 2021 Past Medical History Discussed below Family Medical History Significant Family History: No Pertinent Family Hx Family Medical Hx Noncontributory Family History: Unknown family medical history Review of Systems-General Review of Systems Constitutional: No chills, No diaphoresis; weakness EENTM: see HPI, no symptoms reported Respiratory: no symptoms reported, see HPI, dyspnea on exertion Cardiovascular: see HPI, chest pain, edema Gastrointestinal: no symptoms reported, see HPI Genitourinary: no symptoms reported, see HPI Musculoskeletal: No back pain, No joint pain; other (Bilateral pedal edema) Skin: no symptoms reported, see HPI Psychiatric/Neurological: No Symptoms Reported, See HPI All Other Systems Reviewed Negative Unless Noted: Yes Reviewed Test Results Reviewed Test Results Lab Laboratory Tests Test 08/02/21 10:55 Range/Units White Blood Count 10.0 4.3-11.0 10^3/uL Red Blood Count 4.99 4.30-5.52 10^6/uL Hemoglobin 13.3 13.3-17.7 g/dL Hematocrit 41 40-54 % Mean Corpuscular Volume 82 80-99 fL Mean Corpuscular Hemoglobin 27 25-34 pg Mean Corpuscular Hemoglobin Concent 32 32-36 g/dL Red Cell Distribution Width 14.5 10.0-14.5 % Platelet Count 266 130-400 10^3/uL Mean Platelet Volume 9.6 9.0-12.2 fL Immature Granulocyte % (Auto) 0 % Neutrophils (%) (Auto) 69 42-75 % Lymphocytes (%) (Auto) 19 12-44 % Monocytes (%) (Auto) 8 0-12 % Eosinophils (%) (Auto) 4 0-10 % Basophils (%) (Auto) 1 0-10 % Neutrophils # (Auto) 6.8 1.8-7.8 10^3/uL Lymphocytes # (Auto) 1.9 1.0-4.0 10^3/uL Monocytes # (Auto) 0.8 0.0-1.0 10^3/uL Eosinophils # (Auto) 0.4 H 0.0-0.3 10^3/uL Basophils # (Auto) 0.1 0.0-0.1 10^3/uL Immature Granulocyte # (Auto) 0.0 0.0-0.1 10^3/uL Prothrombin Time 13.8 12.2-14.7 SEC INR Comment 1.0 0.8-1.4 Activated Partial Thromboplast Time 30 24-35 SEC Sodium Level 143 135-145 MMOL/L Potassium Level 3.9 3.6-5.0 MMOL/L Chloride Level 105 98-107 MMOL/L Carbon Dioxide Level 24 21-32 MMOL/L Anion Gap 14 5-14 MMOL/L Blood Urea Nitrogen 19 H 7-18 MG/DL Creatinine 1.19 0.60-1.30 MG/DL Estimat Glomerular Filtration Rate 68 BUN/Creatinine Ratio 16 Glucose Level 112 H 70-105 MG/DL Calcium Level 9.5 8.5-10.1 MG/DL Corrected Calcium 9.3 8.5-10.1 MG/DL Magnesium Level 2.4 1.6-2.4 MG/DL Total Bilirubin 0.9 0.1-1.0 MG/DL Aspartate Amino Transf (AST/SGOT) 21 5-34 U/L Alanine Aminotransferase (ALT/SGPT) 19 0-55 U/L Alkaline Phosphatase 74 40-136 U/L Myoglobin 55.0 10.0-92.0 NG/ML Troponin I < 0.028 <0.028 NG/ML B-Type Natriuretic Peptide 93.4 <100.0 PG/ML Total Protein 7.5 6.4-8.2 GM/DL Albumin 4.2 3.2-4.5 GM/DL Physical Exam Physical Exam Vital Signs Vital Signs - First Documented 08/02/21 08/02/21 10:50 13:48 Temp 36.4 Pulse 71 Resp 31 B/P (MAP) 118/81 (93) Pulse Ox 99 O2 Delivery Room Air Capillary Refill : Less Than 3 Seconds Height, Weight, BMI Height: 6'2.00" Weight: 274lbs. 0.0oz. 124.639015jo; 37.00 BMI Method:Stated General Appearance: Mild Distress, Obese Eyes: Bilateral Eye Normal Inspection, Bilateral Eye PERRL, Bilateral Eye EOMI HEENT: PERRL/EOMI, Moist Mucous Membranes Neck: Full Range of Motion, Normal Inspection Respiratory: Lungs Clear, Normal Breath Sounds, No Accessory Muscle Use, No Respiratory Distress Cardiovascular: Regular Rate, Rhythm, Normal Peripheral Pulses Gastrointestinal: Normal Bowel Sounds, Non Tender, Soft Back: Normal Inspection, No CVA Tenderness, No Vertebral Tenderness Extremity: Non Tender, No Calf Tenderness, Pedal Edema (Bilateral 1-2+ pedal edema up to the lower abdomen) Neurologic/Psychiatric: Alert, Oriented x3 Skin: Normal Color, Warm/Dry Lymphatic: No Adenopathy A/P-Cardiology Admission Diagnosis Chest pain Coronary artery disease Peripheral edema Hypertension Hyperlipidemia Assessment/Plan Chest pain resembling angina, progressive pain over the past week. Had an abnormal stress test in June 2021. I proceeded with cardiac catheterization today showing mild disease nonobstructive disease Coronary artery disease, cardiac catheterization done in August 2018 showing mild coronary artery disease nonobstructive disease. Repeat cardiac catheterization was done on August 02, 2021 due to chest pain and abnormal stress test showing mild disease nonobstructive disease. Conservative management is recommended. Peripheral edema, worsening recently, having significant pedal edema up to his abdomen. Last echo showed normal LV function, left ventricular end-diastolic pressure was 18. I will start him on Lasix and evaluate tolerance and response 2D echo was done on June 29, 2021 showing normal left ventricular size with EF 55 to 60%, PA pressure 25 mmHg Hypertension, restart home medication monitor blood pressure Hyperlipidemia, maintained on rosuvastatin 10 mg daily BMI 45, we discussed weight loss Sleep apnea using CPAP Degenerative joint disease. Clinical Quality Measures AMI/AHF: ASA po Prior to arrival: ELIER Tapia MD Aug 02, 2021 16:38
--- NOTE | 2021-08-02 16:44 | Cardiac Cath Report ---
Cardiac Cath Report Physician (s)/Food Safety Field Specialist (s) Physician ELIER LUGO MD Pre-Procedure Diagnosis Pre-Procedure Diagnosis: coronary artery disease Post-Procedure Note Procedure Start Date: Aug 02, 2021 Name of Procedure: Left heart catheterization Left ventriculogram Aortic arch angiogram Findings/Procedure Note PROCEDURE NOTE: 65-year-old gentleman with abnormal stress test, admitted with acute chest pain, brought for cardiac catheterization possible PTCA. After explaining the procedure to the patient, all pros and cons were explained, all questions were answered. The patient signed the consent and then he was placed on the cardiac catheterization laboratory. Groin was prepped SL fashion local anesthesia was used. Sheath placed in the right femoral artery. Kimberlyn right and left catheter were used to access the coronary system. Pigtail was used to access the left ventricular cavity. Left ventriculogram was done Aortic arch angiogram was done At the end of the procedure the sheath was removed. Closure device FINDINGS: Hemodynamics LV 132/15, end-diastolic pressure of 15 Aorta 131/72 mean of 95 ANATOMY: Left Main is free of obstructive disease Left Anterior Descending has mild disease nonobstructive disease Left Circumflex has mild disease nonobstructive disease Right Coronary Artery has mild disease nonobstructive disease LV Gram was done showing normal left ventricular size and systolic function estimate ejection fraction 60% Aorta evaluation showed slightly prominent aortic arch and ascending aorta, no dissection or aneurysm, tortuous brachiocephalic artery and left carotid, nonobstructive disease normal left subclavian CONCLUSION: 1. Mild coronary artery disease nonobstructive disease 2. Normal left ventricular size and systolic function estimate ejection fraction 60% 3. Slightly prominent aortic arch and ascending aorta with slightly tortuous neck arteries DISCUSSION AND RECOMMENDATION: Medical therapy is recommended no intervention is needed Anesthesia Type: Conscious Sedation Estimated blood loss (mL): 15 ml Contrast Amount: 56 ml Total Radiation Dose: 585 mGy Post-Procedure Diagnosis Post-operative diagnosis: Chest pain Coronary artery disease Peripheral edema Hypertension ELIER LUGO MD Aug 02, 2021 16:44
[2021-08-02] MEDS: NS IV 1000 ML 1,000 ML IV SCH (16:50)
[2021-08-02] MEDS: FUROSEMIDE 40 MG/4 ML INJ (LASIX) IVP SCH (17:13)
[2021-08-02] MEDS ORDERED: GABAPENTIN 400 MG (NEURONTIN) CAP PO SCH (21:00)
[2021-08-02] MEDS ORDERED: ROSUVASTATIN 10 MG (CRESTOR) TABLET PO SCH (21:00)
[2021-08-02] MEDS ORDERED: NON-FORMULARY MEDICATION 1 EA EA (Nebivolol HCl (Bystolic) 10 MG) PO SCH (21:00)
[2021-08-02] MEDS ORDERED: NON-FORMULARY MEDICATION 1 EA EA (Melatonin 10 MG) PO SCH (21:00)
[2021-08-02] MEDS ORDERED: rOPINIRole 1 MG (REQUIP) TABLET PO SCH (21:00)
[2021-08-02] MEDS ORDERED: TAMSULOSIN 0.4 MG (FLOMAX) CAP PO SCH (21:00)
[2021-08-02] MEDS ORDERED: MELATONIN 10 MG TABLET PO SCH ×2 (21:00)
[2021-08-02] MEDS: CATHETER FLUSH 10 ML SYR IVP SCH (21:29)
[2021-08-03] VITALS: BP 124/65
[2021-08-03] MEDS: NS IV 1000 ML 1,000 ML IV SCH (02:30)
[2021-08-03 04:00] VITALS: BP 103/67
[2021-08-03 05:15] LABS: BASOPHILS # (AUTO) 0.1 10^3/uL (0.0-0.1); BASOPHILS % (AUTO) 1 % (0-10); EOSINOPHILS # (AUTO) 0.4 10^3/uL (0.0-0.3); EOSINOPHILS % (AUTO) 4 % (0-10); HEMATOCRIT 39 % (40-54); HEMOGLOBIN 12.7 g/dL (13.3-17.7); LYMPHOCYTES # (AUTO) 1.8 10^3/uL (1.0-4.0); LYMPHOCYTES % (AUTO) 18 % (12-44); MEAN CORPUSCULAR HEMOGLOBIN 27 pg (25-34); MEAN CORPUSCULAR HGB CONC 33 g/dL (32-36); MEAN CORPUSCULAR VOLUME 82 fL (80-99); MEAN PLATELET VOLUME 9.5 fL (9.0-12.2); MONOCYTES # (AUTO) 0.9 10^3/uL (0.0-1.0); MONOCYTES % (AUTO) 9 % (0-12); NEUTROPHILS # (AUTO) 6.8 10^3/uL (1.8-7.8); NEUTROPHILS % (AUTO) 68 % (42-75); PLATELET COUNT 240 10^3/uL (130-400)
[2021-08-03 05:39] LABS: POTASSIUM 3.2 MMOL/L (3.6-5.0)
[2021-08-03 05:41] LABS: CALCIUM 8.9 MG/DL (8.5-10.1)
[2021-08-03 05:45] LABS: CREATININE SERUM 1.27 MG/DL (0.60-1.30)
[2021-08-03] MEDS ORDERED: KCL 20 MEQ TAB (K-DUR) PO SCH (06:00)
[2021-08-03] MEDS ORDERED: POTASSIUM CL 10MEQ/50ML IVPB 50 ML IV SCH (06:00)
[2021-08-03] MEDS ORDERED: MAGNESIUM 1 GM/100 ML IVPB 100 ML IV SCH (06:00)
[2021-08-03 06:10] LABS: PHOSPHORUS 4.6 MG/DL (2.3-4.7)
[2021-08-03 06:12] LABS: MAGNESIUM 2.3 MG/DL (1.6-2.4)
[2021-08-03] MEDS: CATHETER FLUSH 10 ML SYR IVP SCH (06:47)
[2021-08-03] MEDS: FUROSEMIDE 40 MG/4 ML INJ (LASIX) IVP SCH (06:56)
[2021-08-03 08:00] VITALS: BP 111/78
--- NOTE | 2021-08-03 08:00 | Cardiology Progress Note ---
Subjective Date Seen by Provider: Aug 03, 2021 Time Seen by Provider: 07:58 Subjective/Events-last exam Patient was seen at bedside, sitting in a chair, no new complaint. No chest pain, no shortness of breath. Still having mild edema Review of Systems General: No Chills, No Night Sweats, No Fatigue, No Malaise, No Appetite, No Other HEENT: No Head Aches, No Visual Changes, No Eye Pain, No Ear Pain, No Dysphasia, No Sinus Congestion, No Post Nasal Drip, No Sore Throat, No Other Pulmonary: No Dyspnea, No Cough, No Pleuritic Chest Pain, No Other Cardiovascular: Edema; No: Chest Pain, Palpitations, Orthopnea, Paroxysmal Noc. Dyspnea, Lt Headedness, Other Objective-Cardiology Exam Last Set of Vital Signs Vital Signs 08/03/21 04:00 Pulse 65 Resp 14 B/P (MAP) 103/67 (79) Pulse Ox 96 O2 Delivery NIV CPAP I&O Intake and Output 08/03/21 00:00 Intake Total 700 ml Output Total 1700 ml Balance -1000 ml Intake Oral 700 ml Output Urine Total 1700 ml General: Alert, Oriented X3, Cooperative HEENT: Atraumatic, PERRLA Neck: Supple, No JVD, No Thyromegaly Lungs: Clear to Auscultation, Normal Air Movement Heart: Regular Rate, Normal S1, Normal S2, No Murmurs Abdomen: Normal Bowel Sounds, Soft, No Tenderness, No Hepatosplenomegaly, No Masses Extremities: No Clubbing, No Cyanosis, Normal Pulses, No Tenderness/Swelling, Other (+1-2 pedal edema) Skin: No Rashes, No Breakdown, No Significant Lesion Neuro: Normal Gait, Normal Speech, Strength at 5/5 X4 Ext, Normal Tone, Sen sation Intact Psych/Mental Status: Mental Status NL, Mood NL Results Lab Laboratory Tests 08/02/21 10:55 08/03/21 04:50 A/P-Cardiology Admission Diagnosis Chest pain Coronary artery disease Peripheral edema Hypertension Hyperlipidemia Assessment/Plan Chest pain resembling angina, cardiac catheterization showed mild coronary artery disease nonobstructive disease Coronary artery disease, cardiac catheterization done in August 2018 showing mild coronary artery disease nonobstructive disease. Repeat cardiac catheterization was done on August 02, 2021 due to chest pain and abnormal stress test showing mild disease nonobstructive disease. Conservative management is recommended. Peripheral edema, worsening recently, responding well to diuretics. I will switch him to oral Lasix 40 mg twice daily and take an additional dose as needed 2D echo was done on June 29, 2021 showing normal left ventricular size with EF 55 to 60%, PA pressure 25 mmHg Hypertension, restart home medication monitor blood pressure Hyperlipidemia, maintained on rosuvastatin 10 mg daily BMI 45, we discussed weight loss Sleep apnea using CPAP Degenerative joint disease. Okay for discharge from cardiology standpoint ELIER LUGO MD Aug 03, 2021 08:00
[2021-08-03] MEDS: KCL 20 MEQ TAB (K-DUR) PO SCH ×2 (08:32→10:28)
[2021-08-03] MEDS ORDERED: TAMSULOSIN 0.4 MG (FLOMAX) CAP PO SCH (09:00)
[2021-08-03] MEDS ORDERED: ASPIRIN E.C. 81 MG (ECOTRIN) TAB PO SCH (09:00)
[2021-08-03] MEDS ORDERED: LOSARTAN 100 MG (COZAAR) TABLET PO SCH (09:00)
[2021-08-03] MEDS ORDERED: FURO40TA4 PO (09:43)
--- NOTE | 2021-08-03 10:53 | Discharge Summary ---
Discharge Summary Hospital Course Problems/Dx: (1) Chest pain Status: Acute (2) Coronary artery disease without angina pectoris Status: Acute (3) (HFpEF) heart failure with preserved ejection fraction Status: Acute Qualifiers: Qualified Codes: I50.33 - Acute on chronic diastolic (congestive) heart failure (4) Essential hypertension Status: Chronic (5) Mixed hyperlipidemia Status: Chronic (6) Morbid obesity Status: Chronic Hospital Course Date of Admission: Aug 02, 2021 at 12:41 Admission Diagnosis : Chest pain Family Physician/Provider: Hunter Morales Jr, DO Date of Discharge: 08/03/21 Discharge Diagnosis: Chest pain, CAD, acute on chronic HFpEF Hospital Course: Chay Hall is a 65 year old male with PMH HTN, HLD, LIANA, morbid obesity, HFpEF, who presented with chest pain. Cardiology was consulted and assisted with his care. He underwent a cardiac stress test which was abnormal. He then underwent a left heart catheterization which showed mild coronary artery disease with no intervention needed. His chest pain resolved. His diuretics were increased. He should follow up with cardiology, Dr. Cassidy, and his PCP, Dr. Morales. He was discharged home in stable condition. Labs and Pending Lab Test: Laboratory Tests 08/02/21 10:55: White Blood Count 10.0, Red Blood Count 4.99, Hemoglobin 13.3, Hematocrit 41, Mean Corpuscular Volume 82, Mean Corpuscular Hemoglobin 27, Mean Corpuscular H emoglobin Concent 32, Red Cell Distribution Width 14.5, Platelet Count 266, Mean Platelet Volume 9.6, Immature Granulocyte % (Auto) 0, Neutrophils (%) (Auto) 69, Lymphocytes (%) (Auto) 19, Monocytes (%) (Auto) 8, Eosinophils (%) (Auto) 4, Basophils (%) (Auto) 1, Neutrophils # (Auto) 6.8, Lymphocytes # (Auto) 1.9, Monocytes # (Auto) 0.8, Eosinophils # (Auto) 0.4H, Basophils # (Auto) 0.1, Immature Granulocyte # (Auto) 0.0, Prothrombin Time 13.8, INR Comment 1.0, Activated Partial Thromboplast Time 30, Sodium Level 143, Potassium Level 3.9, Chloride Level 105, Carbon Dioxide Level 24, Anion Gap 14, Blood Urea Nitrogen 19H, Creatinine 1.19, Estimat Glomerular Filtration Rate 68, BUN/Creatinine Ratio 16, Glucose Level 112H, Calcium Level 9.5, Corrected Calcium 9.3, Magnesium Level 2.4, Total Bilirubin 0.9, Aspartate Amino Transf (AST/SGOT) 21, Alanine Aminotransferase (ALT/SGPT) 19, Alkaline Phosphatase 74, Myoglobin 55.0, Troponin I < 0.028, B-Type Natriuretic Peptide 93.4, Total Protein 7.5, Albumin 4.2 08/02/21 17:02: Troponin I < 0.028 08/02/21 23:01: Troponin I < 0.028 08/03/21 04:50: White Blood Count 10.0, Red Blood Count 4.76, Hemoglobin 12.7L, Hematocrit 39L, Mean Corpuscular Volume 82, Mean Corpuscular Hemoglobin 27, Mean Corpuscular Hemoglobin Concent 33, Red Cell Distribution Width 14.5, Platelet Count 240, Mean Platelet Volume 9.5, Immature Granulocyte % (Auto) 1, Neutrophils (%) (Auto) 68, Lymphocytes (%) (Auto) 18, Monocytes (%) (Auto) 9, Eosinophils (%) (Auto) 4, Basophils (%) (Auto) 1, Neutrophils # (Auto) 6.8, Lymphocytes # (Auto) 1.8, Monocytes # (Auto) 0.9, Eosinophils # (Auto) 0.4H, Basophils # (Auto) 0.1, Immature Granulocyte # (Auto) 0.1, Sodium Level 141, Potassium Level 3.2L, Chloride Level 104, Carbon Dioxide Level 21, Anion Gap 16H, Blood Urea Nitrogen 23H, Creatinine 1.27, Estimat Glomerular Filtration Rate 63, BUN/Creatinine Ratio 18, Glucose Level 123H, Calcium Level 8.9, Magnesium Level 2.3, Phosphorus Level 4.6, Triglycerides Level 183H, Cholesterol Level 123, LDL Cholesterol Direct 75, VLDL Cholesterol 37, HDL Cholesterol 26L Home Meds Active Furosemide 40 Mg Tablet 40 Mg PO BID 30 Days Reported Vitamin C with Clara Hips (Ascorbic Acid) 500 Mg Tablet 500 Mg PO BID Losartan Potassium 100 Mg Tablet 100 Mg PO DAILY Hydrochlorothiazide 25 Mg Tablet 25 Mg PO DAILY Magnesium Oxide 500 Mg Tablet 500 Mg PO BID Vitamin B-12 (Cyanocobalamin (Vitamin B-12)) 1,000 Mcg Tablet 1,000 Mcg PO DAILY Zinc 50 Mg Tablet 50 Mg PO DAILY Hydrocodone-Acetamin 10-325 mg (Hydrocodone/Acetaminophen) 1 Each Tablet 1 Each PO Q6H PRN Vitamin D3 (Cholecalciferol (Vitamin D3)) 25 Mcg Tablet 25 Mcg PO BID Calcium Carbonate 600 Mg Tablet 600 Mg PO BID Ropinirole HCl 2 Mg Tablet 2 Mg PO HS Gabapentin 600 Mg Tablet 1,200 Mg PO HS TAKES 2 (600MG) TABS LAST FILLED 05-13-2021 #120/30 DAY SUPPLY Gabapentin 600 Mg Tablet 600 Mg PO 0700,1200 LAST FILLED 05-13-2021 #120/30 DAY SUPPLY Aspirin EC (Aspirin) 81 Mg Tablet.dr 81 Mg PO HS Crestor (Rosuvastatin Calcium) 10 Mg Tablet 10 Mg PO HS Flomax (Tamsulosin HCl) 0.4 Mg Cap 0.4 Mg PO DAILY Melatonin 10 Mg Capsule 10 Mg PO HS Fish Oil 1,000 mg Capsule ([place] 3 Polyunsat Fatty Acids) 1,000 Mg Cap 1,000 Mg PO DAILY One Daily Men's 50+ Tablet (Mv,Minerals/FA/Lycopene/Ginkgo) 1 Each Tablet 1 Tab PO DAILY Bystolic (Nebivolol HCl) 10 Mg Tab 10 Mg PO HS Metaxalone 800 Mg Tablet 800 Mg PO BID Levocetirizine Dihydrochloride 5 Mg Tablet 5 Mg PO HS Potassium Chloride 10 Meq Capsule.er 10 Meq PO BID Cyclobenzaprine HCl 10 Mg Tablet 10 Mg PO HS Tramadol HCl 50 Mg Tablet 50 Mg PO QID PRN Finasteride 5 Mg Tablet 5 Mg PO DAILY Assessment/Pt Instructions See instructions Discharge Planning: <30 minutes discharge planning Discharge Instructions Discharge Diet: Low Sodium Diet, Low Fat/Low Cholesterol Activity as Tolerated: Yes Consultations Cardiology Discharge Physical Examination Vital Signs Vital Signs Date Time Temp Pulse Resp B/P (MAP) Pulse Ox O2 Delivery O2 Flow Rate FiO2 08/03/21 09:17 98 Room Air 08/03/21 08:00 36.5 75 12 111/78 (89) General Appearance: No Apparent Distress, Obese HEENT: PERRL/EOMI, Pharynx Normal Respiratory: Lungs Clear, Normal Breath Sounds, No Respiratory Distress Cardiovascular: Regular Rate, Rhythm, No Murmur Gastrointestinal: Normal Bowel Sounds, Non Tender, Soft Extremity: Normal Inspection, Pedal Edema Skin: Normal Color, Warm/Dry Neurologic/Psychiatric: Alert, Oriented x3, No Motor/Sensory Deficits, Normal Mood/Affect Allergies: Coded Allergies: hydromorphone HCl (Unverified Allergy, Intermediate, ITCHING, HAS RECEIVED HYDROCODONE IN THE PAST, 11/16/15) fentanyl (Unverified Allergy, Mild, 12/30/08) nalbuphine (Unverified Allergy, Mild, RECEIVED MORPHINE IN OR, 11/16/15) LIV Inhibitors (Verified Allergy, Unknown, 06/28/21) Discharge Summary Date of Admission Aug 02, 2021 at 12:41 Date of Discharge Discharge Date: Aug 03, 2021 Discharge Time: 10:52 Admission Diagnosis Chest pain Consults/Procedures Consulations Cardiology Procedures Stress test, left heart cath Discharge Diagnosis (1) Chest pain Status: Acute (2) Coronary artery disease without angina pectoris Status: Acute (3) (HFpEF) heart failure with preserved ejection fraction Status: Acute Qualifiers: Qualified Codes: I50.33 - Acute on chronic diastolic (congestive) heart failure (4) Essential hypertension Status: Chronic (5) Mixed hyperlipidemia Status: Chronic (6) Morbid obesity Status: Chronic Clinical Quality Measures AMI/AHF: ASA po Prior to arrival: DAVE Moreno MD Aug 03, 2021 10:53
[2021-08-03] MEDS ORDERED: GABAPENTIN 300 MG (NEURONTIN) CAP PO SCH (12:00)
[2021-08-03] MEDS ORDERED: FUROSEMIDE 40 MG (LASIX) TAB PO SCH (17:00)
== END 2021-08-03 10:45 | disposition home or self-care (01) ==
LOC: EDUNIT# 10:43 → ER 10:44 → CSD 12:41
PROVIDERS: ADMIT Internal Medicine; ATTEND Internal Medicine
DX: I25.10 Atherosclerotic heart disease of native coronary artery without angina pectoris (principal); I11.0 Hypertensive heart disease with heart failure; I50.33 Acute on chronic diastolic (congestive) heart failure; E78.2 Mixed hyperlipidemia; E66.01 Morbid (severe) obesity due to excess calories; R60.0 Localized edema; G47.30 Sleep apnea, unspecified; M19.90 Unspecified osteoarthritis, unspecified site; Z68.42 Body mass index [BMI] 45.0-49.9, adult; Z99.89 Dependence on other enabling machines and devices; Z79.899 Other long term (current) drug therapy
CPT/HCPCS: 36221; 36415; 71045; 80048; 80053; 80061; 83735; 83874; 83880; 84100; 84484; 85025; 85610; 85730; 93005; 93458; 96374; 96376

== ENCOUNTER → 2021-08-20 | Outpatient (CLI) | payer OTHER ==
[~2021-08-20] MED LIST changes: +ASCO500T75 PO; +MAGN500T PO
[2021-08-20 10:19] LABS: BILIRUBIN,URINE NEGATIVE (NEGATIVE); CLARITY,URINE CLEAR; COLOR,URINE YELLOW; GLUCOSE, URINE (UA) NEGATIVE (NEGATIVE); KETONES,URINE NEGATIVE (NEGATIVE); LEUKOCYTE ESTERASE ,URINE NEGATIVE (NEGATIVE); NITRITE,URINE NEGATIVE (NEGATIVE); PH,URINE 6.5 (5-9); PROTEIN,URINE NEGATIVE (NEGATIVE)
[2021-08-20 10:36] LABS: BILIRUBIN,TOTAL 0.7 MG/DL (0.1-1.0); CALCIUM 9.6 MG/DL (8.5-10.1); CREATININE SERUM 1.24 MG/DL (0.60-1.30); POTASSIUM 3.5 MMOL/L (3.6-5.0); TOTAL PROTEIN 7.1 GM/DL (6.4-8.2)
[2021-08-20 10:36] LABS: CREATININE,URINE 94 MG/DL (30-125)
[2021-08-20 11:03] LABS: BACTERIA,URINE TRACE /HPF; SQUAMOUS EPITHELIAL CELL,UR RARE /HPF; WBC,URINE RARE /HPF
== END ==
LOC: LAB 08:49
PROVIDERS: ATTEND Internal Medicine Cardiovascular Disease
DX: I10 Essential (primary) hypertension (principal); I25.10 Atherosclerotic heart disease of native coronary artery without angina pectoris; E78.2 Mixed hyperlipidemia; I65.23 Occlusion and stenosis of bilateral carotid arteries; R60.9 Edema, unspecified
CPT/HCPCS: 36415; 80053; 81000; 82043; 82570

== ENCOUNTER 2022-02-02 13:21 | Emergency (ER) | payer MEDICARE ==
[~2022-02-02] VITALS: Ht 177 cm; Wt 133.0 kg
[~2022-02-02 13:21] MED LIST changes: +NF-CRES10T PO; -ROSU10TA22 PO
[2022-02-02] MEDS ORDERED: fentaNYL INJ 100 MCG/2 ML AMP IVP ONE (13:45)
[2022-02-02 14:04] LABS: BASOPHILS # (AUTO) 0.1 10^3/uL (0.0-0.1); BASOPHILS % (AUTO) 1 % (0-10); EOSINOPHILS # (AUTO) 0.4 10^3/uL (0.0-0.3); EOSINOPHILS % (AUTO) 4 % (0-10); HEMATOCRIT 38 % (40-54); LYMPHOCYTES # (AUTO) 1.9 10^3/uL (1.0-4.0); LYMPHOCYTES % (AUTO) 19 % (12-44); MEAN CORPUSCULAR HEMOGLOBIN 25 pg (25-34); MEAN CORPUSCULAR HGB CONC 31 g/dL (32-36); MEAN CORPUSCULAR VOLUME 81 fL (80-99); MEAN PLATELET VOLUME 8.9 fL (9.0-12.2); MONOCYTES # (AUTO) 0.7 10^3/uL (0.0-1.0); MONOCYTES % (AUTO) 7 % (0-12); NEUTROPHILS # (AUTO) 7.2 10^3/uL (1.8-7.8); NEUTROPHILS % (AUTO) 69 % (42-75); PLATELET COUNT 244 10^3/uL (130-400); WHITE BLOOD COUNT 10.4 10^3/uL (4.3-11.0)
[2022-02-02 14:22] LABS: POTASSIUM 3.6 MMOL/L (3.6-5.0)
--- NOTE | 2022-02-02 14:23 | Diagnostic Imaging Report ---
PROCEDURE: CT head and CT cervical spine without contrast. TECHNIQUE: Multiple contiguous axial images were obtained through the brain and cervical spine without the use of intravenous contrast. Sagittal and coronal reformations through the cervical spine were then performed. Auto Exposure Controls were utilized during the CT exam to meet ALARA standards for radiation dose reduction. INDICATION: Trauma/head and neck injuries. CT HEAD: FINDINGS: Ventricles and sulci are within normal limits for size. There is no intracranial hemorrhage identified. There is no abnormal mass effect or shift of midline structures. IMPRESSION: Unremarkable CT of the head. CT CERVICAL SPINE: FINDINGS: There is loss of normal cervical lordosis. Vertebral body heights and disc spaces are maintained. Prevertebral soft tissues are unremarkable, and there is no evidence of paraspinous hematoma. Disc space narrowing and marginal spurring are noted in the lower cervical regions. IMPRESSION: Loss of normal cervical lordosis which may be due to positioning or muscle spasm. There is, otherwise, no CT evidence of acute cervical spinal abnormality. Dictated by: Dictated on workstation # [id number]
[2022-02-02 14:24] LABS: CALCIUM 9.5 MG/DL (8.5-10.1)
[2022-02-02 14:25] LABS: TOTAL PROTEIN 7.6 GM/DL (6.4-8.2)
[2022-02-02 14:27] LABS: BILIRUBIN,TOTAL 0.6 MG/DL (0.1-1.0)
[2022-02-02 14:28] LABS: CREATININE SERUM 1.17 MG/DL (0.60-1.30)
--- NOTE | 2022-02-02 14:49 | Diagnostic Imaging Report ---
PROCEDURE: CT thoracic and lumbar spine without contrast. TECHNIQUE: Multiple contiguous axial images were obtained through the thoracic and lumbar spine without the use of intravenous contrast. Sagittal and coronal reformations were then performed. All CT scans use one or more of the following dose optimizing techniques: Automated exposure control, MA and/or KvP adjustment based on a patient size and exam type, or iterative reconstruction. INDICATION: Back pain. Trauma. COMPARISON: None. FINDINGS: Normal alignment. Vertebral body heights are preserved. No fractures. Diffuse [id number] spondylotic changes. No high-grade spinal canal stenosis is evident by soft tissue windows. Visualized pelvis is intact. [id number] atherosclerotic calcifications. Cholecystectomy. Dependent consolidation in the right lung base and probable small right pleural effusion are partially visualized. IMPRESSION: 1. No acute CT findings in the thoracic or lumbar spine. 2. Partially visualized dependent consolidation and possible small right pleural effusion in the right lung base. Dictated by: Dictated on workstation # [id number]
[2022-02-02] MEDS ORDERED: HYDROcodone/APAP 5 MG/325 MG (LORTAB) TAB PO ONE (15:00)
[2022-02-02] MEDS ORDERED: ACHD5005 PO (15:00)
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
[2022-02-02 15:17] VITALS: BP 144/98
[2022-02-02] MEDS ORDERED: ACHYD1T PO (15:34)
== END 2022-02-02 15:17 | disposition home or self-care (01) ==
LOC: EDUNIT# 13:21 → ER 13:23
DX: S09.90XA Unspecified injury of head, initial encounter (principal); S00.81XA Abrasion of other part of head, initial encounter; M25.551 Pain in right hip; M25.552 Pain in left hip; M54.50 Low back pain, unspecified; M54.2 Cervicalgia; G47.30 Sleep apnea, unspecified; Z96.642 Presence of left artificial hip joint; Z87.891 Personal history of nicotine dependence; Z87.39 Personal history of other diseases of the musculoskeletal system and connective tissue; Z99.89 Dependence on other enabling machines and devices; Z28.310 Unvaccinated for COVID-19; V68.5XXA Driver of heavy transport vehicle injured in noncollision transport accident in traffic accident, initial encounter; Y92.481 Parking lot as the place of occurrence of the external cause
CPT/HCPCS: 36415; 70450; 72125; 72128; 72131; 73523; 80053; 83690; 85025; 96374

== ENCOUNTER → 2022-02-09 | Outpatient (CLI) | payer MEDICARE ==
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
== END ==
LOC: RAD 07:26
PROVIDERS: ATTEND Internal Medicine
DX: S39.91XD Unspecified injury of abdomen, subsequent encounter (principal); N21.0 Calculus in bladder
CPT/HCPCS: 74176

== ENCOUNTER 2023-01-26 16:41 | Inpatient (IN) | payer MEDICARE ==
[~2023-01-26] VITALS: Ht 188 cm; Wt 56.3 kg
[~2023-01-26 16:41] MED LIST changes: -LOSA100T57 PO; +LOSA100T58 PO; -POTA10CA43 PO; +POTA10CA84 PO; +ROPI2TAB52 PO; -ROPI2TAB6 PO
[2023-01-26] MEDS ORDERED: NS IV 1000 ML 1,000 ML IV STA ×2 (16:44→17:34)
--- NOTE | 2023-01-26 16:55 | ED General ---
General Chief Complaint: Glucose Problems Stated Complaint: BLOOD SUGAR PROBLEMS Source of Information: Patient Exam Limitations: No Limitations History of Present Illness Date Seen by Provider: Jan 26, 2023 Time Seen by Provider: 16:51 Initial Comments Patient is a 67-year-old male with a history of hypertension, CHF, who presents to the ED for increased thirst over the past 3 to 4 days. States he has been drinking a lot more water than normal. He also reports frequent urination with urine incontinence. Patient states he feels weak and fatigued with body aches and pains. Patient [place] [facility] [place] had a blood sugar over 600 and sugar in his urine just right before arrival. No history of diabetes. Patient denies of any chest pain, abdominal pain, vomiting, diarrhea, headache, dizziness, fever, rash, chills ,unilateral muscle weakness or sensory changes. Patient reports chronic lower leg swelling. Patient was hypoxic to 88% on on room air. Patient Was placed on 2 L nasal cannula. Denies oxygen use at home Allergies and Home Medications Allergies Coded Allergies: hydromorphone HCl (Unverified Allergy, Intermediate, ITCHING, HAS RECEIVED HYDROCODONE IN THE PAST, 11/16/15) fentanyl (Unverified Allergy, Mild, 12/30/08) nalbuphine (Unverified Allergy, Mild, RECEIVED MORPHINE IN OR, 11/16/15) LIV Inhibitors (Verified Allergy, Unknown, 06/28/21) Patient Home Medication List Home Medication List Reviewed: Yes Ascorbic Acid (Vitamin C with Clara Hips) 500 Mg Tablet, 500 MG PO DAILY, (Reported) Entered as Reported by: STONE ROBIN on 08/02/21 1442 Last Action: Reviewed Aspirin (Aspirin EC) 81 Mg Tablet.dr, 81 MG PO HS, (Reported) Entered as Reported by: ANIRUDH PHILIPPE on 09/14/18 0851 Last Action: Reviewed Blood-Glucose Meter (Accu-Chek Guide Me Glucose Mtr) 1 Each Each, EACH , (DME) Prescribed by: HIEN EDMOND on 01/28/23 1143 Calcium Carbonate (Calcium Carbonate) 600 Mg Tablet, 600 MG PO BID, (Reported) Entered as Reported by: STONE ROBIN on 06/29/21 1213 Last Action: Reviewed Cholecalciferol (Vitamin D3) (Vitamin D3) 25 Mcg Tablet, 25 MCG PO BID, (Reported) Entered as Reported by: STONE ROBIN on 06/29/21 121 Last Action: Reviewed Cyanocobalamin (Vitamin B-12) (Vitamin B-12) 1,000 Mcg Tablet, 1,000 MCG PO BID, (Reported) Entered as Reported by: STONE ROBIN on 06/29/21 1213 Last Action: Reviewed Cyclobenzaprine HCl (Cyclobenzaprine HCl) 10 Mg Tablet, 10 MG PO HS, (Reported) Entered as Reported by: GABRIELLE SHELTON on 11/17/15 1052 Last Action: Reviewed Finasteride (Finasteride) 5 Mg Tablet, 5 MG PO DAILY, (Reported) Entered as Reported by: GABRIELLE SHELTON on 11/17/15 1052 Last Action: Reviewed Furosemide (Furosemide) 40 Mg Tablet, 40 MG PO BID Prescribed by: DAVE COPE on 08/03/21 0943 Last Action: Reviewed Gabapentin (Gabapentin) 600 Mg Tablet, 600 MG PO 0700,1200, (Reported) Entered as Reported by: ANIRUDH PHILIPPE on 09/14/18 0851 Last Action: Reviewed Gabapentin (Gabapentin) 600 Mg Tablet, 1,200 MG PO HS, (Reported) Entered as Reported by: STONE ROBIN on 11/02/20 1046 Last Action: Reviewed Hydrocodone/Acetaminophen (Hydrocodone-Acetamin 10-325 mg) 1 Each Tablet, 1 EACH PO Q6H PRN for PAIN-MODERATE (5-7), (Reported) Entered as Reported by: STONE ROBIN on 06/29/211212 Last Action: Last Taken Edited Insulin Aspart (Novolog) 100 Unit/Ml Cartridge, 10 UNITS SQ AC Prescribed by: JOSIE SANDOVAL on 01/28/23 104 Insulin Determir (Levemir) 100 Unit/Ml Soln, 20 UNIT SQ HS Prescribed by: JOSIE SANDOVAL on 01/28/23 104 Lancet/Gluc Strip/Needle/Gauze (Tempo Refill Kit (with Gauze)) 1 Each Kit, EACH MC, (DME) Prescribed by: HIEN EDMOND on 01/28/23 1143 Lancets/Blood Glucose Strips (Lancet 30G-Glucose Test Strip) 30 Gauge Combo..pkg, EACH MC, (DME) Prescribed by: HIEN EDMOND on 01/28/23 1143 Levocetirizine Dihydrochloride (Levocetirizine Dihydrochloride) 5 Mg Tablet, 5 MG PO HS, (Reported) Entered as Reported by: GABRIELLE SHELTON on 11/17/15 105 Last Action: Reviewed Losartan Potassium (Losartan Potassium) 100 Mg Tablet, 50 MG PO DAILY, (Reported) Entered as Reported by: STONE ROBIN on 08/02/21 144 Last Action: Reviewed Magnesium Oxide (Magnesium Oxide) 500 Mg Tablet, 500 MG PO DAILY, (Reported) Entered as Reported by: STONE ROBIN on 08/02/21 144 Last Action: Reviewed Melatonin (Melatonin) 10 Mg Capsule, 10 MG PO HS, (Reported) Entered as Reported by: ANIRUDH PHILIPPE on 09/14/18850 Last Action: Reviewed Metaxalone (Metaxalone) 800 Mg Tablet, 800 MG PO BID, (Reported) Entered as Reported by: GABRIELLE SHELTON on 11/17/151051 Last Action: Reviewed Metolazone (Metolazone) 5 Mg Tablet, 5 MG PO MON,WED,MON, (Reported) Entered as Reported by: DORA BARRAZA on 01/28/23 0846 Last Action: Reviewed Mv,Minerals/FA/Lycopene/Ginkgo (One Daily Men's 50+ Tablet) 1 Each Tablet, 1 TAB PO DAILY, (Reported) Entered as Reported by: ANIRUDH PHILIPPE on 09/14/18850 Last Action: Reviewed Nebivolol HCl (Bystolic) 10 Mg Tab, 10 MG PO HS, (Reported) Entered as Reported by: GABRIELLE SHELTON on 11/17/151051 Last Action: Reviewed [place] 3 Polyunsat Fatty Acids (Fish Oil 1,000 mg Capsule) 1,000 Mg Cap, 1,000 MG PO DAILY, (Reported) Entered as Reported by: ANIRUDH PHILIPPE on 09/14/18850 Last Action: Reviewed Potassium Chloride (Potassium Chloride) 10 Meq Capsule.er, 10 MEQ PO BID, (Reported) Entered as Reported by: GABRIELLE SHELTON on 11/17/151051 Last Action: Reviewed Ropinirole HCl (Ropinirole HCl) 2 Mg Tablet, 2 MG PO HS, (Reported) Entered as Reported by: STONE ROBIN on 11/02/20 104 Last Action: Reviewed Rosuvastatin Calcium (Crestor) 10 Mg Tablet, 10 MG PO HS, (Reported) Entered as Reported by: ANIRUDH PHILIPPE on 09/14/18850 Last Action: Reviewed Tamsulosin HCl (Flomax) 0.4 Mg Cap, 0.4 MG PO DAILY, (Reported) Entered as Reported by: ANIRUDH PHILIPPE on 09/14/18850 Last Action: Reviewed Tramadol HCl (Tramadol HCl) 50 Mg Tablet, 50 MG PO QID PRN for PAIN-MODERATE (5- 7), (Reported) Entered as Reported by: GABRIELLE SHELTON on 11/17/15 1052 Last Action: Last Taken Edited Zinc (Zinc) 50 Mg Tablet, 50 MG PO DAILY, (Reported) Entered as Reported by: STONE ROBIN on 06/29/21 1213 Last Action: Reviewed Discontinued Medications Hydrochlorothiazide (Hydrochlorothiazide) 25 Mg Tablet, 25 MG PO DAILY, (Reported) Discontinued Reason: No Longer Taking Entered as Reported by: STONE ROBIN on 08/02/21 1442 Last Action: Discontinued Hydrocodone Bit/Acetaminophen (HYDROcodone/APAP 10/325 TABLET) 1 Ea Tab, 1 EA PO Q6H Discontinued Reason: No Longer Taking Prescribed by: LOKESH CARDOZA MD on 02/02/22 1535 Last Action: Discontinued Review of Systems Review of Systems Constitutional: No chills, No diaphoresis; malaise, weakness EENTM: No ear pain, No blurred vision, No double vision, No tearing, No hoarseness, No mouth pain, No mouth swelling Respiratory: No cough, No dyspnea on exertion Cardiovascular: No chest pain Gastrointestinal: No abdominal pain, No diarrhea, No nausea, No vomiting Genitourinary: No decreased output, No discharge Musculoskeletal: No back pain, No joint pain Skin: No change in color, No change in hair/nails All Other Systems Reviewed Negative Unless Noted: Yes Past Kdimafa-Gayiqm-Myelvz Hx Patient Social History Tobacco Use?: No Substance use?: No Alcohol Use?: No Immunizations Up To Date Tetanus Booster (TDap): Unknown Seasonal Allergies Seasonal Allergies: No Past Medical History Surgery/Hospitalization HX: CHF, HTN, L HIP REPLACEMENT, BACK SURGERIES Surgeries: Yes Appendectomy, Cardiac, Gallbladder, Joint Replacement, Orthopedic Respiratory: Yes Sleep Apnea Currently Using CPAP: Yes Cardiac: Yes ("ENLARGED HEART" ) Chronic Edema/Swelling, High Cholesterol, Hypertension Neurological: No Reproductive Disorders: No Genitourinary: Yes Prostate Problems Gastrointestinal: Yes (PT REPORTS PEPTIC ULCER A TEEN; C. DIF 2015) Abdominal Hernia, Crohns Disease, C-Diff, Ulcer Musculoskeletal: Yes (CHRONIC BILATERAL LEG PAIN; CHRONIC NECK AND BACK PAIN ) Degenerate Disk Disease, Back Injury, Chronic Back Pain Endocrine: No HEENT: No (GLASSES) Cancer: No Psychosocial: No Integumentary: No Blood Disorders: No Adverse Reaction/Blood Tranf: No Family Medical History Unknown family medical history No Pertinent Family Hx SOCIAL HISTORY : -SMOKED A TEEN, NO SMOKING SINCE -ETOH--DENIES USE -DRUGS--DENIES USE PAST SURGICAL HISTORY: -APPENDECTOMY 10/[address] CATHERINE -LEFT HIP REPLACEMENT 2004 -BACK SURGERY X 2 IN 2003 -C-SPINE SURGERY 2003 -LEFT INGUINAL HERNIA REPAIR CHILD -CHOLECYSTECTOMY CARDIAC CATH [address] LUGO--ESSENTIALLY NORMAL -CARDIAC CATH 08/[address] LUGO: CONCLUSION: 1. Mild coronary artery disease, 40-50 percent proximal right coronary artery nonobstructive disease otherwise no significant obstructive disease 2. Normal left ventricular size and systolic function test and ejection fraction 60 percent 3. Normal aortic arch and great vessels of the neck Physical Exam Vital Signs Vital Signs - First Documented 01/26/23 01/26/23 16:48 16:57 Temp 37.0 Pulse 81 B/P (MAP) 149/88 (108) Pulse Ox 93 O2 Delivery Room Air O2 Flow Rate 2.00 Capillary Refill : Height, Weight, BMI Height: 6'2.00" Weight: 274lbs. 0.0oz. 124.029811qp; 42.00 BMI Method:Stated General Appearance: No Apparent Distress, WD/WN Eyes: Bilateral Eye Normal Inspection, Bilateral Eye PERRL, Bilateral Eye EOMI HEENT: PERRL/EOMI, TMs Normal, Normal ENT Inspection, Pharynx Normal Neck: Full Range of Motion, Normal Inspection, Non Tender, Supple Respiratory: Chest Non Tender, Lungs Clear, Normal Breath Sounds, No Accessory Muscle Use, No Respiratory Distress Cardiovascular: Regular Rate, Rhythm, No Edema, No Gallop, No JVD Gastrointestinal: Normal Bowel Sounds, No Organomegaly, No Pulsatile Mass, Non Tender Back: Normal Inspection, No CVA Tenderness, No Vertebral Tenderness Extremity: Normal Capillary Refill, Normal Inspection, Normal Range of Motion, Non Tender, No Calf Tenderness Neurologic/Psychiatric: Alert, Oriented x3, No Motor/Sensory Deficits, Normal Mood/Affect, 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 Norm as Tested Skin: Normal Color Progress/Results/Core Measures Suspected Sepsis SIRS Temperature: Pulse: Respiratory Rate: Laboratory Tests 01/26/23 16:54: White Blood Count 10.3 Blood Pressure / Mean: Laboratory Tests 01/26/23 16:54: Platelet Count 230, Total Bilirubin 1.0 Results/Orders Lab Results Laboratory Tests Test 01/26/23 16:54 01/26/23 17:20 01/26/23 18:07 Range/Units White Blood Count 10.3 4.3-11.0 10^3/uL Red Blood Count 5.40 4.30-5.52 10^6/uL Hemoglobin 14.2 13.3-17.7 g/dL Hematocrit 43 40-54 % Mean Corpuscular Volume 79 L 80-99 fL Mean Corpuscular Hemoglobin 26 25-34 pg Mean Corpuscular Hemoglobin Concent 33 32-36 g/dL Red Cell Distribution Width 15.6 H 10.0-14.5 % Platelet Count 230 130-400 10^3/uL Mean Platelet Volume 9.8 9.0-12.2 fL Immature Granulocyte % (Auto) 0 % Neutrophils (%) (Auto) 74 42-75 % Lymphocytes (%) (Auto) 18 12-44 % Monocytes (%) (Auto) 6 0-12 % Eosinophils (%) (Auto) 2 0-10 % Basophils (%) (Auto) 1 0-10 % Neutrophils # (Auto) 7.6 1.8-7.8 10^3/uL Lymphocytes # (Auto) 1.8 1.0-4.0 10^3/uL Monocytes # (Auto) 0.6 0.0-1.0 10^3/uL Eosinophils # (Auto) 0.2 0.0-0.3 10^3/uL Basophils # (Auto) 0.1 0.0-0.1 10^3/uL Immature Granulocyte # (Auto) 0.0 0.0-0.1 10^3/uL Venous Blood pH 7.40 7.31-7.41 Venous Blood Partial Pressure CO2 53 H 40-52 MMHG Venous Blood HCO3 32 H 22-28 MMOL/L Sodium Level 128 L 135-145 MMOL/L Potassium Level 3.2 L 3.6-5.0 MMOL/L Chloride Level 84 L 98-107 MMOL/L Carbon Dioxide Level 26 21-32 MMOL/L Anion Gap 18 H 5-14 MMOL/L Blood Urea Nitrogen 45 H 7-18 MG/DL Creatinine 2.47 H 0.60-1.30 MG/DL Estimat Glomerular Filtration Rate 28 BUN/Creatinine Ratio 18 Glucose Level 766 *H 70-105 MG/DL Calcium Level 10.2 H 8.5-10.1 MG/DL Corrected Calcium 9.8 8.5-10.1 MG/DL Magnesium Level 2.6 H 1.6-2.4 MG/DL Total Bilirubin 1.0 0.1-1.0 MG/DL Aspartate Amino Transf (AST/SGOT) 19 5-34 U/L Alanine Aminotransferase (ALT/SGPT) 25 0-55 U/L Alkaline Phosphatase 126 40-136 U/L Troponin I < 0.028 <0.028 NG/ML B-Type Natriuretic Peptide 23.3 <100.0 PG/ML Total Protein 8.6 H 6.4-8.2 GM/DL Albumin 4.5 3.2-4.5 GM/DL Lipase 101 H 8-78 U/L Beta-Hydroxybutyrate (Chem panel) 0.23 0.00-0.27 MMOL/L Influenza Type A (RT-PCR) Not Detected Not Detecte Influenza Type B (RT-PCR) Not Detected Not Detecte SARS-CoV-2 RNA (RT-PCR) Not Detected Not Detecte Urine Color YELLOW Urine Clarity CLEAR Urine pH 6.5 5-9 Urine Specific [place] 1.015 L 1.016-1.022 Urine Protein NEGATIVE NEGATIVE Urine Glucose (UA) 3+ H NEGATIVE Urine Ketones NEGATIVE NEGATIVE Urine Nitrite NEGATIVE NEGATIVE Urine Bilirubin NEGATIVE NEGATIVE Urine Urobilinogen 0.2 < = 1.0 MG/DL Urine Leukocyte Esterase NEGATIVE NEGATIVE Urine RBC (Auto) NEGATIVE NEGATIVE Urine RBC NONE /HPF Urine WBC NONE /HPF Urine Squamous Epithelial Cells NONE /HPF Urine Crystals NONE /LPF Urine Bacteria TRACE /HPF Urine Casts NONE /LPF Urine Mucus NEGATIVE /LPF Urine Culture Indicated NO My Orders Orders - SHIELA SORIANO Cbc And Automated Diff (01/26/23 16:44) Comprehensive Metabolic Panel (01/26/23 16:44) Beta Hydroxybutyrate (01/26/23 16:44) Urinalysis (01/26/23 16:44) Venous Blood Gas (01/26/23 16:44) Lipase (01/26/23 16:44) Ns Iv 1000 Ml (Ns Iv 1000 Ml) (01/26/23 16:44) Chest 1 View, Ap/Pa Only (01/26/23 17:13) Covid 19 Inhouse Test (01/26/23 17:16) Influenza A And B By Pcr (01/26/23 17:16) Insulin (Regular) Per Unit (Insulin (Reg (01/26/23 17:30) Ekg Tracing (01/26/23:23) Troponin I Jose (01/26/23:23) Bnp [place] (01/26/23:23) Magnesium (01/26/23 17:30) Potassium Chloride (Tablet) (Potassium C (01/26/23 17:45) Ns Iv 1000 Ml (Ns Iv 1000 Ml) (01/26/23 17:34) Lactated Ringers 1,000 Ml (Lactated Ring (01/26/23 17:37) Lidocaine 2% (Urojet) (Lidocaine 2% (Uro (01/26/23 18:00) Ed Admission (Communication) (01/26/23 18:04) Code/Resuscitation (01/26/23 18:05) Medications Given in ED Vital Signs/I&O 01/26/23 01/26/23 16:48 16:57 Temp 37.0 Pulse 81 B/P (MAP) 149/88 (108) Pulse Ox 93 O2 Delivery Room Air Nasal Cannula O2 Flow Rate 2.00 Capillary Refill : ECG Comment Sinus rhythm, nonspecific T wave abnormality, 72 bpm, QRS duration 98 MS, QTc 429 MS. Departure Communication (PCP) Patient is a 67-year-old male with a history of cardiomyopathy, hypertension presents to ED with frequent urination weakness fatigue increased thirst. Was seen [place] [facility] [place] had abnormally high blood sugar. Patient Was sent to the ED for further evaluation. Differential diagnosis HHS, DKA, UTI, CHF, ACS. Patient recent cardiac work-up was performed last year in July. Showed mild nonobstructive coronary artery disease with cardiac cath. Had a echo with ejection fraction of 55 to 60%. He reports chronic lower leg swelling. History of back surgery. Patient has been urinating himself. CBC, CMP, beta hydroxybutyrate, VBG, urinalysis, cardiac work-up was initiated. CBC was grossly unremarkable. Chemistry showed sodium 128, chloride 84, potassium of 3.2, acute kidney injury with a creatinine 2.47, GFR 28. Magnesium 2.6. Troponin negative. COVID influenza negative. Blood sugar 766. Anion gap 18. Normal beta hydroxybutyrate. VBG showed pH of 7.40. Bicarb 32. Patient was slightly hypotensive. EKG was obtained which showed sinus rhythm at 72 bpm. Patient received oral potassium 20 ml equivalent. Patient was hypoxic 88% on room air. Patient Was placed on 2 L nasal cannula. Denies any chest pain, shortness of breath abdominal pain vomiting or diarrhea. Chest x-ray was obtained which did not note any acute abnormality. No specific EKG changes. Patient received regular insulin 10 units bolus. Will be started on insulin drip. Bettencourt catheter was placed secondary to urinary continence and the measure urine output. Patient received a second liter of LR. Patient was discussed with hospitalist Dr. Ramon agreed to accept patient to ICU started on insulin drip. Concern for HHS. Impression Primary Impression: Hyperglycemia Additional Impression: BK (acute kidney injury) Disposition: ADMITTED INPATIENT Condition: Stable Admissions Decision to Admit Reason: Admit from ER (General) Decision to Admit/Date: Jan 26, 2023 Time/Decision to Admit Time: 17:20 Departure-Patient Inst. Referrals: MORA MUÑIZ JR, (PCP/Family) Primary Care Physician Scripts Lancets/Blood Glucose Strips (Lancet 30G-Glucose Test Strip) 30 Gauge Combo..pkg EACH MC for Hyperglycemia, #120 Prov: JOSIE SANDOVAL MD 01/28/23 Lancet/Gluc Strip/Needle/Gauze (Tempo Refill Kit (with Gauze)) 1 Each Kit EACH MC for Hyperglycemia, #1 Prov: JOSIE SANDOVAL MD 01/28/23 Blood-Glucose Meter (Accu-Chek Guide Me Glucose Mtr) 1 Each Each EACH MC for Hyperglycemia, #1 Prov: JOSIE SANDOVAL MD 01/28/23 Insulin Aspart (Novolog) 100 Unit/Ml Cartridge 10 UNITS SQ AC for 30 Days, #5 EA Prov: JOSIE SANDOVAL MD 01/28/23 Insulin Determir (Levemir) 100 Unit/Ml Soln 20 UNIT SQ HS, #5 EA Can give before evening meal with novolog can sub lantus or basaglar per insurance Prov: JOSIE SANDOVAL MD 01/28/23 SHIELA SORIANO Jan 26, 2023 16:55
[2023-01-26 17:00] LABS: BASOPHILS # (AUTO) 0.1 10^3/uL (0.0-0.1); BASOPHILS % (AUTO) 1 % (0-10); EOSINOPHILS # (AUTO) 0.2 10^3/uL (0.0-0.3); EOSINOPHILS % (AUTO) 2 % (0-10); HEMATOCRIT 43 % (40-54); HEMOGLOBIN 14.2 g/dL (13.3-17.7); LYMPHOCYTES # (AUTO) 1.8 10^3/uL (1.0-4.0); LYMPHOCYTES % (AUTO) 18 % (12-44); MEAN CORPUSCULAR HEMOGLOBIN 26 pg (25-34); MEAN CORPUSCULAR HGB CONC 33 g/dL (32-36); MEAN CORPUSCULAR VOLUME 79 fL (80-99); MEAN PLATELET VOLUME 9.8 fL (9.0-12.2); MONOCYTES # (AUTO) 0.6 10^3/uL (0.0-1.0); MONOCYTES % (AUTO) 6 % (0-12); NEUTROPHILS # (AUTO) 7.6 10^3/uL (1.8-7.8); NEUTROPHILS % (AUTO) 74 % (42-75); PLATELET COUNT 230 10^3/uL (130-400); WHITE BLOOD COUNT 10.3 10^3/uL (4.3-11.0)
[2023-01-26 17:11] LABS: ALBUMIN 4.5 GM/DL (3.2-4.5); POTASSIUM 3.2 MMOL/L (3.6-5.0)
[2023-01-26 17:13] LABS: CALCIUM 10.2 MG/DL (8.5-10.1)
[2023-01-26 17:14] LABS: TOTAL PROTEIN 8.6 GM/DL (6.4-8.2)
[2023-01-26 17:17] LABS: CREATININE SERUM 2.47 MG/DL (0.60-1.30)
[2023-01-26] MEDS ORDERED: inSUlin (REGULAR) HUMAN 1 UNIT/0.01 ML (CHARGE PER UNIT) IV ONE ×2 (17:30→18:45)
--- NOTE | 2023-01-26 17:33 | Diagnostic Imaging Report ---
INDICATION: sob COMPARISON: 08/02/2021. FINDINGS: Single frontal view of the chest demonstrates normal heart size and pulmonary vascularity. The lungs are well aerated and clear. No large pleural effusion or pneumothorax is seen. The visualized osseous structures show no acute abnormalities. IMPRESSION: 1. No acute cardiopulmonary process. Dictated by: Dictated on workstation # [id number]
[2023-01-26] MEDS ORDERED: LACTATED RINGERS 1,000 ML 1,000 ML IV STA (17:37)
[2023-01-26] MEDS ORDERED: POTASSIUM CL 10MEQ/50ML IVPB 50 ML IV ONE (17:45)
[2023-01-26] MEDS ORDERED: POTASSIUM CHLORIDE 20 MEQ TABLET PO ONE (17:45)
[2023-01-26] MEDS ORDERED: LIDOCAINE UROJET 2% GEL 10 ML PKG TOP ONE (18:00)
[2023-01-26 18:30] LABS: CLARITY,URINE CLEAR; COLOR,URINE YELLOW; GLUCOSE, URINE (UA) 3+ (NEGATIVE); PH,URINE 6.5 (5-9); PROTEIN,URINE NEGATIVE (NEGATIVE)
[2023-01-26 18:31] LABS: BACTERIA,URINE TRACE /HPF; BILIRUBIN,URINE NEGATIVE (NEGATIVE); KETONES,URINE NEGATIVE (NEGATIVE); LEUKOCYTE ESTERASE ,URINE NEGATIVE (NEGATIVE); NITRITE,URINE NEGATIVE (NEGATIVE)
[2023-01-26] MEDS ORDERED: CALCIUM CARBONATE 500 MG CHEW TABLET PO PRN (18:45)
[2023-01-26] MEDS ORDERED: MELATONIN 3 MG TABLET PO PRN (18:45)
[2023-01-26] MEDS ORDERED: ANTACID SUSPENSION 30 ML UDC PO PRN (18:45)
[2023-01-26] MEDS ORDERED: MILK OF MAGNESIA 400 MG/5 ML 30 ML UDC PO PRN (18:45)
[2023-01-26] MEDS ORDERED: ONDANSETRON INJECTION 4 MG/2 ML (SDV) IV PRN (18:45)
[2023-01-26] MEDS ORDERED: NS IV 1000 ML 1,000 ML IV SCH (18:45)
[2023-01-26] MEDS ORDERED: BISACODYL 10 MG SUPPOSITORY PR PRN (18:45)
[2023-01-26] MEDS ORDERED: ACETAMINOPHEN 325 MG TABLET PO PRN (18:45)
--- NOTE | 2023-01-26 18:58 | Tele-ICU Consult ---
History of Present Illness History of Present Illness Date Seen by Provider: Jan 26, 2023 Time Seen by Provider: 18:57 Date of Admission (Tele-ICU Physician , consultation as per request of PCP Service provided via interactive audio and video telecommunications E-CARE system to a patient admitted to ICU bed in [facility]. Available chart/ vitals / labs / Images reviewed H&P is from ER notes Patient's information available about PMH, Shx, Fhx allergy reviewed inEMR. ROS as per chart and RN report 67 y/o M with hx of HTN, CHF presented to ED with c/o deydration and increased water intake. A&OX3 no known diagnosis of DM. Noted to be hypoxic when EMS arrived to house at 88%. In ER labs notable for hyponatremia with sodium of 128, BK with creatinine of 2.47 and Blood sugar of 766. Betahydroxybutyrate was normal. pH on VBG norable. He was placed on insulin drip and admitted to MICU for possible HHS A&OX3 A/P HHS: Blood glucose 766 Started on insulin gtt per HHS protocol. AG 18 on admission. 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 Will cont IVF hydration per DKA/HHS protocol Will send off urine lytes u/a Lines : periph , (Central Line Necessity Reviewed) Bettencourt: Nutrition: NPO VTE Prophylaxis: heparin SQ Stress Ulcer Prophylaxis: N/A Plans in collaboration with bedside consultants and IM MDs. Discussed with RN to reach out if any questions or concerns A total of 25 minutes of critical care time was devoted to this patient today, required to treat and/or prevent further deterioration of critical care condition (as above) Allergies and Home Medications Allergies Coded Allergies: hydromorphone HCl (Unverified Allergy, Intermediate, ITCHING, HAS RECEIVED HYDROCODONE IN THE PAST, 11/16/15) fentanyl (Unverified Allergy, Mild, 12/30/08) nalbuphine (Unverified Allergy, Mild, RECEIVED MORPHINE IN OR, 11/16/15) LIV Inhibitors (Verified Allergy, Unknown, 06/28/21) Home Medications Ascorbic Acid 500 Mg Tablet, 500 MG PO BID, (Reported) Aspirin 81 Mg Tablet.dr, 81 MG PO HS, (Reported) Calcium Carbonate 600 Mg Tablet, 600 MG PO BID, (Reported) Cholecalciferol (Vitamin D3) 25 Mcg Tablet, 25 MCG PO BID, (Reported) Cyanocobalamin (Vitamin B-12) 1,000 Mcg Tablet, 1,000 MCG PO DAILY, (Reported) Cyclobenzaprine HCl 10 Mg Tablet, 10 MG PO HS, (Reported) Finasteride 5 Mg Tablet, 5 MG PO DAILY, (Reported) Furosemide 40 Mg Tablet, 40 MG PO BID Prescribed by: DAVE COPE on 08/03/21 0943 Gabapentin 600 Mg Tablet, 600 MG PO 0700,1200, (Reported) LAST FILLED 05-13-2021 #120/30 DAY SUPPLY Gabapentin 600 Mg Tablet, 1,200 MG PO HS, (Reported) TAKES 2 (600MG) TABS LAST FILLED 05-13-2021 #120/30 DAY SUPPLY Hydrochlorothiazide 25 Mg Tablet, 25 MG PO DAILY, (Reported) Hydrocodone Bit/Acetaminophen 1 Ea Tab, 1 EA PO Q6H Prescribed by: LOKESH CARDOZA MD on 02/02/22 1535 Hydrocodone/Acetaminophen 1 Each Tablet, 1 EACH PO Q6H PRN for PAIN-MODERATE (5- 7), (Reported) Levocetirizine Dihydrochloride 5 Mg Tablet, 5 MG PO HS, (Reported) Losartan Potassium 100 Mg Tablet, 100 MG PO DAILY, (Reported) Magnesium Oxide 500 Mg Tablet, 500 MG PO BID, (Reported) Melatonin 10 Mg Capsule, 10 MG PO HS, (Reported) Metaxalone 800 Mg Tablet, 800 MG PO BID, (Reported) Mv,Minerals/FA/Lycopene/Ginkgo 1 Each Tablet, 1 TAB PO DAILY, (Reported) Nebivolol HCl 10 Mg Tab, 10 MG PO HS, (Reported) [place] 3 Polyunsat Fatty Acids 1,000 Mg Cap, 1,000 MG PO DAILY, (Reported) Potassium Chloride 10 Meq Capsule.er, 10 MEQ PO BID, (Reported) Ropinirole HCl 2 Mg Tablet, 2 MG PO HS, (Reported) Rosuvastatin Calcium 10 Mg Tablet, 10 MG PO HS, (Reported) Tamsulosin HCl 0.4 Mg Cap, 0.4 MG PO DAILY, (Reported) Tramadol HCl 50 Mg Tablet, 50 MG PO QID PRN for PAIN-MODERATE (5-7), (Reported) Zinc 50 Mg Tablet, 50 MG PO DAILY, (Reported) Past Medical/Social/Family Hx Patient Social History Tobacco Use?: No Substance use?: No Alcohol Use?: No Immunizations Up To Date Tetanus Booster (TDap): Unknown Date of Pneumonia Vaccine: Apr 24, 2016 Current Status Primary Language: Egyptian Preferred Spoken Language: Egyptian Past Medical History BPH, HTN, chronic back pain, HLD, LIANA on CPAP Family Medical History Family Hx: SOCIAL HISTORY : -SMOKED A TEEN, NO SMOKING SINCE -ETOH--DENIES USE -DRUGS--DENIES USE PAST SURGICAL HISTORY: -APPENDECTOMY 10/[address] CATHERINE -LEFT HIP REPLACEMENT 2004 -BACK SURGERY X 2 IN 2003 -C-SPINE SURGERY 2003 -LEFT INGUINAL HERNIA REPAIR CHILD -CHOLECYSTECTOMY CARDIAC CATH [address] LUGO--ESSENTIALLY NORMAL -CARDIAC CATH 08/[address] LUGO: CONCLUSION: 1. Mild coronary artery disease, 40-50 percent proximal right coronary artery nonobstructive disease otherwise no significant obstructive disease 2. Normal left ventricular size and systolic function test and ejection fraction 60 percent 3. Normal aortic arch and great vessels of the neck Review of Systems Constitutional: no symptoms reported Focused Exam Height, Weight, BMI Height: 6'2.00" Weight: 274lbs. 0.0oz. 124.443869cp; 36.00 BMI Method:Stated Exam Exam Patient acknowledged, consented, and participated in this virtual visit which was conducted using real time audio/video Vital Signs Date Time Temp Pulse Resp B/P (MAP) Pulse Ox O2 Delivery O2 Flow Rate FiO2 01/26/23 16:57 Nasal Cannula 2.00 01/26/23 16:48 37.0 81 149/88 (108) 93 Room Air Height & Weight Height: 6'2.00" Weight: 274lbs. 0.0oz. 124.031193ts; 36.00 BMI Method:Stated General Appearance: No Apparent Distress, WD/WN HEENT: PERRL/EOMI, TMs Normal, Normal ENT Inspection, Pharynx Normal Neck: Full Range of Motion, Normal Inspection, Non Tender, Supple Respiratory: Chest Non Tender, Lungs Clear, Normal Breath Sounds, No Accessory Muscle Use, No Respiratory Distress Cardiovascular: Regular Rate, Rhythm, No Edema, No Gallop, No JVD Extremity: Normal Capillary Refill, Normal Inspection, Normal Range of Motion, Non Tender, No Calf Tenderness Neurologic/Psychiatric: Alert, Oriented x3, No Motor/Sensory Deficits, Normal Mood/Affect, 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 CHIP SHEPPARD MD Jan 26, 2023 18:58
[2023-01-26] MEDS ORDERED: D5 1/2 NS 1,000 ML IV 1,000 ML IV SCH (19:45)
[2023-01-26] MEDS ORDERED: 1/2 NS IV SOLUTION 1000 ML 1,000 ML IV SCH (19:45)
[2023-01-26] MEDS ORDERED: POTASSIUM CL 10MEQ/50ML IVPB 50 ML IV SCH (19:45)
[2023-01-26 20:32] VITALS: BP 109/72
[2023-01-26] MEDS ORDERED: POTASSIUM CL 10MEQ/50ML IVPB 200 ML IV ONE (20:42)
[2023-01-26] MEDS ORDERED: RT-Ipratropium/Albuterol NEB 3 ML VIAL INH PRN (21:00)
[2023-01-26] MEDS: NS IV 1000 ML 1,000 ML IV SCH (21:02)
[2023-01-26] MEDS: POTASSIUM CL 10MEQ/50ML IVPB 50 ML IV SCH ×2 (21:02→22:35)
[2023-01-26] MEDS ORDERED: DEXTROSE 50% 50 ML (IMS) SYR IV PRN ×2 (21:30)
[2023-01-27] MEDS: POTASSIUM CL 10MEQ/50ML IVPB 50 ML IV SCH ×3 (00:04→17:28)
[2023-01-27] MEDS: NS IV 1000 ML 1,000 ML IV SCH ×2 (05:13→08:14)
[2023-01-27 05:23] LABS: HEMATOCRIT 42 % (40-54); HEMOGLOBIN 13.7 g/dL (13.3-17.7); MEAN CORPUSCULAR HEMOGLOBIN 26 pg (25-34); MEAN CORPUSCULAR HGB CONC 33 g/dL (32-36); MEAN CORPUSCULAR VOLUME 80 fL (80-99); MEAN PLATELET VOLUME 10.2 fL (9.0-12.2); PLATELET COUNT 196 10^3/uL (130-400); WHITE BLOOD COUNT 8.5 10^3/uL (4.3-11.0)
[2023-01-27 05:38] LABS: CALCIUM 9.2 MG/DL (8.5-10.1)
[2023-01-27 05:39] LABS: POTASSIUM 2.4 MMOL/L (3.6-5.0)
[2023-01-27 05:43] LABS: CREATININE SERUM 1.41 MG/DL (0.60-1.30)
[2023-01-27] MEDS ORDERED: NS IV 500 ML 500 ML IV PRN (06:15)
--- NOTE | 2023-01-27 07:26 | History & Physical-Hospitalist ---
History of Present Illness HPI/Chief Complaint Pt is a 67-year-old male past medical history of hypertension CHF who presented to the emergency department due to weakness fatigue and hyperglycemia. He reports for the past couple of days he has been more rundown and very thirsty along with increased urinary frequency. He states he was going to the bathroom so often that he could not control it was having some urinary incontinence as well. At his 's urging he decided to go to urgent care yesterday and he was found to have blood sugars of 700. He denies any history of diabetes and reports he has never been told he is prediabetic. Was able to r eview some labs from a year or so ago and he has mostly been in the low 100s to 130s. In the emergency department he was found to have a blood sugar of 166. He did not appear to be in DKA but he did have an BK. He was admitted and started on insulin drip. This morning he repors feeling much better and has already eaten breakfast without issue. Source: patient Date Seen 01/27/23 Time Seen by a Provider: 07:26 Attending Physician Hunter Morales Jr, DO PCP Admitting Physician: Florian Ramon MD Attending Physician: Florian Ramon MD Referring Physician Date of Admission Jan 26, 2023 at 18:38 Home Medications & Allergies Home Medications Reviewed patient Home Medication Reconciliation performed by pharmacy medication reconciliations diesel automotive technician and/or nursing. Patients Allergies have been reviewed. Allergies Allergies Coded Allergies hydromorphone HCl (Unverified Allergy, Intermediate, ITCHING, HAS RECEIVED HYDROCODONE IN THE PAST, 11/16/15) fentanyl (Unverified Allergy, Mild, 12/30/08) nalbuphine (Unverified Allergy, Mild, RECEIVED MORPHINE IN OR, 11/16/15) LIV Inhibitors (Verified Allergy, Unknown, 06/28/21) Past Koafhbl-Nbmfsw-Cxesnn Hx Patient Social History Tobacco Use?: No Use of E-Cig and/or Vaping dev: No Substance use?: No Alcohol Use?: No Pt feels they are or have been: No Immunizations Up To Date Date of Influenza Vaccine: Jan 29, 2021 Tetanus Booster (TDap): Unknown Date of Pneumonia Vaccine: Apr 24, 2016 Seasonal Allergies Seasonal Allergies: No Current Status Advance Directives: No Communicates: Verbally Primary Language: [place] Preferred Spoken Language: [place] Is interpretation needed?: No Sensory deficits: Vision impairment Implanted or Applied Medical D: None Past Medical History Surgeries: Appendectomy, Cardiac, Gallbladder, Joint Replacement, Orthopedic Sleep Apnea Currently Using CPAP: Yes Chronic Edema/Swelling, High Cholesterol, Hypertension Prostate Problems Abdominal Hernia, Crohns Disease, C-Diff, Ulcer Degenerate Disk Disease, Back Injury, Chronic Back Pain Blood Disorders: No Adverse Reaction/Blood Tranf: No BPH, HTN, chronic back pain, HLD, LIANA on CPAP Family Medical History Unknown family medical history No Pertinent Family Hx SOCIAL HISTORY : -SMOKED A TEEN, NO SMOKING SINCE -ETOH--DENIES USE -DRUGS--DENIES USE PAST SURGICAL HISTORY: -APPENDECTOMY 10/[address] CATHERINE -LEFT HIP REPLACEMENT 2004 -BACK SURGERY X 2 IN 2003 -C-SPINE SURGERY 2003 -LEFT INGUINAL HERNIA REPAIR CHILD -CHOLECYSTECTOMY CARDIAC CATH [address] LUGO--ESSENTIALLY NORMAL -CARDIAC CATH 08/[address] LUGO: CONCLUSION: 1. Mild coronary artery disease, 40-50 percent proximal right coronary artery nonobstructive disease otherwise no significant obstructive disease 2. Normal left ventricular size and systolic function test and ejection fraction 60 percent 3. Normal aortic arch and great vessels of the neck Review of Systems Constitutional: see HPI Physical Exam Physical Exam Vital Signs Vital Signs - First Documented 01/26/23 01/26/23 01/26/23 16:48 16:57 19:00 Temp 37.0 Pulse 81 Resp 21 B/P (MAP) 149/88 (108) Pulse Ox 93 O2 Delivery Room Air O2 Flow Rate 2.00 Capillary Refill : Height, Weight, BMI Height: 6'2.00" Weight: 274lbs. 0.0oz. 124.650155sy; 34.88 BMI Method:Stated General Appearance: No Apparent Distress, Obese Respiratory: Lungs Clear, No Accessory Muscle Use, No Respiratory Distress Cardiovascular: Regular Rate, Rhythm, No Murmur Gastrointestinal: Normal Bowel Sounds, Soft Extremity: No Calf Tenderness, Pedal Edema (trace, non pitting) Neurologic/Psychiatric: Alert, Oriented x3 Results Results/Procedures Labs Laboratory Tests 01/26/23 16:54 01/27/23 04:41 Patient resulted labs reviewed. Imaging: Reviewed Imaging Report Imaging [facility], [place] NAME: DUONG RODRÍGUEZ MED REC#: [id number] PT STATUS: ADM IN : 1955 PHYSICIAN: SHIELA SORIANO ADMIT DATE: 01/26/23/ICU Signed Date of Exam:01/26/23 CHEST 1 VIEW, AP/PA ONLY INDICATION: sob COMPARISON: 08/02/2021. FINDINGS: Single frontal view of the chest demonstrates normal heart size and pulmonary vascularity. The lungs are well aerated and clear. No large pleural effusion or pneumothorax is seen. The visualized osseous structures show no acute abnormalities. IMPRESSION: 1. No acute cardiopulmonary process. Dictated by: Dictated on workstation # [id number] Dict: 01/26/231729 Trans: 01/26/232112 [id number] Interpreted by: KELLY RAUSCH MD Electronically signed by: KELLY RAUSCH MD 01/26/232112 Assessment/Plan Admission Diagnosis HHS Admission Status: Inpatient Order (span 2 midnights) Reason for Inpatient Admission: see below Assessment and Plan HHS BK Hypokalemia BS 776 on arrival with no acidosis or ketosis Likely HHS No history of DM A1c ordered Started in insulin gtt- doing better- transition off Creatinine hussain to 1.4 from 2.47 on arrival Continue IVF, lower rate Dietary education ordered Patient education ordered for insulin education Replace K, Mag normal HTN CHF No acute needs Continue home meds when med rec done BPH DC irwin Resume home flomax and proscar Chronic back pain Was to get stimulator in back in 6 weeks Discussed importance of adequate BS control before surgery Cotninue home meds when med rec done DVT ppx: LoveFLORIAN Alanis MD Jan 27, 2023 07:26
--- NOTE | 2023-01-27 07:50 | Physical Therapy Evaluation ---
PT Evaluation-General Medical Diagnosis Admission Date Jan 26, 2023 at 18:38 Medical Diagnosis: hyperglycemia Onset Date: Jan 26, 2023 Therapy Diagnosis Therapy Diagnosis: debility Height/Weight Height (Feet): 6 Height (Inches): 2.00 Weight (Pounds): 274 Weight (Ounces): 0.0 Precautions Precautions/Isolations: Standard Precautions Referral Physician: Tristen Reason for Referral: Evaluation/Treatment Medical History Pertinent Medical History: Heart Failure, HTN Current History ER secondary to increase in thirst x 3-4 days, weakness, fatigue Reviewed History: Yes Social History Home: Single Level Current Living Status: Spouse Prior Prior Level of Function SCALE: Activities may be completed with or without assistive devices. 4-Sqqqzzxktr-lgnohzk completes the activity by him/herself with no assistance from a helper. 5-Set-up or Clean-up Assistance-helper sets up or cleans up; patient completes activity. [place] assists only prior to or following the activity. 4-Supervision or Touching Assistance-helper provides verbal cues and/or to uching/steadying and/or contact guard assistance as patient completes activity. Assistance may be provided throughout the activity or intermittently. 3-Partial/Moderate Assistance-helper does LESS THAN HALF the effort. [place] lifts, holds or supports trunk or limbs, but provides less than half the effort. 2-Substantial/Maximal Assistance-helper does MORE THAN HALF the effort. [place] lifts or holds trunk or limbs and provides more than half the effort. 3-Ctqaghyyt-azusol does ALL the effort. Patient does none of the effort to complete the activity. Or, the assistance of 2 or more helpers is required for the patient to complete the activity. If activity was not attempted, code reason: 7-Patient Refused. 9-Not Applicable-not attempted and the patient did not perform the activity before the current illness, exacerbation or injury. 10-Not Attempted due to Environmental Limitations-(lack of equipment, weather restraints, etc.). 88-Not Attempted due to Medical Conditions or Safety Concerns. Bed Mobility: 6 Transfers (B,C,W/C): 6 Gait: 6 Stairs: 6 Indoor Mobility (Ambulation): Independent Stairs: Independent Prior Devices Use: None PT Evaluation-Current Subjective Patient agrees to PT. Objective Patient Orientation: Normal For Age Attachments: [place] Catheter, IV ROM/Strength ROM Lower Extremities bilateral LE WFL Strength Lower Extremities 5/5 grossly bilateral LE all planes Integumentary/Posture Bladder Incontinence: [place] Cath Posture WFL Neuromuscular (Tone, Coordination, Reflexes) grossly intact Transfers Lying to Sitting/Side of Bed(Q: 6 Sit to Stand (QC): 6 Chair/Veo-db-Vwhis Xfer(QC): 6 Gait Mode of Locomotion: Walk Anticipated Mode of Locomotion: Walk Walk 10 feet (QC): 6 Distance: 15' Gait Assistive Device: None Comments/Gait Description safe and functional with no deviation Balance Sitting Static: Normal Sitting Dynamic: Normal Standing Static: Normal Standing Dynamic: Normal Assessment/Needs Patient is currently at independent LOF with all gross motor skills safely and does not require skilled PT intervention at this time. Patient agrees with assessment. Rehab Potential: Fair PT Plan Treatment/Plan Treatment Plan: Discontinue PT Treatment Duration: Jan 27, 2023 Frequency: 1 time per week Estimated Hrs Per Day: .25 hour per day Patient and/or Family Agrees t: Yes Time Time In: 714 Time Out: 724 DATE: Jan 27, 2023 Total Billed Treatment Time: 10 Total Billed Treatment 1 visit EVLow 10 min ABILIO DOMINGUEZ PT Jan 27, 2023 07:50
[2023-01-27] MEDS ORDERED: inSUlin DETERMIR 1 UNIT/0.01 ML (CHARGE PER UNIT) SQ ONE (08:15)
[2023-01-27] MEDS ORDERED: POTASSIUM CHLORIDE 20 MEQ TABLET PO ONE (08:45)
[2023-01-27] MEDS ORDERED: inSUlin ASPART 1 UNIT/0.01 ML (PER UNIT) SC SCH (11:00)
[2023-01-27] MEDS: ENOXAPARIN 40 MG/0.4 ML SYRINGE SQ SCH (11:13)
[2023-01-27] MEDS: FINASTERIDE 5 MG TABLET PO SCH (11:13)
--- NOTE | 2023-01-27 11:25 | Tele-ICU Progress Note ---
Subjective Date Seen by a Provider: Jan 27, 2023 Time Seen by a Provider: 11:17 Subjective/Events-last exam (Tele-ICU Physician , Progress Note ) Service provided via interactive audio and video telecommunications [facility] s te to a patient admitted to ICU bed in [facility]. Patient is seen today due to persistent need of ICU care Available chart/ vitals / labs / Images reviewed Video assessment done using teleICU camera, rest of exam as per RN He is a 67-year-old male with past medical history of 5.79 the moderate obesity presented with increased thirst and found to have a blood sugar more than 700 without ketosis suggestive of HHS hence he is admitted to the intensive care unit. He is also found to have an BK. Started on aggressive fluid therapy and insulin drip. Today he is awake alert oriented and his potassium is 2.4. Earlier he was given 60 mEq of potassium chloride orally and subsequently I have supplemented with 100 mEq of KCl rider. His blood sugars have come down to in the range of [id number] range. Now the insulin drip is being weaned off and will start on sliding scale with coverage. Impression 1. Hyperglycemia with hyperosmolar state with new onset diabetes mellitus 2. Acute kidney injury secondary to dehydration 3. History of hypertension. 4. Moderate obesity Recommendation 1. Continue hydration with IV fluids 2. Wean insulin drip and start on sliding scale with coverage 3. Correct electrolyte imbalance 4. Continue monitor his BUN and creatinine. 5. DVT prophylaxis Coordination of care with primary care physician and bedside consultants.. I am remotely monitoring this patient from Tele icu station in [place]. I am unable to do the bedside exam, and history/physical and pertinent information is taken from other notes in the computer and bedside staff. Certain portions of this document may have been dictated utilizing voice recognition technology such as [employer]. Inherent to this technology, typographical and grammatical errors may exist. As much as I am diligent to identify and correct to these mistakes, some errors may remain in the document. Critical care time devoted to this patient today is approximately is-20 minutes.- Sepsis Event Evaluation Height, Weight, BMI Height: 6'2.00" Weight: 274lbs. 0.0oz. 124.150131et; 34.88 BMI Method:Stated Exam Exam Patient acknowledged, consented, and participated in this virtual visit which was conducted using real time audio/video Vital Signs Date Time Temp Pulse Resp B/P (MAP) Pulse Ox O2 Delivery O2 Flow Rate FiO2 01/27/23 11:00 73 135/86 (98) NIV CPAP 01/27/23 10:00 75 143/81 (98) NIV CPAP 01/27/23 09:00 77 134/81 (98) NIV CPAP 01/27/23 08:00 36.0 01/27/23 08:00 71 136/98 (121) 98 NIV CPAP 01/27/23 07:00 57 01/27/23 07:00 61 124/90 (101) 99 NIV CPAP 01/27/23 06:00 57 111/66 (81) 94 NIV CPAP 01/27/23 05:00 60 125/74 (91) 96 NIV CPAP 01/27/23 04:00 99 NIV CPAP 01/27/23 04:00 57 126/72 (90) 94 NIV CPAP 01/27/23 03:00 57 100/86 (91) 88 NIV CPAP 01/27/23 02:00 60 114/71 (85) 94 NIV CPAP 01/27/23 01:00 58 01/27/23 01:00 58 101/65 (77) 94 NIV CPAP 01/27/23 00:00 98 NIV CPAP 01/27/23 00:00 61 121/76 (91) 93 NIV CPAP 01/26/23 23:00 63 20 102/66 (78) 93 NIV CPAP 01/26/23 22:00 67 20 111/66 (81) 94 NIV CPAP 01/26/23 21:00 72 21 114/72 (86) 95 NIV CPAP 01/26/23 20:59 95 2.00 01/26/23 20:32 36.8 73 95 01/26/23 20:00 73 18 120/40 (66) 96 Nasal Cannula 2.00 01/26/23 20:00 96 Nasal Cannula 2.00 01/26/23 19:55 36.8 01/26/23 19:00 78 21 112/73 (86) 97 Nasal Cannula 2.00 01/26/23 19:00 73 01/26/23 18:37 75 109/72 95 Nasal Cannula 2.00 01/26/23 16:57 Nasal Cannula 2.00 01/26/23 16:48 37.0 81 149/88 (108) 93 Room Air I & O 10/6/23 07:00 Intake Total 2875 ml Output Total 2150 ml Balance 725 ml Height & Weight Height: 6'2.00" Weight: 274lbs. 0.0oz. 124.397334fp; 34.88 BMI Method:Stated General Appearance: No Apparent Distress, Obese HEENT: PERRL/EOMI, TMs Normal, Normal ENT Inspection, Pharynx Normal Neck: Full Range of Motion, Normal Inspection, Non Tender, Supple Respiratory: Lungs Clear, No Accessory Muscle Use, No Respiratory Distress Cardiovascular: Regular Rate, Rhythm, No Murmur Extremity: No Calf Tenderness, Pedal Edema (trace, non pitting) Neurologic/Psychiatric: Alert, Oriented x3 Skin: Normal Color Results Lab Laboratory Tests 01/26/23 16:54 01/27/23 04:41 Assessment/Plan Assessment/Plan as above Critical Care: Critically Ill Patient Time spent with patient (mins): 20 JENNIFER GROVER MD Jan 27, 2023 11:24
[2023-01-27 16:12] LABS: POTASSIUM 3.6 MMOL/L (3.6-5.0)
[2023-01-27 16:13] LABS: CALCIUM 8.7 MG/DL (8.5-10.1)
[2023-01-27 16:17] LABS: CREATININE SERUM 1.43 MG/DL (0.60-1.30); PHOSPHORUS 1.9 MG/DL (2.3-4.7)
[2023-01-27] MEDS ORDERED: TAMSULOSIN 0.4 MG (FLOMAX) CAP PO SCH (18:00)
[2023-01-27] MEDS ORDERED: inSUlin DETERMIR 1 UNIT/0.01 ML (CHARGE PER UNIT) SQ SCH (21:00)
[2023-01-27] MEDS: inSUlin ASPART 1 UNIT/0.01 ML (PER UNIT) SC SCH (21:35)
[2023-01-28] MEDS: NS IV 1000 ML 1,000 ML IV SCH (01:05)
[2023-01-28 01:09] VITALS: BP 192/90
[2023-01-28 01:59] VITALS: BP 130/82
[2023-01-28 05:00] VITALS: BP 134/86
[2023-01-28 05:40] LABS: HEMATOCRIT 42 % (40-54); HEMOGLOBIN 13.6 g/dL (13.3-17.7); MEAN CORPUSCULAR HEMOGLOBIN 26 pg (25-34); MEAN CORPUSCULAR HGB CONC 33 g/dL (32-36); MEAN CORPUSCULAR VOLUME 79 fL (80-99); MEAN PLATELET VOLUME 9.3 fL (9.0-12.2); PLATELET COUNT 209 10^3/uL (130-400); WHITE BLOOD COUNT 7.5 10^3/uL (4.3-11.0)
[2023-01-28 05:53] LABS: POTASSIUM 3.1 MMOL/L (3.6-5.0)
[2023-01-28 05:54] LABS: CALCIUM 8.8 MG/DL (8.5-10.1)
[2023-01-28 05:59] LABS: CREATININE SERUM 1.24 MG/DL (0.60-1.30)
[2023-01-28] MEDS ORDERED: POTASSIUM CL 10MEQ/50ML IVPB 50 ML IV SCH (06:00)
[2023-01-28] MEDS ORDERED: POTASSIUM CHLORIDE 20 MEQ TABLET PO SCH (06:00)
[2023-01-28] MEDS ORDERED: MAGNESIUM 1 GM/100 ML IVPB 100 ML IV SCH (06:00)
[2023-01-28] MEDS: inSUlin ASPART 1 UNIT/0.01 ML (PER UNIT) SC SCH ×2 (06:03→11:11)
[2023-01-28 07:26] VITALS: BP 163/88
[2023-01-28] MEDS ORDERED: POTASSIUM CHLORIDE 20 MEQ TABLET PO ONE (08:30)
[2023-01-28] MEDS ORDERED: METO5TAB6 PO (08:46)
[2023-01-28] MEDS: FINASTERIDE 5 MG TABLET PO SCH (09:43)
[2023-01-28] MEDS: ENOXAPARIN 40 MG/0.4 ML SYRINGE SQ SCH (09:43)
[2023-01-28] MEDS ORDERED: POTASSIUM CHLORIDE 10 MEQ TABLET PO ONE (10:00)
[2023-01-28] MEDS ORDERED: INSU100C3 SQ (10:42)
[2023-01-28] MEDS ORDERED: INSU100V5 SQ (10:42)
--- NOTE | 2023-01-28 10:51 | Discharge Summary ---
Diagnosis/Chief Complaint Date of Admission Jan 26, 2023 at 18:38 Date of Discharge Discharge Date: Jan 28, 2023 Admission Diagnosis [facility] Primary Care Hunter Morales Jr,DO Discharge Summary Discharge Physical Exam Allergies: Coded Allergies: hydromorphone HCl (Unverified Allergy, Intermediate, ITCHING, HAS RECEIVED HYDROCODONE IN THE PAST, 11/16/15) fentanyl (Unverified Allergy, Mild, 12/30/08) nalbuphine (Unverified Allergy, Mild, RECEIVED MORPHINE IN OR, 11/16/15) LIV Inhibitors (Verified Allergy, Unknown, 06/28/21) Vitals & I&Os Vital Signs Date Time Temp Pulse Resp B/P (MAP) Pulse Ox O2 Delivery O2 Flow Rate FiO2 01/28/23 08:00 Room Air 01/28/23 07:26 36.6 82 17 163/88 (113) 99 01/27/23 12:00 General Appearance: No Apparent Distress, WD/WN Cardiovascular: Regular Rate, Rhythm, No Edema, No Gallop, No JVD, No Murmur, Normal Peripheral Pulses Gastrointestinal: Normal Bowel Sounds, No Organomegaly, No Pulsatile Mass, Non Tender, Soft Hospital Course Was the Problem List Reviewed?: Yes Pt is a 67-year-old male past medical history of hypertension CHF who presented to the emergency department due to weakness fatigue and hyperglycemia. He reports for the past couple of days he has been more rundown and very thirsty along with increased urinary frequency. He states he was going to the bathroom so often that he could not control it was having some urinary incontinence as well. At his 's urging he decided to go to urgent care yesterday and he was found to have blood sugars of 700. He denies any history of diabetes and reports he has never been told he is prediabetic. Was able to review some labs from a year or so ago and he has mostly been in the low 100s to 130s. In the emergency department he was found to have a blood sugar of 166. He did not appear to be in DKA but he did have an BK. He was admitted and started on insulin drip. This morning he repors feeling much better and has already eaten breakfast without issue. Source: patient Kidney function essentially returned to normal creatinine was down to 1.24 with a BUN of 21 on discharge. Potassium is little bit low at 3.1 without symptoms he was given oral replacement which she will continue at home at 10 mill equivalents twice daily. CO2 levels remain normal so I did not meet criteria for DKA. We discussed the importance of lower glycemic index diet discussed in layman's terms. He was comfortable with giving himself insulin and was taught how to do fingersticks. He is aware of 24 glucose monitoring and was advised to discuss this with his primary care physician in [place]. He has an appointment this coming week on the . He will continue his home medications and initiate 20 mg of Levemir before his evening meal which is his only meal of the day and he will take 10 units of NovoLog insulin before his evening meal. He is not getting any fluid based calories otherwise except during the summer he will drink Gatorade he was advised just to stick with water or the 0 sugar electrolyte Gatorade. We discussed signs and symptoms of hypoglycemia as well he is to monitor his fingersticks if he is feeling symptomatic and before meals and at bedtime to take him to his primary care provider in the interim. Labs (last 24 hrs) Laboratory Tests 01/27/23 11:00: Glucometer 205H 01/27/23 15:56: Sodium Level 134L, Potassium Level 3.6, Chloride Level 98, Carbon Dioxide Level 24, Anion Gap 12, Blood Urea Nitrogen 29H, Creatinine 1.43H, Estimat Glomerular Filtration Rate 54, BUN/Creatinine Ratio 20, Glucose Level 343H, Calcium Level 8.7, Phosphorus Level 1.9L 01/27/23 21:27: Glucometer 379H 01/28/23 05:29: Sodium Level 137, Potassium Level 3.1L, Chloride Level 103, Carbon Dioxide Level 21, Anion Gap 13, Blood Urea Nitrogen 23H, Creatinine 1.24, Estimat Glomerular Filtration Rate 64, BUN/Creatinine Ratio 19, Glucose Level 291H, Calcium Level 8.8, White Blood Count 7.5, Red Blood Count 5.26, Hemoglobin 13.6, Hematocrit 42, Mean Corpuscular Volume 79L, Mean Corpuscular Hemoglobin 26, Mean Corpuscular Hemoglobin Concent 33, Red Cell Distribution Width 15.9H, Platelet Count 209, Mean Platelet Volume 9.3 Microbiology 01/26/23 MRSA Screen - Final, Complete MRSA not isolated Patient resulted labs reviewed. Pending Labs Laboratory Tests 01/28/23 05:29: White Blood Count 7.5, Red Blood Count 5.26, Hemoglobin 13.6, Hematocrit 42, Mean Corpuscular Volume 79, Mean Corpuscular Hemoglobin 26, Mean Corpuscular Hemoglobin Concent 33, Red Cell Distribution Width 15.9, Platelet Count 209, Mean Platelet Volume 9.3, Sodium Level 137, Potassium Level 3.1, Chloride Level 103, Carbon Dioxide Level 21, Anion Gap 13, Blood Urea Nitrogen 23, Creatinine 1.24, Estimat Glomerular Filtration Rate 64, BUN/Creatinine Ratio 19, Glucose Level 291, Calcium Level 8.8 Imaging: Reviewed Imaging Report Discussion & Recommendations Discharge Planning: >30 minutes discharge planning Discharge Home Medications: Active Scripts Active Novolog (Insulin Aspart) 100 Unit/Ml Cartridge 10 Units SQ AC 30 Days Levemir (Insulin Determir) 100 Unit/Ml Soln 20 Unit SQ HS Can give before evening meal with novolog can sub lantus or basaglar per insurance Furosemide 40 Mg Tablet 40 Mg PO BID 30 Days Reported Metolazone 5 Mg Tablet 5 Mg PO MON,WED,FRI Vitamin C with Clara Hips (Ascorbic Acid) 500 Mg Tablet 500 Mg PO DAILY Losartan Potassium 100 Mg Tablet 50 Mg PO DAILY Magnesium Oxide 500 Mg Tablet 500 Mg PO DAILY Vitamin B-12 (Cyanocobalamin (Vitamin B-12)) 1,000 Mcg Tablet 1,000 Mcg PO BID Zinc 50 Mg Tablet 50 Mg PO DAILY Hydrocodone-Acetamin 10-325 mg (Hydrocodone/Acetaminophen) 1 Each Tablet 1 Each PO Q6H PRN Vitamin D3 (Cholecalciferol (Vitamin D3)) 25 Mcg Tablet 25 Mcg PO BID Calcium Carbonate 600 Mg Tablet 600 Mg PO BID Ropinirole HCl 2 Mg Tablet 2 Mg PO HS Gabapentin 600 Mg Tablet 1,200 Mg PO HS TAKES 2 (600MG) TABS LAST FILLED 05-13-2021 #120/30 DAY SUPPLY Gabapentin 600 Mg Tablet 600 Mg PO 0700,1200 LAST FILLED 05-13-2021 #120/30 DAY SUPPLY Aspirin EC (Aspirin) 81 Mg Tablet.dr 81 Mg PO HS Crestor (Rosuvastatin Calcium) 10 Mg Tablet 10 Mg PO HS Flomax (Tamsulosin HCl) 0.4 Mg Cap 0.4 Mg PO DAILY Melatonin 10 Mg Capsule 10 Mg PO HS Fish Oil 1,000 mg Capsule ([place] 3 Polyunsat Fatty Acids) 1,000 Mg Cap 1,000 Mg PO DAILY One Daily Men's 50+ Tablet (Mv,Minerals/FA/Lycopene/Ginkgo) 1 Each Tablet 1 Tab PO DAILY Bystolic (Nebivolol HCl) 10 Mg Tab 10 Mg PO HS Metaxalone 800 Mg Tablet 800 Mg PO BID Levocetirizine Dihydrochloride 5 Mg Tablet 5 Mg PO HS Potassium Chloride 10 Meq Capsule.er 10 Meq PO BID Cyclobenzaprine HCl 10 Mg Tablet 10 Mg PO HS Tramadol HCl 50 Mg Tablet 50 Mg PO QID PRN Finasteride 5 Mg Tablet 5 Mg PO DAILY Instructions to patient/family Please see electronic discharge instructions given to patient. JOSIE SANDOVAL MD Jan 28, 2023 10:51
[2023-01-28] MEDS ORDERED: [UNRECOGNIZED DRUG - CODE] MC (11:43)
[2023-01-28] MEDS ORDERED: [UNRECOGNIZED DRUG - CODE] MC (11:43)
[2023-01-28] MEDS ORDERED: LANC1COM6 MC (11:43)
[2023-01-28 12:03] VITALS: BP 163/88
[2023-01-28] MEDS ORDERED: POTASSIUM CHLORIDE 10 MEQ TABLET PO SCH (21:00)
== END 2023-01-28 12:07 | disposition home or self-care (01) | DRG 638 ==
LOC: EDUNIT# 16:41 → ER 16:44 → ICU 18:13 → OBSVTOIN 18:38 → ICU 01-27 13:01 → 4TH 01-27 18:46
PROVIDERS: ADMIT Family Medicine; ATTEND Family Medicine
PROC: 5A09357 Assistance with Respiratory Ventilation, Less than 24 Consecutive Hours, Continuous Positive Airway Pressure (ICD-10-PCS; principal; 2023-01-26)
DX: E11.00 Type 2 diabetes mellitus with hyperosmolarity without nonketotic hyperglycemic-hyperosmolar coma (NKHHC) (principal); K50.90 Crohn's disease, unspecified, without complications; N17.9 Acute kidney failure, unspecified; I11.0 Hypertensive heart disease with heart failure; I50.9 Heart failure, unspecified; E86.0 Dehydration; E66.9 Obesity, unspecified; E78.00 Pure hypercholesterolemia, unspecified; G89.29 Other chronic pain; M54.9 Dorsalgia, unspecified; Z96.642 Presence of left artificial hip joint; E87.6 Hypokalemia; N40.0 Benign prostatic hyperplasia without lower urinary tract symptoms; Z79.82 Long term (current) use of aspirin; Z79.899 Other long term (current) drug therapy; Z20.822 Contact with and (suspected) exposure to COVID-19
CPT/HCPCS: 36415; 51702; 71045; 80048; 80053; 81000; 82010; 82805; 82947; 83036; 83690; 83735; 83880; 84100; 84484; 85025; 85027; 87081; 87636; 93005; 94760

== ENCOUNTER → 2023-02-14 | Outpatient (CLI) | payer MEDICARE ==
[~2023-02-14] MED LIST changes: +INSU100C3 SQ; +INSU100V5 SQ; +LANC1COM6 MC; +METO5TAB6 PO; +[UNRECOGNIZED DRUG - CODE] MC; +[UNRECOGNIZED DRUG - CODE] MC
== END ==
LOC: LAB 07:52
PROVIDERS: ATTEND Internal Medicine
DX: E11.65 Type 2 diabetes mellitus with hyperglycemia (principal); Z79.891 Long term (current) use of opiate analgesic
CPT/HCPCS: 36415; 83036; 84681